=== PATIENT | male | born 1955 | race Caucasian/White ===

== ENCOUNTER 2023-02-20 09:45 | Outpatient (CLI) | payer MEDICARE, OTHER, SELFPAY ==
[2023-02-20 22:27] LABS: PSA Screen* < 0.06 ng/mL (0.10-4.00)
== END 2023-02-20 09:46 | disposition home or self-care (01) ==
PROVIDERS: Visit Provider Nurse Practitioner Family
DX: Z00.00 Encounter for general adult medical examination without abnormal findings (principal); E78.5 Hyperlipidemia, unspecified; I10 Essential (primary) hypertension; R53.83 Other fatigue; I48.0 Paroxysmal atrial fibrillation; R06.09 Other forms of dyspnea; Z85.46 Personal history of malignant neoplasm of prostate
CPT/HCPCS: 84153; 84443; 85025; 86376

== ENCOUNTER 2023-03-27 19:53 | Outpatient (CLI) | payer OTHER, MEDICARE, SELFPAY ==
--- NOTE | 2023-04-03 08:48 | W.PM.SLEEP ---
Sleep Study Details Details Interpreting Provider: Rosalind Date of Sleep Study: 03/27/23 Sleep Study Details: STUDY TYPE:? Home unattended ? BMI:? 30.2 ORDERING PROVIDER:Melvin Mccauley INDICATION:? Concerns about sleep apnea ? SLEEP SUMMARY:? 469 minutes monitored RESPIRATORY SUMMARY:? AHI 56.7, left lateral 47.3, right lateral 72.8 Low oxygen 83 70.7% of the study oxygen less than 90% Snoring 0.8% PERIODIC LIMB MOVEMENTS OF SLEEP:? Not recorded during home study CARDIAC:? Range 52-83, mean 60 beats per minute IMPRESSION:? Severe obstructive sleep apnea worse in the right lateral position. Significant hypo oxygenation noted during 70% of the study. RECOMMENDATION: Recommend in-lab titration due to significant hypo oxygenation. Once effective therapy is established recommend overnight oximetry to determine if patient will require nocturnal oxygen. Further cardiopulmonary evaluation may be indicated.
== END 2023-03-27 19:54 | disposition home or self-care (01) ==
LOC: SLEEP 19:54
PROVIDERS: Visit Provider Nurse Practitioner Family
DX: G47.33 Obstructive sleep apnea (adult) (pediatric) (principal)
CPT/HCPCS: 95806

== ENCOUNTER 2023-04-05 12:44 | Outpatient (CLI) | payer OTHER, MEDICARE, SELFPAY | END 2023-04-05 12:45 | disposition home or self-care (01) | LOC: RAD 12:49 | PROVIDERS: PCP Nurse Practitioner Family; Visit Provider Nurse Practitioner Family | DX: R06.09 Other forms of dyspnea (principal); I51.7 Cardiomegaly; I34.0 Nonrheumatic mitral (valve) insufficiency | CPT/HCPCS: 93306 ==

== ENCOUNTER 2023-05-22 07:27 | Outpatient (CLI) | payer OTHER, MEDICARE, SELFPAY ==
[2023-05-22] MEDS: SODIUM CHLORIDE 0.9 % (FLUSH) 10 ML SYRINGE IVF (09:17)
[2023-05-22] MEDS: REGADENOSON 0.4 MG/5 ML SYRINGE IVP (09:17)
[2023-05-22 09:21] VITALS: BP 212/85; PULSE 77; RESP 16
--- NOTE | 2023-05-22 10:28 | W.PM.STED ---
Stress Test Note Date Date Seen: 05/22/23 Date of test: 05/22/23 Providers Referring provider: Reginaldo King Primary care provider: Sapna Mccauley Stress test physician: Felipa Barger Stress Test Note Stress test ordered: Lexiscan Indication for test: Dyspnea Stress test medicine: Lexiscan Results discussion: Resting EKG: Sinus rhythm, 67 beats per minute. Resting blood pressure: 190/90 Stress test: Patient was exercise following the walking Lexiscan protocol. He did tolerate this. He had no chest pain, felt some dyspnea with this but did not seem clinically significantly altered. He felt brief period of stomach symptoms. There were no definitive EKG changes, quite a bit of artifact during exercise. One PVC was seen. No definite ischemic change or arrhythmia. Await nuclear images to couple this for a full formal diagnostic. Blood pressure was 201/91. Impression: Negative EKG portion of the Lexiscan. Follow up suggested: Patient will get his post stress images taken, all will be sent to Radiology/Cardiology for reading. He will anticipate a call back from his product safety technical assistant's office once this test has been read. He was discharged in stable condition.
== END 2023-05-22 11:37 | disposition home or self-care (01) ==
PROVIDERS: PCP Nurse Practitioner Family; Visit Provider Internal Medicine Cardiovascular Disease
DX: R06.09 Other forms of dyspnea (principal); R06.02 Shortness of breath
CPT/HCPCS: 78452; 93016; 93017; A9500; J2785

== ENCOUNTER 2023-12-20 15:24 | Outpatient (REF) | payer OTHER, MEDICARE, SELFPAY ==
[2023-12-20 18:00] LABS: PSA Screen* < 0.06 ng/mL (0.10-4.00)
== END 2023-12-20 15:25 | disposition home or self-care (01) ==
LOC: NPINS 15:24
PROVIDERS: PCP Nurse Practitioner Family; Visit Provider Urology
DX: C61 Malignant neoplasm of prostate (principal); E78.5 Hyperlipidemia, unspecified
CPT/HCPCS: 80061; G0103

== ENCOUNTER 2024-01-17 10:38 | Outpatient (CLI) | payer MEDICARE, OTHER, SELFPAY ==
--- NOTE | 2024-01-17 11:00 | CRLHL7_ITS ---
For Patients: As a result of the Century Cures Act, medical imaging exams and procedure reports are released immediately into your electronic medical record. You may view this report before your referring provider. If you have questions, please contact your health care provider. Indication: History of pulmonary nodules, former smoker Technique: Noncontrast CT of the chest with multiplanar reformats. Comparison: CT chest abdomen pelvis dated 10/08/2023 Findings: Lungs: No consolidation. No effusion. No pneumothorax. Few scattered pulmonary nodules, largest in the right lower lobe measuring 4 millimeters, unchanged from prior examination with no new or enlarging nodules appreciated. Mediastinum: Three-vessel calcified coronary arterial atherosclerosis. Calcified atherosclerosis of the aorta branch vessels. Lymph nodes: No gross lymphadenopathy. Upper abdomen: Hepatic steatosis. Soft tissues: No significant abnormality appreciated. Bones: Degenerative changes of the spine and pelvis. Impression: 1. Few scattered pulmonary nodules, unchanged from prior examination no new or enlarging nodules appreciated. No dedicated follow-up recommended. 2. Three-vessel calcified coronary arterial atherosclerosis. 3. Hepatic steatosis. Please note that all CT scans at this facility use dose modulation, iterative reconstruction, and/or weight-based dosing when appropriate to reduce radiation dose to as low as reasonably achievable. Dictated by Deny Durham MD @ 01/22/2024 5:05:37 PM (Electronically Signed)
== END 2024-01-17 10:39 | disposition home or self-care (01) ==
LOC: CT 10:39
PROVIDERS: PCP Nurse Practitioner Family; Visit Provider Nurse Practitioner Family
DX: Z87.898 Personal history of other specified conditions (principal); R91.8 Other nonspecific abnormal finding of lung field; I25.10 Atherosclerotic heart disease of native coronary artery without angina pectoris; K76.0 Fatty (change of) liver, not elsewhere classified; Z87.891 Personal history of nicotine dependence
CPT/HCPCS: 71250

== ENCOUNTER 2024-02-19 07:54 | Outpatient (CLI) | payer OTHER, MEDICARE, SELFPAY ==
--- NOTE | 2024-02-19 09:26 | W.ANESCHARGE ---
Anesthesia Charges Start Date/Time Anesthesia Start Date: 02/19/24 Anesthesia Start Time: 08:45 Stop Date/Time Anesthesia Stop Date: 02/19/24 Anesthesia Stop Time: 09:21
--- NOTE | 2024-02-19 10:24 | W.ANESCHARGE ---
Anesthesia Charges Start Date/Time Anesthesia Start Date: 02/19/24 Anesthesia Start Time: 08:45 Stop Date/Time Anesthesia Stop Date: 02/19/24 Anesthesia Stop Time: 09:21
== END 2024-02-19 07:55 | disposition home or self-care (01) ==
PROVIDERS: PCP Nurse Practitioner Family; Visit Provider Surgery
DX: Z12.11 Encounter for screening for malignant neoplasm of colon (principal); K63.89 Other specified diseases of intestine; K57.30 Diverticulosis of large intestine without perforation or abscess without bleeding
CPT/HCPCS: 00811; 45380; 88305; J2704

== ENCOUNTER 2024-03-25 08:14 | Outpatient (CLI) | payer MEDICARE, OTHER, SELFPAY ==
--- OUTSIDE RECORDS SUMMARY | 2024-03-25 08:28 | XMS_ITS | Encounter Summary ---
Author Organization [facility] Address [address] [place] [address] Care Team Providers Care Wine Merchant Name Role Phone Bin Camacho MD Primary Care Provider [phone] Encounter Details Date Type Department Care Team (Late st Contact Info) Description 02/13/2024 Orders Only [facility] [place] [address] [facility] [address] [place] [address] Jagjit Martinez MD [address] [place] [address] Social History Tobacco Use Types Packs/Day Years Used Date Smoking Tobacco: Former Cigarettes Q uit: 1989 Smokeless Tobacco: Never Alcohol Use Standard Drinks/Week Comments Not Currently 0 (1 standard drink = 0.6 oz pur e alcohol) quit 30 yrs ago Sex and Gender Information Value Date Recorded Sex Assigned at Not on file Gender Identity Not on file Sexual Orientation Not on file documented as of this encounter Plan of Treatment Not on file documented as of this encounter Procedures Procedure Name Priority Date/Time Associated Diagnosis Comments HD KINETICS Routine 02/13/2024 POST CHEMISTRY Routine 02/13/2024 HEMATOLOGY Routine 02/13/2024 CHEMISTRY Routine 02/13/2024 CHEMISTRY Routine 02/13/2024 [facility] RESULTS Routine 02/13/2024 documented in this encounter Results * [facility] Lab Results (02/13/2024) eKdrt/V 1.43 [facility] eNPCR 1.12 [facility] WSTDKT/V 2.5 [facility] eKt/V ([place]) 1.37 [facility] PCR 74.15 [facility] spKt/V Gotch 1.69 [facility] [place] eKt/V Gotch 1.43 [facility] e Center nPCR_HD 1.21 [facility] spKt/V (Daugirdas II) 1.59 [facility] 02/13/2024 02/13/2024 Ordering Provider LAB BLOOD ORDERABLE S [facility] Contact Performing lab Unknown, [place] * HD KINETICS (02/13/2024) Pathologist [facility] % Urea Reduction 74 65 - 80 % [facility] 02/13/2024 02/15/2024 6:3 4 AM CDT Narrative Resulting Agency Comment Specimen source: Plasma Jagjit Martinez MD LAB BLOOD ORDERABLES [facility] See order comments or contact performing lab Unknown, [place] * POST CHEMISTRY (02/13/2024) Pathologist [facility] BUN Post Dialysis 17 6 - 19 mg/dL [facility] 02/13/2024 02/15/2024 6:3 4 AM CDT Narrative [facility] - 02/15/2024 Unless otherwise specified, test(s) performed at: [facility], [address] [place] [address], [place] [address] INJECTION WAX MOLDER: Arnoldo Patricio M.D., Ph.D For any questions, please call customer service at FREQUENCY:MONTHLY Resulting Agency Comment Specimen source: Plasma Jagjit Martinez MD LAB BLOOD ORDERABLES [facility] See order comments or contact performing lab Unknown, [place] * (ABNORMAL) [facility] Chemistry (02/13/2024) BUN 66(H) 6 - 19 mg/dL [facility] Creatinine 8.88(H) 0.60 - 1.30 mg/dL [facility] BUN/Creatinine Ratio 7.4(L) 10.0 - 20.0 [facility] Sodium 138 136 - 145 mEq/L [facility] Potassium 4.9 3.5 - 5.1 mEq/L [facility] Chloride 104 96 - 108 mEq/L [facility] Bicarbonate (CO2) 23 20 - 31 mEq/L [facility] Calcium 9.9 8.7 - 10.4 mg/dL [facility] Comment: Please note change in reference range. Corrected Calcium 9.7 8.7 - 10.4 mg/dL [facility] Comment: Corrected Calcium is not equivalent to measured Ionized Calcium. Phosphorus 4.4 2.6 - 4.5 mg/dL [facility] Calcium Phosphorus Product 44 0 - 54 [facility] Calcium Phosporus Product, Cor 43 0 - 54 [facility] Alkaline Phosphatase 145(H) 40 - 129 U/L [facility] Total Protein 6.6 6.0 - 8.5 g/dL [facility] Albumin 4.2 3.5 - 5.2 g/dL [facility] Globulin, Total 2.4 2.0 - 4.0 g/dL [facility] A/G Ratio 1.8 1.0 - 2.0 [facility] Magnesium 2.2 1.6 - 2.6 mg/dL [facility] Ferritin 1,114(H) 22 - 322 ng/mL [facility] Iron 231(H) 45 - 160 mcg/dL [facility] UIBC <25(L) 155 - 355 mcg/dL [facility] TIBC 245 185 - 515 mcg/dL [facility] Iron Saturation (TSat) 94(H) 20 - 55 % [facility] 02/13/2024 02/15/2024 4:4 6 AM CDT Narrative [facility] - 02/15/2024 Unless otherwise specified, test(s) performed at: [facility], [address] [place] [address], [place] [address] INJECTION WAX MOLDER: Arnoldo Patricio M.D., Ph.D For any questions, please call customer service at FREQUENCY:MONTHLY Resulting Agency Comment Specimen source: Serum Jagjit Martinez MD LAB BLOOD ORDERABLES [facility] See order comments or contact performing lab Unknown, [place] * (ABNORMAL) HEMATOLOGY (02/13/2024) WBC 9.31 4.80 - 10.80 1000/mcL [facility] RBC 3.31(L) 4.70 - 6.10 mill/mcL [facility] Hematocrit 34.9(L) 42.0 - 52.0 % [facility] MCV 105(H) 80 - 100 fl [facility] MCH 32.2(H) 27.0 - 31.0 pg [facility] MCHC 30.5 30.0 - 36.0 g/dL [facility] RDW 12.8 11.5 - 14.5 % [facility] Hemoglobin 10.6(L) 14.0 - 18.0 g/dL [facility] Hemoglobin x 3 31.8(L) 42.0 - 54.0 % [facility] Platelets 254 130 - 400 1000/mcL [facility] 02/13/2024 02/15/2024 6:2 5 AM CDT Narrative [facility] - 02/15/2024 Unless otherwise specified, test(s) performed at: [facility], [address] [place] [address], [place] [address] INJECTION WAX MOLDER: Arnoldo Patricio M.D., Ph.D For any questions, please call customer service at FREQUENCY:MONTHLY Resulting Agency Comment Specimen source: Blood Jagjit Martinez MD LAB BLOOD ORDERABLES [facility] See order comments or contact performing lab Unknown, [place] * (ABNORMAL) [facility] Chemistry (02/13/2024) PTH 551(H) 16 - 80 pg/mL [facility] 02/13/2024 02/15/2024 4:1 7 AM CDT Narrative [facility] - 02/15/2024 Unless otherwise specified, test(s) performed at: [facility], [address] [place] [address], [place] [address] INJECTION WAX MOLDER: Arnoldo Patricio M.D., Ph.D For any questions, please call customer service at FREQUENCY:MONTHLY Resulting Agency Comment Specimen source: Plasma Jagjit Martinez MD LAB BLOOD ORDERABLES [facility] See order comments or contact performing lab Unknown, [place] documented in this encounter Visit Diagnoses Not on filedocumented in this encounter Care Teams Wine Merchant Relationship Specialty [place] [address] [place] [address] PCP - General Family Medicine 09/08/20 documented as of this encounter
--- OUTSIDE RECORDS SUMMARY | 2024-03-25 08:28 | XMS_ITS | Encounter Summary ---
Author Organization [facility] Address [address] [place] [address] Care Team Providers Care Surgical Supply Assistant Name Role Phone Bin Camacho MD Primary Care Provider [phone] Encounter Details Date Type Department Care Team (Late st Contact Info) Description 03/24/2024 Treatment [facility] [place] [address] [place] [address] Jagjit Martinez MD [address] [place] [address] Social History Tobacco Use Types [...] on file documented as of this encounter Miscellaneous Notes * Dialysis Note - Jagjit Martinez MD - 03/24/2024 11:07 AM CDT Date: Mar 24, 2024 Patient Name: Obi Mcdowell : 1955 Chart #: [id number] Sex: M This patient was personally seen for a complete visit as part of routine monthly dialysis care. A review of the dialysis treatment, blood pressure, estimated dry weight and recent lab values was made. These were discussed with the patient and staff as necessary. Treatment Medication Orders Medication Sig Start Date End Date Heparin Sodium (Porcine) 1,000 Units/mL Systemic 2000 units IVP Every Treatment 03/21/2024 03/20/2025 Heparin Sodium (Porcine) 1,000 Units/mL Systemic 3000 units IVP Every Treatment 01/02/2024 12/31/2024 Mircera 30 mcg IVP Every 4 weeks 02/20/2024 02/18/2025 HAND RUG BRAIDER: Jagjit Martinez MD LOCATION: [phone] SCHEDULE: -- 1st Shift EDW: kg. DIALYZER: HD DURATION: NEEDLE SIZE: ANTICOAG: BATH: QB: ml/min QD: ml/min Subjective Tolerating dialysis well. Good appetite. Reports no trouble with access. 03/24/24: He is feeling well. He did get hypotensive after treatment on Sunday afterward and felt woozy for a short time after he left. I was called and EDW was increased. He felt well over the weekend. Advanced Practitioner Subjective FOOD MIXER REPAIRER 03/05/2024: Patient seen at chairside. Doing good. Had recent mole removal. Several follow-ups scheduled. He has another area on his abdomen that will be removed next. He reports that he will see ENT today after dialysis for evaluation for Inspire for sleep apnea. Denies SOB, chest pain, crampingor dizziness. AVF has been functional; no reported issues from staff. BP stable. Leaving close to EDW with recent runs. Continue plan of care. FOOD MIXER REPAIRER 01/28/2024: Seen while on dialysis. States that he feels good. Denies SOB, chest pain, cramping or dizziness. AVF in use and functional, no reported staff issues. BP stable on treatment. He had recent EDW increase. Episodes of dizziness and hypotension has improved. Continues to complete Tx work-up. He saw Dermatology 2 weeks ago; biopsies obtained. Waiting for results. Will continue to challenge EDW as tolerated. Review of Systems None reported. Except as above. 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 Cardiovascular - Regular rate. Regular rhythm. No murmur heard. Edema - No leg edema. Access - AVF lower arm in use and good t/b Medication List Medication Sig Start Date atorvastatin 20 mg tablet once a day. take 1 tablet by mouth every night at bedtime. clonidine HCl 0.2 mg tablet Take 1/2 tablet by mouth twice a day as directed. do not take before dialysis Eliquis (apixaban) 5 mg tablet Take 1 tablet by mouth twice a day 03/24/2024 hydralazine 50 mg tablet Take 1 tablet by mouth three times a day as directed. do not take before dialysis. 11/07/2023 metoprolol tartrate 50 mg tablet Take 1 tablet by mouth twice a day as directed. does not take before dialysis MWF nifedipine 60 mg tablet extended release Take 1 tablet by mouth twice a day as directed omeprazole 20 mg tablet,delayed release (DR/EC) Take 1 tablet by mouth as directed as directed. prn RenaPlex-D (vit b,f-qu-exqc-selen-vit d3-e) 800 mcg-12.5 mg-2,000 unit tablet Take 1 tablet by mouth every evening 01/14/2024 Sensipar (cinacalcet) 30 mg tablet Take 1 tablet by mouth once a day as directed. TAKE 1 TABLET BY MOUTH EVERY DAY Velphoro (sucroferric oxyhydroxide) 500 mg tablet,chewable Take 3 tablet by mouth three times a daywith meals 11/12/2023 Allergy List Allergen Reaction Reaction Severity Onset Date nkda Medications reviewed and no changes were made. Treatment and Adequacy Assessment BUN mg/dL 72 (03/12/24) 66 (02/13/24) 78 (01/09/24) 77 (12/12/23) 59 (11/07/23) UREA NITROGEN (MG/DL) IN SER/PLAS - POST DIALYSIS mg/dL 20 (03/12/24) 17 (02/13/24) 21 (01/09/24) 20 (12/12/23) 16 (11/07/23) URR % 72 (03/12/24) 74 (02/13/24) 73 (01/09/24) 74 (12/12/23) 73 (11/07/23) spKt/V Gotch 1.56 (03/12/24) 1.69 (02/13/24) 1.56 (01/09/24) 1.66 (12/12/23) 1.56 (11/07/23) eKdrt/V 1.32 (03/12/24) 1.43 (02/13/24) 1.32 (01/09/24) 1.41 (12/12/23) 1.32 (11/07/23) spKt/V (Daugirdas II) 1.4900 (03/12/24) 1.5900 (02/13/24) 1.5100 (01/09/24) 1.5800 (12/12/23) 1.5100 (11/07/23) Dialysis is adequate. Achieves prescribed time - Yes Achieves prescribed frequency - Yes Continue current prescription. Vascular Access Assessment Type of access: FistulaRUE lower arm Anemia Assessment HEMOGLOBIN (G/DL) IN BLOOD g/dL 11.2 (03/19/24) 10.9 (03/12/24) 11.2 (03/05/24) 10.9 (02/27/24) 10.5 (02/20/24) PLATELETS 1000/mcL 256 (03/12/24) 254 (02/13/24) 259 (01/09/24) 229 (12/12/23) 283 (11/07/23) FERRITIN ng/mL 1114 (02/13/24) 689 (11/07/23) 581 (08/15/23) 477 (05/09/23) 365 (04/11/23) TRANSFERRIN SAT% % 75 (03/12/24) 94 (02/13/24) 62 (01/09/24) 60 (12/12/23) 58 (11/07/23) Hemoglobin is above goal. Iron Saturation is at goal. Ferritin is at goal. Will adjust ELIANA and intravenous iron per protocol. Nutritional and Metabolic Assessment ALBUMIN (G/DL) g/dL 4.2 (03/12/24) 4.2 (02/13/24) 4.1 (01/09/24) 4.1 (12/12/23) 4.3 (11/07/23) Sodium mEq/L 138 (03/12/24) 138 (02/13/24) 138 (01/09/24) 139 (12/12/23) 138 (11/07/23) POTASSIUM (MMOL/L) IN SER/PLAS mEq/L 4.6 (03/12/24) 4.9 (02/13/24) 4.1 (01/09/24) 4.5 (12/12/23) 4.3 (11/07/23) BICARBONATE (CO2) mEq/L 23 (03/12/24) 23 (02/13/24) 22 (01/09/24) 22 (12/12/23) 25 (11/07/23) 25 OH VITAMIN D ng/mL 27.7 (11/07/23) 30.2 (05/09/23) Albumin is at goal. Encourage high-biological value protein intake. Potassium is at goal. Bicarbonate is at goal. Continue same bicarbonate in dialysate. Bone and Mineral Metabolism Assessment CALCIUM mg/dL 10.3 (03/12/24) 9.9 (02/13/24) 9.5 (01/09/24) 9.5 (12/12/23) 9.9 (11/07/23) CALCIUM (MG/DL) CORRECTED FOR ALBUMIN IN SER/PLAS mg/dL 10.1 (03/12/24) 9.7 (02/13/24) 9.4 (01/09/24) 9.4 (12/12/23) 9.7 (11/07/23) PHOSPHATE (MG/DL) IN SER/PLAS mg/dL 5.9 (03/12/24) 4.4 (02/13/24) 4.7 (01/09/24) 4.4 (12/12/23) 4.6 (11/28/23) CALCIUM PHOSPHORUS PRODUCT, COR 60 (03/12/24) 43 (02/13/24) 44 (01/09/24) 41 (12/12/23) 62 (11/07/23) IPTH pg/mL 551 (02/13/24) 596 (11/07/23) 681 (10/10/23) 796 (09/19/23) 694 (09/12/23) Corrected Calcium is above goal. Phosphorous is above goal. Intact PTH is at goal. Last Model Department Supervisor will adjust binders and vitamin D per protocol and continue to provide dietary education. Continue Sensipar - he was out for a couple of weeks prior to lab but is now back on so will keep dose 30mg and re-check Velphoro increased to 3 with meals previously Cardiovascular Assessment Blood pressures reviewed and are acceptable. Intradialytic weight gains are appropriate. Estimated dry weight is too low, will increase. Continue same cardiovascular medications. Increase EDW by 1 kg Transplant Status: Patient has evaluation underway. Center - [place] He declines COVID vaccination. I notified him on 01/22/23 that COVID vaccine policy has changed to recommended rather than required and he is being worked up. Nearing completion of work-up to be listed, c-scope completed in February. Had skin cancer removed. To have PSA checked and sent to his Urologist. Hopefully will be active by end of year Resuscitation Status Discussed with patient 05/23/22 who requested Full Code. Stable dialysis, no changes today beside increase in EDW as above Change NOAC to Eliquis which is better with dialysis patients Will discuss with Tx, however, as may need to be on warfarin when becomes active on kidney Tx list. Jagjit Martinez MD [ Signed And locked electronically On 03/24/2024 at 11:10:36 AM ] Transcribed: Jagjit Martinez ( 03/24/2024 ) documented in this encounter Plan of Treatment Not on file documented as of this encounter Visit Diagnoses Not on filedocumented in this encounter Care Teams Surgical Supply Assistant Relationship Specialty [place] [address] [place] [address] PCP - General Family Medicine 09/08/20 documented as of this encounter
--- OUTSIDE RECORDS SUMMARY | 2024-03-25 08:28 | XMS_ITS | Encounter Summary ---
Author Organization [facility] Address [address] [place] [address] Care Team Providers Care Newborn Hearing Screener Name Role Phone Bin Camacho MD Primary Care Provider [phone] Encounter Details Date Type Department Care Team (Late st Contact Info) Description 02/22/2024 Treatment [facility] [address] [place] [address] Jagjit Martinez MD [address] [place] [address] Social History Tobacco Use Types [...] Dialysis Note - Jagjit Martinez MD - 02/22/2024 10:40 AM CDT Date: Feb 22, 2024 Patient Name: Obi Mcdowell : 1955 Chart #: [id number] Sex: M This patient was personally seen for a complete visit as part of routine monthly dialysis care. A review of the dialysis treatment, blood pressure, estimated dry weight and recent lab values was made. These were discussed with the patient and staff as necessary. Treatment Data for 02/22/2024 started at:6:16 AM Dialyzer: 180NRe Optiflux Na: 137 mEq/L Bicarb: 31 mEq/L Dialysate: 2.0 K, 2.5 Ca, 1.0 Mg, 100 Dextrose (G2251) Dialysate/Machine Temp (prescribed): 37 C Dialysate/Machine Temp (actual): 37.4 C BFR (prescribed): 450 BFR (actual): 450 Prescribed time: 03:30 EDW: 105 kg Access Type: Active (In Use):AVFistula-Standard/Right Upper Arm Pre Dialysis Vitals (for 02/22/2024 6:06 AM ) Pre BP (sit): 129/68 Pre Wt: 107.6 kg Temp: 97.8 F Post Dialysis Vitals (for 02/20/2024 9:52 AM ) Post BP (sit): 147/73 Post Wt: 105 kg Current Dialysis Vitals (for 02/22/2024 9:32 AM ) BP (sit): 119/65 AP(-) / SIZING SPRAYER: 219/172 Pulse: 68 Chairside data as of 02/22/2024 9:32 AM Last 3 Treatments 02/20/2024 02/18/2024 02/15/2024 EDW (kg) 105.3 105.3 105.3 Weight Pre (kg) 106.9 109.2 107.5 Weight Post (kg) 105 105.8 105.2 Dialytic Weight Loss (kg) -1.9 -3.4 -2.3 EDW Deviation (kg) -0.3 0.5 -0.1 BP Sit Pre 144/68 148/80 126/67 BP Sit Post 147/73 130/67 115/69 UF Rate (mL/kg/hr) 5 9 6 Prescribed BFR 450 450 450 Average Delivered BFR 450 450 450 Prescribed Treatment Time 03:30 03:30 03:30 Actual Treatment Time 03:35 03:30 03:33 Last 3 Values 02/11/2024 12/21/2023 12/14/2023 Access Flow 6372 1106 > 2000 Treatment Medication Orders Medication Sig Start Date End Date Heparin Sodium (Porcine) 1,000 Units/mL Systemic 3000 units IVP Every Treatment 01/02/2024 12/31/2024 Mircera 30 mcg IVP Every 4 weeks 02/20/2024 02/18/2025 BILINGUAL LOAN PROCESSOR: Jagjit Martinez MD LOCATION: [phone] SCHEDULE: - 1st Shift EDW: kg. DIALYZER: HD DURATION: NEEDLE SIZE: ANTICOAG: BATH: QB: ml/min QD: ml/min Subjective Tolerating dialysis well. Good appetite. Reports no trouble with access. 02/22/24: He is doing very well. Had c-scope done and it was clear. Has skin cancer removal scheduled in [place]. No symptoms on dialysis. BP controlled. Denies any new symptoms. AVF working well. Advanced Practitioner Subjective PHLEBOTOMIST LAB ASSISTANT 01/28/2024: Seen while on dialysis. States that [...] Will continue to challenge EDW as tolerated. PHLEBOTOMIST LAB ASSISTANT 12/12/2023: Patient seen at chairside. Feeling well. Has a few things to complete for transplant listing. Denies SOB, chest pain, cramping or dizziness. AVF has been functional; no reported issues from staff. BP stable. Leaving close to EDW with recent runs. Continue plan of care. Review of Systems None reported. Except as [...] Exam Respiratory - Clear to auscultation bilaterally. nl effort Cardiovascular - Regular rate. Regular rhythm. No [...] as directed. do not take before dialysis hydralazine 50 mg tablet Take 1 tablet [...] as directed as directed. prn RenaPlex-D (vit b,a-lj-puli-selen-vit d3-e) 800 mcg-12.5 mg-2,000 unit tablet Take 1 tablet by mouth every evening 01/14/2024 Sensipar (cinacalcet) 30 mg tablet Take 1 tablet by mouth once a day as directed. TAKE 1 TABLET BY MOUTH EVERY DAY Velphoro (sucroferric oxyhydroxide) 500 mg tablet,chewable Take 3 tablet by mouth three times a daywith meals 11/12/2023 Xarelto (rivaroxaban) 10 mg tablet Take 1 tablet by mouth every evening with meals Allergy List Allergen Reaction Reaction Severity Onset Date nkda Medications reviewed and no changes were made. Treatment and Adequacy Assessment BUN mg/dL 66 (02/13/24) 78 (01/09/24) 77 (12/12/23) 59 (11/07/23) 80 (10/10/23) UREA NITROGEN (MG/DL) IN SER/PLAS - POST DIALYSIS mg/dL 17 (02/13/24) 21 (01/09/24) 20 (12/12/23) 16 (11/07/23) 22 (10/10/23) URR % 74 (02/13/24) 73 (01/09/24) 74 (12/12/23) 73 (11/07/23) 73 (10/10/23) spKt/V Gotch 1.69 (02/13/24) 1.56 (01/09/24) 1.66 (12/12/23) 1.56 (11/07/23) 1.59 (10/10/23) eKdrt/V 1.43 (02/13/24) 1.32 (01/09/24) 1.41 (12/12/23) 1.32 (11/07/23) 1.35 (10/10/23) spKt/V (Daugirdas II) 1.5900 (02/13/24) 1.5100 (01/09/24) 1.5800 (12/12/23) 1.5100 (11/07/23) 1.5200 (10/10/23) Dialysis is adequate. Achieves prescribed time - Yes Achieves prescribed frequency - Yes Continue current prescription. Vascular Access Assessment Type of access: FistulaRUE lower arm Anemia Assessment HEMOGLOBIN (G/DL) IN BLOOD g/dL 10.5 (02/20/24) 10.6 (02/13/24) 10.2 (02/06/24) 11.3 (01/30/24) 11.4 (01/23/24) PLATELETS 1000/mcL 254 (02/13/24) 259 (01/09/24) 229 (12/12/23) 283 (11/07/23) 290 (10/10/23) FERRITIN ng/mL 1114 (02/13/24) 689 (11/07/23) 581 (08/15/23) 477 (05/09/23) 365 (04/11/23) TRANSFERRIN SAT% % 94 (02/13/24) 62 (01/09/24) 60 (12/12/23) 58 (11/07/23) 97 (10/10/23) Hemoglobin is at goal. Iron Saturation is at goal. Ferritin is at goal. Will adjust ELIANA and intravenous iron per protocol. Nutritional and Metabolic Assessment ALBUMIN (G/DL) g/dL 4.2 (02/13/24) 4.1 (01/09/24) 4.1 (12/12/23) 4.3 (11/07/23) 4.4 (10/10/23) Sodium mEq/L 138 (02/13/24) 138 (01/09/24) 139 (12/12/23) 138 (11/07/23) 138 (10/10/23) POTASSIUM (MMOL/L) IN SER/PLAS mEq/L 4.9 (02/13/24) 4.1 (01/09/24) 4.5 (12/12/23) 4.3 (11/07/23) 4.6 (10/10/23) BICARBONATE (CO2) mEq/L 23 (02/13/24) 22 (01/09/24) 22 (12/12/23) 25 (11/07/23) 25 (10/10/23) 25 OH VITAMIN D ng/mL 27.7 (11/07/23) 30.2 (05/09/23) Albumin is at goal. Encourage high-biological value protein intake. Potassium is at goal. Bicarbonate is at goal. Continue same bicarbonate in dialysate. Bone and Mineral Metabolism Assessment CALCIUM mg/dL 9.9 (02/13/24) 9.5 (01/09/24) 9.5 (12/12/23) 9.9 (11/07/23) 9.5 (10/10/23) CALCIUM (MG/DL) CORRECTED FOR ALBUMIN IN SER/PLAS mg/dL 9.7 (02/13/24) 9.4 (01/09/24) 9.4 (12/12/23) 9.7 (11/07/23) 9.2 (10/10/23) PHOSPHATE (MG/DL) IN SER/PLAS mg/dL 4.4 (02/13/24) 4.7 (01/09/24) 4.4 (12/12/23) 4.6 (11/28/23) 6.4 (11/07/23) CALCIUM PHOSPHORUS PRODUCT, COR 43 (02/13/24) 44 (01/09/24) 41 (12/12/23) 62 (11/07/23) 62 (10/10/23) IPTH pg/mL 551 (02/13/24) 596 (11/07/23) 681 (10/10/23) 796 (09/19/23) 694 (09/12/23) Corrected Calcium is at goal. Phosphorous is at goal. Intact PTH is at goal. Retail Sales Professional will adjust binders and vitamin D per protocol and continue to provide dietary education. Continue Sensipar Velphoro increased to 3 with meals previously Cardiovascular Assessment Blood pressures reviewed and are acceptable. Intradialytic weight gains are appropriate. Estimated dry weight is appropriate. Continue same cardiovascular medications. He is doing better with fluid overall. Continue to work on consistent fluid gains that we can pull with <13 ml/kg/hr UF Transplant Status: Patient has evaluation underway. [place] He declines COVID vaccination. I notified him on 01/22/23 that COVID vaccine policy has changed to recommended rather than required and he is being worked up. Nearing completion of work-up to be listed, c-scope completed in February. Has to have a skin cancer removed over low abdomen next. Resuscitation Status Discussed with patient 05/23/22 who requested Full Code. Stable dialysis, no changes today. Jagjit Martinez MD [ Signed And locked electronically On 02/22/2024 at 10:41:37 AM ] Transcribed: Jagjit Martinez ( 02/22/2024 ) documented in this encounter Plan of Treatment Not on file documented as of this encounter Visit Diagnoses Not on filedocumented in this encounter Care Teams Newborn Hearing Screener Relationship Specialty [place] [address] [place] [address] PCP - General Family Medicine 09/08/20 documented as of this encounter
--- OUTSIDE RECORDS SUMMARY | 2024-03-25 08:28 | XMS_ITS | Encounter Summary ---
Author Organization [facility] Address [address] [place] [address] Care Team Providers Care Pedodontist Name Role Phone Bin Camacho MD Primary Care Provider [phone] Encounter Details Date Type Department Care Team (Late st Contact Info) Description 03/05/2024 Orders Only [facility] [place] [address] [facility] [address] [place] [address] Jagjit Martinez MD [address] [place] [address] Social History Tobacco Use Types [...] Procedure Name Priority Date/Time Associated Diagnosis Comments HEMATOLOGY Routine 03/05/2024 documented in this encounter Results * (ABNORMAL) HEMATOLOGY (03/05/2024) Hemoglobin 11.2(L) 14.0 - 18.0 g/dL [facility] Hemoglobin x 3 33.6(L) 42.0 - 54.0 % [facility] 03/05/2024 03/06/2024 7:4 4 AM CDT Narrative [facility] - 03/06/2024 Unless otherwise specified, test(s) performed at: [facility], [address] [place] [address], [place] [address] EMERGENCY VEHICLE OPERATOR: Arnoldo Patricio M.D., Ph.D For any questions, please call customer service at FREQUENCY:OTHER Resulting Agency Comment Specimen source: Blood Jagjit Martinez MD LAB BLOOD ORDERABLES [facility] See order comments or contact performing lab Unknown, [place] documented in this encounter Visit Diagnoses Not on filedocumented in this encounter Care Teams Pedodontist Relationship Specialty [place] [address] [place] [address] PCP - General Family Medicine 09/08/20 documented as of this encounter
--- OUTSIDE RECORDS SUMMARY | 2024-03-25 08:28 | XMS_ITS | Clinical Summary ---
Author Organization [facility] Address [address] [place] [address] Phone Care Team Providers Care River Expedition Guide Name Role Phone Bin Camacho MD Primary Care Provider [phone] Allergies No known active allergies Medications Medication Sig Dispensed Refills Start Date End Date Status cloNIDine (CATAPRES) 0.2 MG tablet Take 0.2 mg by mouth twice a day 08/23/2020 Active clopidogrel (PLAVIX) 75 MG tablet Take 75 mg by mouth 1 (one) time each day 11/01/2020 Active hydrALAZINE 100 MG tablet Take 1 tablet (100 mg total) by mouth in the morning and 1 tablet (100 mg total) at noon and 1 tablet (100 mg total) in the evening and 1 tablet (100 mg total) before bedtime. 360 tablet 3 08/09/2021 Active sodium bicarbonate 650 MG tablet Take 3 tablets (1,950 mg total) by mouth in the morning and 3 tablets (1,950 mg total) in the evening and 3 tablets (1,950 mg total) before bedtime. 810 tablet 3 08/09/2021 Active NIFEdipine XL (PROCARDIA XL) 60 MG 24 hr tablet TAKE 1 TABLET(60 MG) BY MOUTH TWICE DAILY. DO NOT CRUSH, CHEW, OR SPLIT 180 tablet 2 09/26/2021 Active metoprolol tartrate (LOPRESSOR) 50 MG tablet Take 1 tablet (50 mg total) by mouth in the morning and 1 tablet (50 mg total) in the evening. 60 tablet 3 11/29/2021 Active torsemide (Demadex) 20 MG tabletIndications:St age 4 chronic kidney disease (HCC) Take 2 tablets (40 mg total) by mouth 1 (one) time each day 180 tablet 3 01/31/2022 Active calcitriol (ROCALTROL) 0.25 MCG capsule TAKE 1 CAPSULE BY MOUTH THREE TIMES WEEKLY ON SUNDAY, SUNDAY AND SUNDAY 36 capsule 2 03/08/2022 Active Calcium Acetate, Phos Binder, 667 MG capsuleIndications:H yperphosphatemia Take one capsule (667 mg) by mouth before each meal 90 capsule 3 04/06/2022 Active hydroCHLOROthiazide 25 MG tablet Take 1 tablet by mouth 1 (one) time each day Active lisinopril 40 MG tablet Take 40 mg by mouth 1 (one) time each day Active cloNIDine (CATAPRES) 0.1 MG tablet Take 0.1 mg by mouth in the morning and 0.1 mg in the evening. Active Active Problems Problem Noted Date Diagnosed Date Chronic kidney disease stage 4 09/09/2020 Hypertensive disorder 09/09/2020 Encounters Date Type Department Care Team Description 03/24/2024 Treatment [facility] [address] [place] [address] Jagjit Martinez MD 03/19/2024 Orders Only [facility] [address] [facility] [address] [place] [address] Jagjit Martinez MD 03/12/2024 Orders Only [facility] [address] [facility] [address] [place] [address] Jagjit Martinez MD 03/05/2024 Orders Only [facility] [address] [facility] [address] [place] [address] Jagjit Martinez MD 03/05/2024 Treatment [facility] [address] [facility] [address] [place] [address] Rosie Monsivais APRN-ELECTRIC RANGE SERVICER 02/27/2024 Orders Only [facility] [address] [place] [address] Jagjit Martinez MD 02/22/2024 Treatment [facility] [address] [place] [address] Jagjit Martinez MD 02/20/2024 Orders Only [facility] [address] [place] [address] Jagjit Martinez MD 02/13/2024 Orders Only [facility] [address] [facility] [place] [address] Jagjit Martinez MD 02/12/20[address] [facility] [address] [place] [address] Twyla Turk RN 02/06/2024 Orders Only [facility] [address] [place] [address] Jagjit Martinez MD 02/06/2024 Treatment [facility] [address] [place] [address] Jagjit Martinez MD 01/30/2024 Orders Only [facility] [address] [place] [address] Jagjit Martinez MD 01/28/2024 Treatment [facility] [address] [place] [address] Rosie Monsivais, CLOTHES IRONER-ELECTRIC RANGE SERVICER 01/23/2024 Orders Only [facility] [address] [place] [address] Jagjit Martinez MD 01/16/2024 Orders Only [facility] [address] [facility] [place] [address] Jagjit Martinez MD 01/09/2024 Orders Only [facility] [place] [address] [place] [address] Jagjit Martinez MD 01/02/2024 Orders Only [facility] [address] [place] [address] Jagjit Martinez MD 01/02/2024 Treatment [facility] [address] [place] [address] Jagjit Martinez MD 12/26/2023 Orders Only [facility] [address] [facility] [address] [place] [phone] Jagjit Martinez MD from Last 3 Months Family History Medical History Relation Comments Cancer Brother Heart disease Father Cancer Mother Heart disease Sister Hypertension Sister Relation Status Comments Brother Alive Father Mother Sister Alive Social History Tobacco Use Types Packs/Day Years Used Date Smoking Tobacco: Former Cigarettes Q uit: 1989 Smokeless Tobacco: Never Tobacco Cessation:Counseling Given: Not Answered Alcohol Use Standard Drinks/Week Comments Not Currently 0 (1 standard drink = 0.6 oz pur e alcohol) quit 30 yrs ago Sex and Gender Information Value Date Recorded Sex Assigned at Not on file Gender Identity Not on file Sexual Orientation Not on file Last Filed Vital Signs Vital Sign Reading Time Taken Comments Blood Pressure 125/80 04/06/2022 8:51 AM CDT Pulse 80 04/06/2022 8:51 AM CDT Temperature 36.4 ??C (97.5 ??F) 11/05/2020 3:26 PM CD T Respiratory Rate - - Oxygen Saturation - - Inhaled Oxygen Concentration - - Weight 101 kg (223 lb) 04/06/2022 8:51 AM CDT Height 188 cm (6' 2) 01/31/2022 2:43 PM CDT Body Mass Index 28.63 01/31/2022 2:43 PM CDT Plan of Treatment Health Maintenance Due Date Last Done Comments Pneumococcal Vaccine: 65+ Years (1 of 2 - PCV) 961 Hepatitis B Vaccine (1 of 5 - Risk Dialysis 4-dose series) 1974 Colorectal Cancer Screening: Annual FOBT 2003 Colorectal Cancer Screening: Colonoscopy 2003 Colorectal Cancer Screening: Sigmoidoscopy 2003 Influenza Vaccine (#1) 2024 Procedures Procedure Name Priority Date/Time Associated Diagnosis Comments HEMATOLOGY Routine 03/19/2024 [facility] RESULTS Routine 03/12/2024 HD KINETICS Routine 03/12/2024 POST CHEMISTRY Routine 03/12/2024 CHEMISTRY Routine 03/12/2024 HEMATOLOGY Routine 03/12/2024 HEMATOLOGY Routine 03/05/2024 HEMATOLOGY Routine 02/27/2024 HEMATOLOGY Routine 02/20/2024 [facility] RESULTS Routine 02/13/2024 HD KINETICS Routine 02/13/2024 POST CHEMISTRY Routine 02/13/2024 CHEMISTRY Routine 02/13/2024 HEMATOLOGY Routine 02/13/2024 CHEMISTRY Routine 02/13/2024 HEMATOLOGY Routine 02/06/2024 HEMATOLOGY Routine 01/30/2024 HEMATOLOGY Routine 01/23/2024 HEMATOLOGY Routine 01/16/2024 [facility] LAB RESULTS Routine 01/09/2024 HD KINETICS Routine 01/09/2024 CHEMISTRY Routine 01/09/2024 POST CHEMISTRY Routine 01/09/2024 HEMATOLOGY Routine 01/09/2024 HEMATOLOGY Routine 01/02/2024 HEMATOLOGY Routine 12/26/2023 from Last 3 Months Results * (ABNORMAL) HEMATOLOGY (03/19/2024) Only the most recent of13 resultswithin the time period is included. Pathologist [facility] Hemoglobin 11.2(L) 14.0 - 18.0 g/dL [facility] Hemoglobin x 3 33.6(L) 42.0 - 54.0 % [facility] 03/19/2024 03/20/2024 3:4 7 PM CDT Narrative [facility] - 03/20/2024 Unless otherwise specified, test(s) performed at: [facility], [address] [place] [address], [place] [address] DENIER CONTROL OPERATOR: Arnoldo Patricio M.D., Ph.D For any questions, please call customer service at FREQUENCY:OTHER Resulting Agency Comment Specimen source: Blood Jagjit Martinez MD LAB BLOOD ORDERABLES Performing Organization Address [facility] de Phone Number [email or web address] See order comments or contact performing lab Unknown, [place] * HD KINETICS (03/12/2024) Only the most recent of3 resultswithin the time period is included. Pathologist [facility] % Urea Reduction 72 65 - 80 % [facility] 03/12/2024 03/14/2024 2:4 9 PM CDT Narrative Resulting Agency Comment Specimen source: Plasma Jagjit Martinez MD LAB BLOOD ORDERABLES Performing Organization Address [facility] de Phone Number [email or web address] See order comments or contact performing lab Unknown, [place] * (ABNORMAL) POST CHEMISTRY (03/12/2024) Only the most recent of3 resultswithin the time period is included. BUN Post Dialysis 20(H) 6 - 19 mg/dL [facility] 03/12/2024 03/14/2024 2:4 9 PM CDT Narrative [facility] - 03/14/2024 Unless otherwise specified, test(s) performed at: [facility], [address] [place] [address], [place] [address] DENIER CONTROL OPERATOR: Arnoldo Patricio M.D., Ph.D For any questions, please call customer service at FREQUENCY:MONTHLY Resulting Agency Comment Specimen source: Plasma Jagjit Martinez MD LAB BLOOD ORDERABLES [facility] See order comments or contact performing lab Unknown, [place] * (ABNORMAL) [facility] (03/12/2024) Only the most recent of4 resultswithin the time period is included. BUN 72(H) 6 - 19 mg/dL [facility] Creatinine 8.45(H) 0.60 - 1.30 mg/dL [facility] BUN/Creatinine Ratio 8.5(L) 10.0 - 20.0 [facility] Sodium 138 136 - 145 mEq/L [facility] Potassium 4.6 3.5 - 5.1 mEq/L [facility] Chloride 102 96 - 108 mEq/L [facility] Bicarbonate (CO2) 23 20 - 31 mEq/L [facility] Calcium 10.3 8.7 - 10.4 mg/dL [facility] Comment: Please note change in reference range. Custom Exception Corrected Calcium 10.1 8.7 - 10.4 mg/dL [facility] Comment: Corrected Calcium is not equivalent to measured Ionized Calcium. Phosphorus 5.9(H) 2.6 - 4.5 mg/dL [facility] Calcium Phosphorus Product 61(H) 0 - 54 [facility] Calcium Phosporus Product, Cor 60(H) 0 - 54 [facility] Total Protein 6.7 6.0 - 8.5 g/dL [facility] Albumin 4.2 3.5 - 5.2 g/dL [facility] Globulin, Total 2.5 2.0 - 4.0 g/dL [facility] A/G Ratio 1.7 1.0 - 2.0 [facility] Iron 200(H) 45 - 160 mcg/dL [facility] UIBC 65(L) 155 - 355 mcg/dL [facility] TIBC 265 185 - 515 mcg/dL [facility] Iron Saturation (TSat) 75(H) 20 - 55 % [facility] 03/12/2024 03/14/2024 2:1 3 PM CDT Narrative [facility] - 03/14/2024 Unless otherwise specified, test(s) performed at: [facility], [address] [place] [address], [place] [address] DENIER CONTROL OPERATOR: Arnoldo Patricio M.D., Ph.D For any questions, please call customer service at FREQUENCY:MONTHLY Resulting Agency Comment Specimen source: Serum Jagjit Martinez MD LAB BLOOD ORDERABLES [facility] See order comments or contact performing lab Unknown, [place] * [facility] Results (03/12/2024) Only the most recent of3 resultswithin the time period is included. PCR 78.86 [facility] spKt/V Gotch 1.56 [facility] eKdrt/V 1.32 [facility] eNPCR 1.15 [facility] eKt/V ([place]) 1.28 [facility] WSTDKT/V 2.4 [facility] eKt/V Gotch 1.32 [facility] e [facility] spKt/V (Daugirdas II) 1.49 [facility] nPCR_HD 1.30 [facility] 03/12/2024 03/12/2024 [place] Ordering Provider LAB BLOOD ORDERABLE S [facility] Contact Performing lab Unknown, [place] from Last 3 Months Care Teams River Expedition Guide Relationship Specialty [place] [address] [place] [address] PCP - General Family Medicine 09/08/20
--- OUTSIDE RECORDS SUMMARY | 2024-03-25 08:28 | XMS_ITS | Encounter Summary ---
Author Organization [facility] Address [address] [facility] [address] [place] [address] Care Team Providers Care Sales Advisory Manager Name Role Phone Bin Camacho MD Primary Care Provider [phone] Encounter Details Date Type Department Care Team (Late st Contact Info) Description 02/27/2024 Orders Only [facility] [place] [address] [facility] [address] [place] [address] Jagjit Martinez MD [address] [place] [address] Social History Tobacco Use Types [...] Priority Date/Time Associated Diagnosis Comments HEMATOLOGY Routine 02/27/2024 documented in this encounter Results * (ABNORMAL) HEMATOLOGY (02/27/2024) Hemoglobin 10.9(L) 14.0 - 18.0 g/dL [facility] Hemoglobin x 3 32.7(L) 42.0 - 54.0 % [facility] 02/27/2024 02/28/2024 7:5 7 AM CDT Narrative [facility] - 02/28/2024 Unless otherwise specified, test(s) performed at: [facility], [address] [place] [address], [place] [address] CONCRETE FLOAT MAKER: Arnoldo Patricio M.D., Ph.D For any questions, please call customer service at FREQUENCY:OTHER Resulting Agency Comment Specimen source: Blood Jagjit Martinez MD LAB BLOOD ORDERABLES [facility] See order comments or contact performing lab Unknown, [place] documented in this encounter Visit Diagnoses Not on filedocumented in this encounter Care Teams Sales Advisory Manager Relationship Specialty [place] [address] [place] [address] PCP - General Family Medicine 09/08/20 documented as of this encounter
--- OUTSIDE RECORDS SUMMARY | 2024-03-25 08:28 | XMS_ITS | Encounter Summary ---
Author Organization [facility] [place] Address [address] [place] [address] Care Team Providers Care Web Analytics Developer Name Role Phone Bin Camacho MD Primary Care Provider Encounter Details Date Type Department Care Team (Late st Contact Info) Description 03/05/2024 Treatment [facility] [place] [address] [place] [address] Uyen Monsivais APRN-BUDGET EXAMINER [address] [facility] [address] [place] [address] Social History Tobacco Use Types Packs/Day Years [...] encounter Miscellaneous Notes * Dialysis Note - Uyen Monsivais APRN-CNP - 03/05/2024 9:20 AM CDT Date: Mar 05, 2024 Patient Name: Obi Mcdowell : 1955 Chart #: [id number] Sex: M This patient was personally seen for a complete visit as part of routine monthly dialysis care. A review of the dialysis treatment, blood pressure, estimated dry weight and recent lab values was made. These were discussed with the patient and staff as necessary. Treatment Data for 03/05/2024 started at:6:10 AM Dialyzer: 180NRe Optiflux Na: 137 mEq/L Bicarb: 31 mEq/L Dialysate: 2.0 K, 2.5 Ca, 1.0 Mg, 100 Dextrose (G2251) Dialysate/Machine Temp (prescribed): 37 C Dialysate/Machine Temp (actual): 36.9 C BFR (prescribed): 450 BFR (actual): 450 Prescribed time: 03:30 EDW: 104.6 kg Access Type: Active (In Use):AVFistula-Standard/Right Upper Arm Pre Dialysis Vitals (for 03/05/2024 6:02 AM ) Pre BP (sit): 166/85 Pre Wt: 107.2 kg Temp: 97.6 F Post Dialysis Vitals (for 03/03/2024 9:55 AM ) Post BP (sit): 117/72 Post Wt: 104.6 kg Current Dialysis Vitals (for 03/05/2024 8:59 AM ) BP (sit): 168/81 AP(-) / DIGITAL DESIGN ENGINEER: 239/182 Pulse: 72 Chairside data as of 03/05/2024 8:59 AM Last 3 Treatments 03/03/2024 02/29/2024 02/27/2024 EDW (kg) 104.8 104.8 104.8 Weight Pre (kg) 107.1 107.1 108.6 Weight Post (kg) 104.6 104.2 105.2 Dialytic Weight Loss (kg) -2.5 -2.9 -3.4 EDW Deviation (kg) -0.2 -0.6 0.4 BP Sit Pre 160/97 164/94 151/82 BP Sit Post 117/72 152/84 132/79 UF Rate (mL/kg/hr) 7 8 9 Prescribed BFR 450 450 450 Average Delivered BFR 450 460 410 Prescribed Treatment Time 03:30 03:30 03:30 Actual Treatment Time 03:29 03:34 03:35 Last 3 Values 02/11/2024 12/21/2023 12/14/2023 Access Flow 1532 1106 > 2000 Treatment Medication Orders Medication Sig Start Date End Date Heparin Sodium (Porcine) 1,000 Units/mL Systemic 3000 units IVP Every Treatment 01/02/2024 12/31/2024 Mircera 30 mcg IVP Every 4 weeks 02/20/2024 02/18/2025 PRE ASSEMBLY WIRER: Jagjit Martinez MD LOCATION: [phone] SCHEDULE: -- 1st Shift EDW: kg. DIALYZER: HD DURATION: NEEDLE SIZE: ANTICOAG: BATH: QB: ml/min QD: ml/min Subjective Tolerating dialysis well. Good appetite. Reports no trouble with access. 02/22/24: He is doing very well. Had c-scope done and it was clear. Has skin cancer removal scheduled in [place]. No symptoms on dialysis. BP controlled. Denies any new symptoms. AVF working well. Advanced Practitioner Subjective COPY LATHE OPERATOR 03/05/2024: Patient seen at chairside. Doing good. [...] with recent runs. Continue plan of care. COPY LATHE OPERATOR 01/28/2024: Seen while on dialysis. States that [...] as directed as directed. prn RenaPlex-D (vit b,f-lq-hqve-selen-vit d3-e) 800 mcg-12.5 mg-2,000 unit tablet Take [...] Anemia Assessment HEMOGLOBIN (G/DL) IN BLOOD g/dL 10.9 (02/27/24) 10.5 (02/20/24) 10.6 (02/13/24) 10.2 (02/06/24) 11.3 (01/30/24) PLATELETS 1000/mcL 254 (02/13/24) 259 (01/09/24) 229 [...] at goal. Intact PTH is at goal. Skull Splitter will adjust binders and vitamin D per [...] UF Transplant Status: Patient has evaluation underway. [facility] [place] He declines COVID vaccination. I notified him on 01/22/23 that COVID vaccine policy has changed to recommended rather than required and he is being worked up. Nearing completion of work-up to be listed, c-scope completed in February. Has to have a skin cancer removed over low abdomen next. Resuscitation Status Discussed with patient 05/23/22 who requested Full Code. Stable dialysis, no changes today. UYEN MONSIVAIS NP [ Signed And locked electronically On 03/05/2024 at 09:25:00 AM ] Transcribed: UYEN MONSIVAIS ( 03/05/2024 ) documented in this encounter Plan of Treatment Not on file documented as of this encounter Visit Diagnoses Not on filedocumented in this encounter Care Teams Web Analytics Developer Relationship Specialty [place] [address] [place] [address] PCP - General Family Medicine 09/08/20 documented as of this encounter
--- OUTSIDE RECORDS SUMMARY | 2024-03-25 08:28 | XMS_ITS | Encounter Summary ---
Author Organization [facility] Address [address] [facility] [address] [place] [address] Care Team Providers Care Scalper Operator Name Role Phone Bin Camacho MD Primary Care Provider [phone] Encounter Details Date Type Department Care Team (Late st Contact Info) Description 03/12/2024 Orders Only [facility] [address] [facility] [address] [place] [address] Jagjit Martinez MD [address] [place] [address] Social History Tobacco Use Types [...] Date/Time Associated Diagnosis Comments HD KINETICS Routine 03/12/2024 POST CHEMISTRY Routine 03/12/2024 HEMATOLOGY Routine 03/12/2024 CHEMISTRY Routine 03/12/2024 [facility] RESULTS Routine 03/12/2024 documented in this encounter Results * [facility] Results (03/12/2024) Pathologist [facility] PCR 78.86 [facility] Center spKt/V Gotch 1.56 [facility] eKdrt/V 1.32 [facility] eNPCR 1.15 [facility] eKt/V ([place]) 1.28 [facility] WSTDKT/V 2.4 [facility] eKt/V Gotch 1.32 [facility] [place] spKt/V (Daugirdas II) 1.49 [facility] nPCR_HD 1.30 [facility] 03/12/2024 03/12/2024 Ricki Ordering Provider LAB BLOOD ORDERABLE S Performing Organization Address [facility] Co de Phone Number [facility] Contact Performing lab Unknown, [place] * HD KINETICS (03/12/2024) Pathologist [facility] % Urea Reduction 72 65 - 80 % [facility] 03/12/2024 03/14/2024 2:4 9 PM CDT Narrative Resulting Agency Comment Specimen source: Plasma Jagjit Martinez MD LAB BLOOD ORDERABLES Performing Organization Address [facility] de Phone Number [facility] [employer] See order comments or contact performing lab Unknown, [place] * (ABNORMAL) POST CHEMISTRY (03/12/2024) Pathologist [facility] BUN Post Dialysis 20(H) 6 - 19 mg/dL [facility] 03/12/2024 03/14/2024 2:4 9 PM CDT Narrative [facility] - 03/14/2024 Unless otherwise specified, test(s) performed at: [facility], [address] [place] [address], [place] [address] VAN OWNER OPERATOR: Arnoldo Patricio M.D., Ph.D For any questions, please call customer service at FREQUENCY:MONTHLY Resulting Agency Comment Specimen source: Plasma Jagjit Martinez MD LAB BLOOD ORDERABLES [facility] See order comments or contact performing lab Unknown, [place] * (ABNORMAL) [facility] Chemistry (03/12/2024) BUN 72(H) 6 - 19 mg/dL [facility] [...] 03/12/2024 03/14/2024 2:1 3 PM CDT Narrative [facility] - 03/14/2024 Unless otherwise specified, test(s) performed at: [facility], [address] [place] [address], [place] [address] VAN OWNER OPERATOR: Arnoldo Patricio M.D., Ph.D For any questions, please call customer service at FREQUENCY:MONTHLY Resulting Agency Comment Specimen source: Serum Jagjit Martinez MD LAB BLOOD ORDERABLES Performing Organization Address [facility] Co de Phone Number [facility] See order comments or contact performing lab Unknown, [place] * (ABNORMAL) HEMATOLOGY (03/12/2024) WBC 6.73 4.80 - 10.80 1000/mcL [facility] RBC 3.38(L) 4.70 - 6.10 mill/mcL [facility] Hematocrit 34.8(L) 42.0 - 52.0 % [facility] MCV 103(H) 80 - 100 fl [facility] MCH 32.2(H) 27.0 - 31.0 pg [facility] MCHC 31.3 30.0 - 36.0 g/dL [facility] RDW 13.7 11.5 - 14.5 % [facility] Hemoglobin 10.9(L) 14.0 - 18.0 g/dL [facility] Hemoglobin x 3 32.7(L) 42.0 - 54.0 % [facility] Platelets 256 130 - 400 1000/mcL [facility] 03/12/2024 03/14/2024 3:1 2 PM CDT Narrative [facility] - 03/14/2024 Unless otherwise specified, test(s) performed at: [facility], [address] [place] [address], [place] [address] VAN OWNER OPERATOR: Arnoldo Patricio M.D., Ph.D For any questions, please call Exchangeryer service at FREQUENCY:MONTHLY Resulting Agency Comment Specimen source: Blood Jagjit Martinez MD LAB BLOOD ORDERABLES Performing Organization Address [facility] Co de Phone Number [facility] See order comments or contact performing lab Unknown, [place] documented in this encounter Visit Diagnoses Not on filedocumented in this encounter Care Teams Scalper Operator Relationship Specialty [place] [address] [facility] [place] [address] PCP - General Family Medicine 09/08/20 documented as of this encounter
--- OUTSIDE RECORDS SUMMARY | 2024-03-25 08:28 | XMS_ITS | Encounter Summary ---
Author Organization [facility] Address [address] [facility] [address] [place] [address] Care Team Providers Care Laboratory Analyst Name Role Phone Bin Camacho MD Primary Care Provider Encounter Details Date Type Department Care Team (Late st Contact Info) Description 03/19/2024 Orders Only [facility] [place] [address] [facility] [address] [place] [address] Jagjit Martinez MD [address] [place] [address] Social History Tobacco Use Types [...] Date/Time Associated Diagnosis Comments HEMATOLOGY Routine 03/19/2024 documented in this encounter Results * (ABNORMAL) HEMATOLOGY (03/19/2024) Hemoglobin 11.2(L) 14.0 - 18.0 g/dL [facility] Hemoglobin x 3 33.6(L) 42.0 - 54.0 % [facility] 03/19/2024 03/20/2024 3:4 7 PM CDT Narrative [facility] - 03/20/2024 Unless otherwise specified, test(s) performed at: [facility], [address] [place] [address], [place] [address] CRUSHER SETTER: Arnoldo Patricio M.D., Ph.D For any questions, please call customer service at FREQUENCY:OTHER Resulting Agency Comment Specimen source: Blood Jagjit Martinez MD LAB BLOOD ORDERABLES [facility] See order comments or contact performing lab Unknown, [place] documented in this encounter Visit Diagnoses Not on filedocumented in this encounter Care Teams Laboratory Analyst Relationship Specialty [place] [address] [place] [address] PCP - General Family Medicine 09/08/20 documented as of this encounter
--- OUTSIDE RECORDS SUMMARY | 2024-03-25 08:28 | XMS_ITS | Encounter Summary ---
Author Organization [facility] Address [address] [facility] [address] [place] [address] Care Team Providers Care Broadcast Technician Name Role Phone Bin Camacho MD Primary Care Provider [phone] Encounter Details Date Type Department Care Team (Late st Contact Info) Description 02/20/2024 Orders Only [facility] [place] [address] [facility] [address] [place] [address] Jagjit Martinez MD [address] [place] [address] Social History Tobacco Use Types [...] Priority Date/Time Associated Diagnosis Comments HEMATOLOGY Routine 02/20/2024 documented in this encounter Results * (ABNORMAL) HEMATOLOGY (02/20/2024) Hemoglobin 10.5(L) 14.0 - 18.0 g/dL [facility] Hemoglobin x 3 31.5(L) 42.0 - 54.0 % [facility] 02/20/2024 02/21/2024 7:3 1 AM CDT Narrative [facility] - 02/21/2024 Unless otherwise specified, test(s) performed at: [facility], [address] [place] [address], [place] [address] [place]: Arnoldo Patricio M.D., Ph.D For any questions, please call customer service at FREQUENCY:OTHER Resulting Agency Comment Specimen source: Blood Jagjit Martinez MD LAB BLOOD ORDERABLES [facility] See order comments or contact performing lab Unknown, [place] documented in this encounter Visit Diagnoses Not on filedocumented in this encounter Care Teams Broadcast Technician Relationship Specialty [place] [address] [place] [address] PCP - General Family Medicine 09/08/20 documented as of this encounter
--- OUTSIDE RECORDS SUMMARY | 2024-03-25 08:29 | XMS_ITS | Encounter Summary ---
Author Organization [facility] Address [address] [facility] [facility] [address] [place] [address] Care Team Providers Care Hearing And Speech Assistant Name Role Phone Bin Camacho MD Primary Care Provider [phone] Encounter Details Date Type Department Care Team (Late st Contact Info) Description 12/26/2023 Orders Only [facility] [place] [address] [facility] [address] [place] [address] Jagjit Martinez MD [address] [place] [address] Social History Tobacco Use Types [...] Priority Date/Time Associated Diagnosis Comments HEMATOLOGY Routine 12/26/2023 documented in this encounter Results * (ABNORMAL) HEMATOLOGY (12/26/2023) Hemoglobin 10.9(L) 14.0 - 18.0 g/dL [facility] Hemoglobin x 3 32.7(L) 42.0 - 54.0 % [facility] Reticulocyte Hemoglobin 33.0(H) 25.4 - 31.8 pg [facility] 12/26/2023 12/28/2023 10: 33 AM CDT Narrative [facility] - 12/28/2023 Unless otherwise specified, test(s) performed at: [facility], [address] [place] [address], [place] [address] COUNTY HEALTH OFFICER: Arnoldo Patricio M.D., Ph.D For any questions, please call customer service at FREQUENCY:OTHER Resulting Agency Comment Specimen source: Blood Jagjit Martinez MD LAB BLOOD ORDERABLES [facility] See order comments or contact performing lab Unknown, [place] documented in this encounter Visit Diagnoses Not on filedocumented in this encounter Care Teams Hearing And Speech Assistant Relationship Specialty [place] [address] [place], [place] [id number] PCP - General Family Medicine 09/08/20 documented as of this encounter
--- OUTSIDE RECORDS SUMMARY | 2024-03-25 08:29 | XMS_ITS | Encounter Summary ---
Author Organization [facility] Address [address] [place] [address] Care Team Providers Care Power Distributor Name Role Phone Bin Camacho MD Primary Care Provider Encounter Details Date Type Department Care Team (Late st Contact Info) Description 02/12/2024 Telephone [facility] [place] [address] [place] [address] Twyla Turk, RN [address] [place] [address] Social History Tobacco Use Types Packs/Day Years [...] as of this encounter Miscellaneous Notes * Telephone Encounter - Twyla Turk RN - 02/12/2024 11:54 AM CDT Pt called with questions regarding colonoscopy prep. Requested that he ask his dialysis nurse tomorrow. He voiced understanding. documented in this encounter Plan of Treatment Not on file documented as of this encounter Visit Diagnoses Not on filedocumented in this encounter Care Teams Power Distributor Relationship Specialty [place] [address] [place] [address] PCP - General Family Medicine 09/08/20 documented as of this encounter
--- OUTSIDE RECORDS SUMMARY | 2024-03-25 08:29 | XMS_ITS | Encounter Summary ---
Author Organization [facility] Address [address] [facility] [address] [address] [place] [address] Care Team Providers Care Reinsurance Analyst Name Role Phone Bin Camacho MD Primary Care Provider [phone] Encounter Details Date Type Department Care Team (Late st Contact Info) Description 01/09/2024 Orders Only [facility] [place] [address] [facility] [address] [place] [address] Jagjit Martinez MD [address] [place] [address] Social History Tobacco Use Types [...] Date/Time Associated Diagnosis Comments HD KINETICS Routine 01/09/2024 POST CHEMISTRY Routine 01/09/2024 HEMATOLOGY Routine 01/09/2024 CHEMISTRY Routine 01/09/2024 [facility] RESULTS Routine 01/09/2024 documented in this encounter Results * [facility] Results (01/09/2024) nPCR_HD 1.38 [facility] PCR 85.12 [facility] eNPCR 1.22 [facility] WSTDKT/V 2.4 [facility] eKt/V ([place]) 1.29 [facility] eKt/V Gotch 1.32 [facility] spKt/V (Daugirdas II) 1.51 [facility] eKdrt/V 1.32 [facility] spKt/V Gotch 1.56 [facility] ge [place] 01/09/2024 01/09/2024 Ordering Provider LAB BLOOD ORDERABLE S [facility] Contact Performing lab Unknown, [place] * HD KINETICS (01/09/2024) Pathologist [facility] % Urea Reduction 73 65 - 80 % [facility] 01/09/2024 01/10/2024 5:1 2 AM CDT Narrative [facility] - 01/10/2024 Unless otherwise specified, test(s) performed at: [facility], [address] [place] [address], [place] [address] ARMORED CAR GUARD AND DRIVER: Arnoldo Patricio M.D., Ph.D For any questions, please call customer service at FREQUENCY:MONTHLY Resulting Agency Comment Specimen source: Plasma Jagjit Martinez MD LAB BLOOD ORDERABLES [facility] See order comments or contact performing lab Unknown, [place] * (ABNORMAL) [facility] Chemistry (01/09/2024) Pathologist [facility] BUN 78(H) 6 - 19 mg/dL [facility] Creatinine 9.27(H) 0.60 - 1.30 mg/dL [facility] BUN/Creatinine Ratio 8.4(L) 10.0 - 20.0 [facility] Sodium 138 136 - 145 mEq/L [facility] Potassium 4.1 3.5 - 5.1 mEq/L [facility] Chloride 100 96 - 108 mEq/L [facility] Bicarbonate (CO2) 22 20 - 31 mEq/L [facility] Calcium 9.5 8.7 - 10.4 mg/dL [facility] Comment: Please note change in reference range. Corrected Calcium 9.4 8.7 - 10.4 mg/dL [facility] Comment: Corrected Calcium is not equivalent to measured Ionized Calcium. Phosphorus 4.7(H) 2.6 - 4.5 mg/dL [facility] Calcium Phosphorus Product 45 0 - 54 [facility] Calcium Phosporus Product, Cor 44 0 - 54 [facility] Total Protein 6.6 6.0 - 8.5 g/dL [facility] Albumin 4.1 3.5 - 5.2 g/dL [facility] Globulin, Total 2.5 2.0 - 4.0 g/dL [facility] A/G Ratio 1.6 1.0 - 2.0 [facility] Iron 169(H) 45 - 160 mcg/dL [facility] UIBC 104(L) 155 - 355 mcg/dL [facility] TIBC 273 185 - 515 mcg/dL [facility] Iron Saturation (TSat) 62(H) 20 - 55 % [facility] 01/09/2024 01/10/2024 8:4 8 AM CDT Narrative [facility] - 01/10/2024 Unless otherwise specified, test(s) performed at: [facility], [address] [place] [address], [place] [address] ARMORED CAR GUARD AND DRIVER: Arnoldo Patricio M.D., Ph.D For any questions, please call customer service at FREQUENCY:MONTHLY Resulting Agency Comment Specimen source: Serum Jagjit Martinez MD LAB BLOOD ORDERABLES [facility] See order comments or contact performing lab Unknown, [place] * (ABNORMAL) POST CHEMISTRY (01/09/2024) BUN Post Dialysis 21(H) 6 - 19 mg/dL [facility] 01/09/2024 01/10/2024 5:1 2 AM CDT Narrative [facility] 01/10/2024 Unless otherwise specified, test(s) performed at: [facility], [address] [place] [address] ARMORED CAR GUARD AND DRIVER: Arnoldo Patricio M.D., Ph.D For any questions, please call customer service at FREQUENCY:MONTHLY Resulting Agency Comment Specimen source: Plasma Jagjit Martinez MD LAB BLOOD ORDERABLES Performing Organization Address [facility]/ZIP Co de Phone Number [facility] See order comments or contact performing lab Unknown, [place] * (ABNORMAL) HEMATOLOGY (01/09/2024) WBC 9.03 4.80 - 10.80 1000/mcL [facility] RBC 3.20(L) 4.70 - 6.10 mill/mcL [facility] Hematocrit 30.8(L) 42.0 - 52.0 % [facility] MCV 96 80 - 100 fl [facility] MCH 32.7(H) 27.0 - 31.0 pg [facility] MCHC 34.0 30.0 - 36.0 g/dL [facility] RDW 12.3 11.5 - 14.5 % [facility] Hemoglobin 10.5(L) 14.0 - 18.0 g/dL [facility] Hemoglobin x 3 31.5(L) 42.0 - 54.0 % [facility] Platelets 259 130 - 400 1000/mcL [facility] 01/09/2024 01/10/2024 5:0 1 AM CDT Narrative [facility] - 01/10/2024 Unless otherwise specified, test(s) performed at: [facility], [address] [place] [address] ARMORED CAR GUARD AND DRIVER: Arnoldo Patricio M.D., Ph.D For any questions, please call customer service at FREQUENCY:MONTHLY Resulting Agency Comment Specimen source: Blood Jagjit Martinez MD LAB BLOOD ORDERABLES Performing Organization Address [facility]/ZIP Co de Phone Number [facility] See order comments or contact performing lab Unknown, [place] documented in this encounter Visit Diagnoses Not on filedocumented in this encounter Care Teams Reinsurance Analyst Relationship Specialty [place] [address] [place] [address] PCP - General Family Medicine 09/08/20 documented as of this encounter
--- OUTSIDE RECORDS SUMMARY | 2024-03-25 08:29 | XMS_ITS | Encounter Summary ---
Author Organization [facility] Address [address] [place] [address] Care Team Providers Care Conference Manager Name Role Phone Bin Camacho MD Primary Care Provider [phone] Encounter Details Date Type Department Care Team (Late st Contact Info) Description 12/19/2023 Orders Only [facility] [place] [address] [facility] [address] [place] [address] Jagjit Martinez MD [address] [place] [address] Social History Tobacco Use Types [...] Priority Date/Time Associated Diagnosis Comments HEMATOLOGY Routine 12/19/2023 documented in this encounter Results * (ABNORMAL) HEMATOLOGY (12/19/2023) Hemoglobin 11.0(L) 14.0 - 18.0 g/dL [facility] Hemoglobin x 3 33.0(L) 42.0 - 54.0 % [facility] Reticulocyte Hemoglobin 34.7(H) 25.4 - 31.8 pg [facility] 12/19/2023 12/20/2023 11: 09 AM CDT Narrative [facility] - 12/20/2023 Unless otherwise specified, test(s) performed at: [facility], [address] [place] [address], [place] [address] GLOBAL PROJECT MANAGER: Arnoldo Patricio M.D., Ph.D For any questions, please call customer service at FREQUENCY:OTHER Resulting Agency Comment Specimen source: Blood Jagjit Martinez MD LAB BLOOD ORDERABLES [facility] See order comments or contact performing lab Unknown, [place] documented in this encounter Visit Diagnoses Not on filedocumented in this encounter Care Teams Conference Manager Relationship Specialty [place] [address] [place], [place] [id number] PCP - General Family Medicine 09/08/20 documented as of this encounter
--- OUTSIDE RECORDS SUMMARY | 2024-03-25 08:29 | XMS_ITS | Encounter Summary ---
Author Organization [facility] Address [address] [facility] [address] [facility] [address] [place] [address] Care Team Providers Care Site Monitor Name Role Phone Bin Camacho MD Primary Care Provider [phone] Reason for Visit * Reason Comments Med Refill Encounter Details Date Type Department Care Team (Late st Contact Info) Description 07/16/2022 Refill [facility] [place] [address] [place] [address] Rosie Monsivais, ACCOUNT STRATEGIST-LIME KILN AND RECAUSTICIZING OPERATOR [address] [place] [address] Social History Tobacco Use Types [...] on filedocumented in this encounter Care Teams Site Monitor Relationship Specialty [place] [address] [place] [address] PCP - General Family Medicine 09/08/20 documented as of this encounter
--- OUTSIDE RECORDS SUMMARY | 2024-03-25 08:29 | XMS_ITS | Encounter Summary ---
Author Organization [facility] [place] [place] Address [address] [place] [address] Care Team Providers Care Radio Frequency Technician Name Role Phone Bin Camacho MD Primary Care Provider [phone] Encounter Details Date Type Department Care Team (Late st Contact Info) Description 01/28/2024 Treatment [facility] [place] [address] [place] [address] Uyen Monsivais, MOTION PICTURES CARTOONIST-FORM BLOCK MAKER [address] [facility] [address] [place] [address] Social History Tobacco Use Types [...] Dialysis Note - Uyen Monsivais APRN-CNP - 01/28/2024 8:58 AM CDT Date: Jan 28, 2024 Patient Name: bOi Mcdowell : 1955 Chart #: [id number] Sex: M This patient was personally seen for a complete visit as part of routine monthly dialysis care. A review of the dialysis treatment, blood pressure, estimated dry weight and recent lab values was made. These were discussed with the patient and staff as necessary. Treatment Data for 01/28/2024 started at:6:16 AM Dialyzer: 180NRe Optiflux Na: 137 mEq/L Bicarb: 31 mEq/L Dialysate: 3.0 K, 2.5 Ca, 1.0 Mg, 100 Dextrose (G3251) Dialysate/Machine Temp (prescribed): 37 C Dialysate/Machine Temp (actual): 38.1 C BFR (prescribed): 450 BFR (actual): 450 Prescribed time: 03:30 EDW: 105.5 kg Access Type: Active (In Use):AVFistula-Standard/Right Upper Arm Pre Dialysis Vitals (for 01/28/2024 6:06 AM ) Pre BP (sit): 128/65 Pre Wt: 109.4 kg Temp: 97.9 F Post Dialysis Vitals (for 01/25/2024 9:54 AM ) Post BP (sit): 126/73 Post Wt: 105.5 kg Current Dialysis Vitals (for 01/28/2024 9:01 AM ) BP (sit): 123/74 AP(-) / DIMENSIONAL INTEGRATION ENGINEER: 204/183 Pulse: 63 Chairside data as of 01/28/2024 9:01 AM Last 3 Treatments 01/25/2024 01/23/2024 01/21/2024 EDW (kg) 105.5 105.5 105.5 Weight Pre (kg) 109 108.9 109.5 Weight Post (kg) 105.5 105.6 106.3 Dialytic Weight Loss (kg) -3.5 -3.3 -3.2 EDW Deviation (kg) 0.0 0.1 0.8 BP Sit Pre 134/67 118/62 115/70 BP Sit Post 126/73 120/69 149/81 UF Rate (mL/kg/hr) 9 9 9 Prescribed BFR 450 450 450 Average Delivered BFR 450 450 440 Prescribed Treatment Time 03:30 03:30 03:30 Actual Treatment Time 03:31 03:30 03:34 Last 3 Values 12/21/2023 12/14/2023 12/10/2023 Access Flow 1106 > 2000 854 SMOKE INSPECTOR: Jagjit Martinez MD LOCATION: [phone] SCHEDULE: -F 1st Shift EDW: kg. DIALYZER: HD DURATION: NEEDLE SIZE: ANTICOAG: BATH: QB: ml/min QD: ml/min Subjective Tolerating dialysis well. Good appetite. Reports no trouble with access. 01/02/24: He feels he is doing really well currently. His labs were excellent this month. His BP hasbeen better and not having to sit and wait after dialysis. Very little orthostasis. To have c-scopeand stress test to continue work-up for Tx. He has no new symptoms. Advanced Practitioner Subjective PRODUCTION ASSOCIATE 01/28/2024: Seen while on dialysis. States that [...] Will continue to challenge EDW as tolerated. PRODUCTION ASSOCIATE 12/12/2023: Patient seen at chairside. Feeling well. [...] Regular rhythm. No murmur heard. Edema - Trace edema. Access - AVF lower arm in [...] as directed as directed. prn RenaPlex-D (vit b,v-ep-nbur-selen-vit d3-e) 800 mcg-12.5 mg-2,000 unit tablet Take [...] made. Treatment and Adequacy Assessment BUN mg/dL 78 (01/09/24) 77 (12/12/23) 59 (11/07/23) 80 (10/10/23) 73 (09/12/23) UREA NITROGEN (MG/DL) IN SER/PLAS - POST DIALYSIS mg/dL 21 (01/09/24) 20 (12/12/23) 16 (11/07/23) 22 (10/10/23) 3 (09/12/23) URR % 73 (01/09/24) 74 (12/12/23) 73 (11/07/23) 73 (10/10/23) 96 (09/12/23) spKt/V Gotch 1.56 (01/09/24) 1.66 (12/12/23) 1.56 (11/07/23) 1.59 (10/10/23) 4.75 (09/12/23) eKdrt/V 1.32 (01/09/24) 1.41 (12/12/23) 1.32 (11/07/23) 1.35 (10/10/23) 3.98 (09/12/23) spKt/V (Daugirdas II) 1.5100 (01/09/24) 1.5800 (12/12/23) 1.5100 (11/07/23) 1.5200 (10/10/23) 4.4800 (09/12/23) Dialysis is adequate. Achieves prescribed time - Yes Achieves prescribed frequency - Yes Continue current prescription. Vascular Access Assessment Type of access: FistulaRUE lower arm Anemia Assessment HEMOGLOBIN (G/DL) IN BLOOD g/dL 11.4 (01/23/24) 10.8 (01/16/24) 10.5 (01/09/24) 10.2 (01/02/24) 10.9 (12/26/23) PLATELETS 1000/mcL 259 (01/09/24) 229 (12/12/23) 283 (11/07/23) 290 (10/10/23) 312 (09/12/23) FERRITIN ng/mL 689 (11/07/23) 581 (08/15/23) 477 (05/09/23) 365 (04/11/23) TRANSFERRIN SAT% % 62 (01/09/24) 60 (12/12/23) 58 (11/07/23) 97 (10/10/23) 68 (09/12/23) Hemoglobin is above goal. Iron Saturation is at goal. Ferritin is at goal. Will adjust ELIANA and intravenous iron per protocol. Nutritional and Metabolic Assessment ALBUMIN (G/DL) g/dL 4.1 (01/09/24) 4.1 (12/12/23) 4.3 (11/07/23) 4.4 (10/10/23) 4.4 (09/12/23) Sodium mEq/L 138 (01/09/24) 139 (12/12/23) 138 (11/07/23) 138 (10/10/23) 136 (09/12/23) POTASSIUM (MMOL/L) IN SER/PLAS mEq/L 4.1 (01/09/24) 4.5 (12/12/23) 4.3 (11/07/23) 4.6 (10/10/23) 5.1 (09/12/23) BICARBONATE (CO2) mEq/L 22 (01/09/24) 22 (12/12/23) 25 (11/07/23) 25 (10/10/23) 21 (09/12/23) 25 OH VITAMIN D ng/mL 27.7 (11/07/23) 30.2 (05/09/23) Albumin is at goal. Encourage high-biological value protein intake. Potassium is at goal. Bicarbonate is at goal. Continue same bicarbonate in dialysate. Bone and Mineral Metabolism Assessment CALCIUM mg/dL 9.5 (01/09/24) 9.5 (12/12/23) 9.9 (11/07/23) 9.5 (10/10/23) 10.0 (09/19/23) CALCIUM (MG/DL) CORRECTED FOR ALBUMIN IN SER/PLAS mg/dL 9.4 (01/09/24) 9.4 (12/12/23) 9.7 (11/07/23) 9.2 (10/10/23) 9.8 (09/12/23) PHOSPHATE (MG/DL) IN SER/PLAS mg/dL 4.7 (01/09/24) 4.4 (12/12/23) 4.6 (11/28/23) 6.4 (11/07/23) 4.9 (10/24/23) CALCIUM PHOSPHORUS PRODUCT, COR 44 (01/09/24) 41 (12/12/23) 62 (11/07/23) 62 (10/10/23) 62 (09/12/23) IPTH pg/mL 596 (11/07/23) 681 (10/10/23) 796 (09/19/23) 694 (09/12/23) 590 (08/15/23) Corrected Calcium is at goal. Phosphorous is at goal. Intact PTH is at goal. Malware Analyst will adjust binders and vitamin D per protocol and continue to provide dietary education. Continue Sensipar Velphoro increased to 3 with meals Cardiovascular Assessment Blood pressures reviewed and are acceptable. Intradialytic weight gains are appropriate. Estimated dry weight is appropriate. Continue same cardiovascular medications. Discussed working on lower fluid gains, especially on weekends. He is holding all am BP meds on dialysis days and BP improved post-HD with this (was having symptomatic hypotension, now transient mild orthostasis) Transplant Status: Patient has evaluation underway. Center - [place] He declines COVID vaccination. I notified him on 01/22/23 that COVID vaccine policy has changed to recommended rather than required and he is being worked up. Nearing completion of work-up to be listed Resuscitation Status Discussed with patient 05/23/22 who requested Full Code. Stable dialysis, no changes today. Continue work-up for Tx Awaiting Dermatology biopsy results UYEN MONSIVAIS NP [ Signed And locked electronically On 01/28/2024 at 09:24:35 AM ] Transcribed: UYEN MONSIVAIS ( 01/28/2024 ) documented in this encounter Plan of Treatment Not on file documented as of this encounter Visit Diagnoses Not on filedocumented in this encounter Care Teams Radio Frequency Technician Relationship Specialty [place] [address] [place] [address] PCP - General Family Medicine 09/08/20 documented as of this encounter
--- OUTSIDE RECORDS SUMMARY | 2024-03-25 08:29 | XMS_ITS | Encounter Summary ---
Author Organization [facility] Address [address] [facility] [address] [place] [address] Care Team Providers Care Design Drafter Chief Name Role Phone Bin Camacho MD Primary Care Provider [phone] Reason for Visit * Reason Comments Med Refill Encounter Details Date Type Department Care Team (Late st Contact Info) Description 02/16/2022 Refill [facility] [place] [address] [place] [id number] Navi Smith MD [address] [place] [address] Social History Tobacco Use Types Packs/Day Years Used Date Smoking Tobacco: Former Cigarettes Q uit: 1989 Smokeless Tobacco: Never Alcohol Use Standard Drinks/Week Comments Not Currently 0 (1 standard drink = 0.6 oz pur e alcohol) quit 30 yrs ago Sex and Gender Information Value Date Recorded Sex Assigned at Not on file Gender Identity Not on file Sexual Orientation Not on file COVID-19 Exposure Response Date Recorded In the last 10 days, have yo u been in contact with someone who was confirmed or suspected to have Coronavirus/COVID-19? No / Unsure 01/31/2022 2:41 PM CDT documented as of this encounter Miscellaneous Notes * Telephone Encounter - Twyla Turk RN - 02/17/2022 10:42 AM CDT Omeprazole shows interaction with Plavix. documented in this encounter Plan of Treatment Not on file documented as of this encounter Visit Diagnoses Not on filedocumented in this encounter Care Teams Design Drafter Chief Relationship Specialty [place] [address] [place] [address] PCP - General Family Medicine 09/08/20 documented as of this encounter
--- OUTSIDE RECORDS SUMMARY | 2024-03-25 08:29 | XMS_ITS | Encounter Summary ---
Author Organization [facility] Address [address] [facility] [address] [place] [address] Care Team Providers Care Vice President Of Procurement Name Role Phone Bin Camacho MD Primary Care Provider [phone] Encounter Details Date Type Department Care Team (Late st Contact Info) Description 02/06/2024 Orders Only [facility] [place] [address] [facility] [address] [place] [address] Jagjit Martinez MD [address] [place] [address] Social History Tobacco Use Types [...] Priority Date/Time Associated Diagnosis Comments HEMATOLOGY Routine 02/06/2024 documented in this encounter Results * (ABNORMAL) HEMATOLOGY (02/06/2024) Hemoglobin 10.2(L) 14.0 - 18.0 g/dL [facility] Hemoglobin x 3 30.6(L) 42.0 - 54.0 % [facility] 02/06/2024 02/07/2024 8:5 8 AM CDT Narrative [facility] - 02/07/2024 Unless otherwise specified, test(s) performed at: [facility], [address] [place] [address], [place] [address] CASINO CASHIER MANAGER: Arnoldo Patricio M.D., Ph.D For any questions, please call customer service at FREQUENCY:OTHER Resulting Agency Comment Specimen source: Blood Jagjit Martinez MD LAB BLOOD ORDERABLES [facility] See order comments or contact performing lab Unknown, [place] documented in this encounter Visit Diagnoses Not on filedocumented in this encounter Care Teams Vice President Of Procurement Relationship Specialty [place] [address] [place] [address] PCP - General Family Medicine 09/08/20 documented as of this encounter
--- OUTSIDE RECORDS SUMMARY | 2024-03-25 08:29 | XMS_ITS | Encounter Summary ---
Author Organization [facility] Address [address] [facility] [address] [place] [address] Care Team Providers Care Garbage Truck Helper Name Role Phone Bin Camacho MD Primary Care Provider [phone] Encounter Details Date Type Department Care Team (Late st Contact Info) Description 01/02/2024 Orders Only [facility] [place] [address] [facility] [address] [place] [address] Jagjit Martinez MD [address] [place] [address] Social History Tobacco Use Types [...] Priority Date/Time Associated Diagnosis Comments HEMATOLOGY Routine 01/02/2024 documented in this encounter Results * (ABNORMAL) HEMATOLOGY (01/02/2024) Hemoglobin 10.2(L) 14.0 - 18.0 g/dL [facility] Hemoglobin x 3 30.6(L) 42.0 - 54.0 % [facility] 01/02/2024 01/03/2024 11: 19 AM CDT Narrative [facility] - 01/03/2024 Unless otherwise specified, test(s) performed at: [facility], [address] [place] [address], [place] [address] EVALUATOR TRANSFER STUDENTS: Arnoldo Patricio M.D., Ph.D For any questions, please call customer service at FREQUENCY:OTHER Resulting Agency Comment Specimen source: Blood Jagjit Martinez MD LAB BLOOD ORDERABLES [facility] See order comments or contact performing lab Unknown, [place] documented in this encounter Visit Diagnoses Not on filedocumented in this encounter Care Teams Garbage Truck Helper Relationship Specialty [place] [address] [place] [address] PCP - General Family Medicine 09/08/20 documented as of this encounter
--- OUTSIDE RECORDS SUMMARY | 2024-03-25 08:29 | XMS_ITS | Clinical Summary ---
Author Organization [employer] [facility] Address [place], [place] [address] Care Team Providers Care Rehabilitation Teacher Name Role Phone Aram Samuel MD Unavailable + Navi Smith MD Unavailable [phone] Sapna Mccauley NP Primary Care Provider Omayra vailable Allergies No known active allergies Medications Medication Sig Dispensed Refills Start Date End Date Status hydrALAZINE (APRESOLINE) 100 mg tabletIndications:HTN (hypertension) Take 0.5 Tablets (50 mg) by mouth three times daily. 09/18/2023 Active sucroferric oxyhydroxide (Velphoro) 500 mg chew chewable tablet Chew 1 Tablet (500 mg) by mouth three times daily with meals. Pt reports he takes 3 tablets with breakfast, 2 tablets with lunch and 2 tablets with dinner 09/18/2023 Active cinacalcet (SENSIPAR) 30 mg tablet Take 1 Tablet (30 mg) by mouth once daily with a meal. 09/18/2023 Active cloNIDine HCL (CATAPRES) 0.2 mg tablet Take 0.2 mg by mouth two times daily. Takes 1/2 tablet twice a day per Nephrology 09/18/2023 Active omeprazole (PRILOSEC) 20 mg Delayed-Release capsule Take 1 Capsule (20 mg) by mouth once daily before a meal. 09/18/2023 Active rivaroxaban (Xarelto) 10 mg tablet Take 1 Tablet (10 mg) by mouth once daily with evening meal. 09/18/2023 Active metoprolol tartrate (LOPRESSOR) 50 mg tablet Take 1 Tablet (50 mg) by mouth two times daily. 09/18/2023 Active NIFEdipine (PROCARDIA XL) 60 mg extended-release tablet Take 60 mg by mouth two times daily. Per Nephrology Active Active Problems Problem Noted Date Diagnosed Date History of prostate cancer 09/18/2023 Pulmonary nodules 09/18/2023 PAD (peripheral artery disease) 09/18/2023 Colon cancer screening 09/18/2023 Atrial fibrillation with normal ventricular rate 09/18/2023 ESRD (end stage renal disease) on dialysis 05/11 NILSON (obstructive sleep apnea) 05/11/2023 Morbid obesity due to excess calories 05/11/2023 SOB (shortness of breath) 05/11/2023 Arterial occlusion, lower extremity 09/30/2020 Hypertensive urgency 08/13/2020 HTN (hypertension) Prostate CA Pelvic mass Hyperlipidemia CKD (chronic kidney disease) stage 4, GFR 15-29 ml/min Encounters Date Type Department Care Team Description 02/19/2024 Lab Requisition [facility] [phone] Lulu Rose MD 02/08/2024 Telephone [facility] Providers [address] [address] Gaby Junior, decorating machine operator Eval from Last 3 Months Family History Medical History Relation Name Comments Coronary artery disease Father Cancer-breast Mother Relation Name Status Comments Father Mother Social History Tobacco Use Types Packs/Day Years Used Date Smoking Tobacco: Former Smokeless Tobacco: Never Alcohol Use Standard Drinks/Week Comments Never 0 (1 standard drink = 0.6 oz pur e alcohol) Social Connections Answer Date Recorded Frequency of Communication with Friends and Fami ly Not on file 05/11/2023 Sex and Gender Information Value Date Recorded Sex Assigned at Not on file Gender Identity Not on file Sexual Orientation Not on file Obstetrics History Last Filed Vital Signs Vital Sign Reading Time Taken Comments Blood Pressure 116/64 10/08/2023 1:00 PM CDT Pulse 79 10/08/2023 1:00 PM CDT Temperature 37 ??C (98.6 ??F) 10/08/2023 1:00 PM CDT Respiratory Rate 16 10/08/2023 1:00 PM CDT Oxygen Saturation 95% 10/08/2023 1:00 PM CDT Inhaled Oxygen Concentration - - Weight 105.2 kg (232 lb) 10/08/2023 1:00 PM CDT Height 188 cm (6' 2) 10/08/2023 1:00 PM CDT Body Mass Index 29.79 10/08/2023 1:00 PM CDT Plan of Treatment Health Maintenance Due Date Last Done Comments Pneumococcal series for age 65+ (1 of 2 - PCV) 1960 Tdap 1965 Depression screening for age 12+ 1966 Tetanus booster 1974 Colonoscopy through age 75 1999 Zoster (shingles) series for age 50+ (1 of 2) 2004 AAA screening age 65-74 2019 COVID-19 vaccine series (1 - 2022-24 season) 2024 Influenza for age 65+ 03/09/2024 BMI (ht and wt on same day) for age 18+ 10/07/2024 10/08/2023, 09/18/2023, 11/01/2020 Lipids for age 45-75 08/14/2025 08/14/2020 Hepatitis C screening for age 18-79 Completed 09/17, 05/11/2021 Procedures Procedure Name Priority Date/Time Associated Diagnosis Comments LAB TRACKING EVENT Routine 02/19/2024 9: 05 AM CDT PATH TISSUE EXAM Routine 02/19/2024 9:05 AM CDT ANTI HCV Today 09/18/2023 10:56 AM CDT Pre-transplant evaluation for ESRD (end stage renal disease) LIPID PANEL Early AM 08/14/2020 6:25 AM GUIDE DELEGATE from Last 3 Months or Most Recently Relevant to Health Maintenance Results * LAB TRACKING EVENT (02/19/2024 9:05 AM CDT) Other (Other) Client Collect / Unknown 02/19/2024 9:05 AM CDT 02/19/2024 10:20 PM CDT Lulu Rose MD LAB BILL ONLY [facility] [address] [place] [address], * PATH TISSUE EXAM (02/19/2024 9:05 AM CDT) Case Report Pathology Report ?Case: [id number] ? Authorizing Provider: ??Lulu Rose MD ??Collected: ? 02/19/2024 0905 ? Ordering Location: ? [facility] ?Received: ?02/20/2024 1247 ? Pathologist: ? Jarod Tang MD ? Specimen: ?Colon Biopsy ? 02/21/2024 9:07 AM CDT [facility] Final Diagnosis A) COLON, RANDOM, BIOPSY: 1. Melanosis coli, otherwise normal colonic mucosa (see comment) 2. Negative for microscopic, active, and chronic colitis 02/21/2024 9:07 AM CDT [facility] Comment A) The presence of melanosis coli suggests increased epithelial cell turnover. While not specific, melanosis can be seen in patients chronically using laxatives, particularly anthraquinone derivatives. 02/21/2024 9:[address] [facility] Clinical Information Mr. Mcdowell is a 68 y.o. who undergoes screening colonoscopy, this is the patient's first colonoscopy. 02/21/2024 9:[address] [facility] Gross Description A) Received in formalin are 11 saldivar mucosal fragments ranging from 2 mm to 5 mm in greatest dimension, which are entirely submitted in one cassette. It is labeled with the patient's name and designated random colon. Claire M Noon 02/20/2024 3:22 PM 02/21/2024 9:[address] [facility] Microscopic Description The final diagnosis is based on microscopic examination of appropriate sections of all specimens. 02/21/2024 9:[address] [facility] Additional Information Interpreted at [facility] Laboratory - [address] [facility] [address] [facility] [address] [address] 02/21/2024 9:[address] [facility] Other (Colon Biopsy) 02/19/2024 9:05 AM CDT 02/20/2024 12:47 PM CDT Lulu Rose MD PATHOLOGY/CYTOLO GY [facility] [address] [place] [address], * ANTI HCV (09/18/2023 10:56 AM CDT) HEPATITIS C ANTIBODY Non-Reacti ve Non-React chloe 09/18/2023 11:45 AM CDT [facility] Comment:Please note, per www .CDC.gov: If a patient is known to be at high risk of HCV infection, or is symptomatic, and the physician's suspicion of HCV infection is high, HCV RNA testing is often employed and is of diagnostic value, even after an initial negative anti-HCV test result. Blood BLOOD SPECIMEN / Unknown Venipuncture / Unknown 09/18/2023 10:56 AM CDT 09/18/2023 11:04 AM CDT Dhruv Gomez MD [facility] [address] [place] [address], [place] * (ABNORMAL) Lipid Panel AM (08/14/2020 6:25 AM GUIDE DELEGATE) CHOLESTEROL,TOTAL 241(H) 100 - 199 mg/dL 08/14/2020 6:55 AM GUIDE DELEGATE [facility] TRIGLYCERIDES 236(H) <150 mg/dL 08/14/2020 6:55 AM GUIDE DELEGATE [facility] HDL CHOLESTEROL 29(L) >40 mg/dL 6:55 AM GUIDE DELEGATE [facility] NON-HDL CHOLESTEROL 212(H) <145 mg/dl 08/14/2020 6:55 AM GUIDE DELEGATE [facility] CHOL/HDL RATIO 8.31(H) <4.50 08/14/2020 6:55 AM GUIDE DELEGATE [facility] LDL CHOLESTEROL 165(H) <=130 mg/dL 08/14/2020 6:55 AM GUIDE DELEGATE [facility] PROVIDER ORDERED STATUS RANDOM 08/14/2020 6:55 AM GUIDE DELEGATE [facility] Blood BLOOD SPECIMEN / Unknown Venipuncture / Unknown 08/14/2020 6:25 AM GUIDE DELEGATE 08/14/2020 6:31 AM GUIDE DELEGATE Obi Marquez MD CHEMISTRY [facility] [address] [place] [address], [place] from Last 3 Months or Most Recently Relevant to Health Maintenance Advance Directives * Full Code (Latest Code Status on File) Date Activated Date Inactivated Comments 09/28/2020 9:35 AM 10/06/2020 6:15 PM Question Answer Comments Code Status Discussion: Not Discussed * Full Code Date Activated Date Inactivated Comments 09/28/2020 9:35 AM 09/28/2020 9:35 AM Question Answer Comments Code Status Discussion: Not Discussed * Full Code Date Activated Date Inactivated Comments 08/12/2020 7:14 AM 08/15/2020 3:57 PM Question Answer Comments Code Status Discussion: Not Discussed Care Teams Rehabilitation Teacher Relationship Specialty Start Date End Date Sapna Mccauley NP [address] [place] [address] PCP - General Emergency Medicine 05/11/23 Aram Samuel MD [address] [place] [address] Surgery - Urology 05/21/20 Navi Smith MD [address] [place] [address] Nephrology 08/17/20
--- OUTSIDE RECORDS SUMMARY | 2024-03-25 08:29 | XMS_ITS | Encounter Summary ---
Author Organization [facility] Address [address] [place] [address] Care Team Providers Care Business Insurance Agent Name Role Phone Bin Camacho MD Primary Care Provider Encounter Details Date Type Department Care Team (Late st Contact Info) Description 01/02/2024 Treatment [facility] [place] [address] [place] [address] Jagjit Martinez MD [address] [place] [id number] Social History Tobacco Use Types Packs/Day Years [...] Dialysis Note - Jagjit Martinez MD - 01/02/2024 9:12 AM CDT Date: Jan 02, 2024 Patient Name: Obi Mcdowell : 1955 Chart #: [id number] Sex: M This patient was personally seen for a complete visit as part of routine monthly dialysis care. A review of the dialysis treatment, blood pressure, estimated dry weight and recent lab values was made. These were discussed with the patient and staff as necessary. Treatment Data for 01/02/2024 started at:6:17 AM Dialyzer: Na: 137 mEq/L Bicarb: 31 mEq/L Dialysate: Dialysate/Machine Temp (prescribed): 37 C Dialysate/Machine Temp (actual): n/a BFR (prescribed): 450 BFR (actual): 450 Prescribed time: 03:30 EDW: 104.5 kg Access Type: Active (In Use):AVFistula-Standard/Right Upper Arm Pre Dialysis Vitals (for 01/02/2024 6:07 AM ) Pre BP (sit): 154/79 Pre Wt: 108.1 kg Temp: 97.6 F Post Dialysis Vitals (for 12/31/2023 10:03 AM ) Post BP (sit): 127/71 Post Wt: 105.2 kg Current Dialysis Vitals (for 01/02/2024 9:01 AM ) BP (sit): 122/68 AP(-) / LUMBER MARKER: 235/182 Pulse: 63 Chairside data as of 01/02/2024 9:01 AM Last 3 Treatments 12/31/2023 12/28/2023 12/26/2023 EDW (kg) 104.5 104.5 104.5 Weight Pre (kg) 108.8 107.5 108.2 Weight Post (kg) 105.2 104.6 104.9 Dialytic Weight Loss (kg) -3.6 -2.9 -3.3 EDW Deviation (kg) 0.7 0.1 0.4 BP Sit Pre 139/74 161/84 140/73 BP Sit Post 127/71 127/74 131/71 UF Rate (mL/kg/hr) 10 8 9 Prescribed BFR 450 450 450 Average Delivered BFR 450 450 450 Prescribed Treatment Time 03:30 03:30 03:30 Actual Treatment Time 03:32 03:32 03:30 Last 3 Values 12/21/2023 12/14/2023 12/10/2023 Access Flow 1106 > 2000 854 SUPERVISOR SILVERING DEPARTMENT: Jagjit Martinez MD LOCATION: [facility] [phone] SCHEDULE: -- 1st Shift EDW: kg. DIALYZER: [...] has no new symptoms. Advanced Practitioner Subjective SENIOR NETWORK SECURITY ENGINEER 12/12/2023: Patient seen at chairside. Feeling well. Has a few things to complete for transplant listing. Denies SOB, chest pain, cramping or dizziness. AVF has been functional; no reported issues from staff. BP stable. Leaving close to EDW with recent runs. Continue plan of care. SENIOR NETWORK SECURITY ENGINEER 12/07/2023: Seen while on dialysis. Doing well. Denies SOB, chest pain, cramping or dizziness. AVF in use and functional, no reported staff issues. BP stable on treatment but has significant drop when he goes from sitting to standing. Achieving EDW. Will continue to challenge EDW as tolerated. [...] by mouth twice a day as directed hydralazine 50 mg tablet Take 1 tablet by mouth three times a day as directed 11/07/2023 metoprolol tartrate 50 mg tablet Take 1 tablet by mouth twice a day as directed. takes before dialysis MWF nifedipine 60 mg tablet extended release Take 1 tablet by mouth twice a day as directed omeprazole 20 mg tablet,delayed release (DR/EC) Take 1 tablet by mouth as directed as directed. prn Sensipar (cinacalcet) 30 mg tablet Take 1 [...] made. Treatment and Adequacy Assessment BUN mg/dL 77 (12/12/23) 59 (11/07/23) 80 (10/10/23) 73 (09/12/23) 61 (08/15/23) UREA NITROGEN (MG/DL) IN SER/PLAS - POST DIALYSIS mg/dL 20 (12/12/23) 16 (11/07/23) 22 (10/10/23) 3 (09/12/23) 16 (08/15/23) URR % 74 (12/12/23) 73 (11/07/23) 73 (10/10/23) 96 (09/12/23) 74 (08/15/23) spKt/V Gotch 1.66 (12/12/23) 1.56 (11/07/23) 1.59 (10/10/23) 4.75 (09/12/23) 1.58 (08/15/23) eKdrt/V 1.41 (12/12/23) 1.32 (11/07/23) 1.35 (10/10/23) 3.98 (09/12/23) 1.34 (08/15/23) spKt/V (Daugirdas II) 1.5800 (12/12/23) 1.5100 (11/07/23) 1.5200 (10/10/23) 4.4800 (09/12/23) 1.5300 (08/15/23) Dialysis is adequate. Achieves prescribed time - Yes Achieves prescribed frequency - Yes Continue current prescription. Vascular Access Assessment Type of access: FistulaRUE lower arm Anemia Assessment HEMOGLOBIN (G/DL) IN BLOOD g/dL 10.9 (12/26/23) 11.0 (12/19/23) 10.2 (12/12/23) 10.8 (12/05/23) 10.7 (11/28/23) PLATELETS 1000/mcL 229 (12/12/23) 283 (11/07/23) 290 (10/10/23) 312 (09/12/23) 314 (08/15/23) FERRITIN ng/mL 689 (11/07/23) 581 (08/15/23) 477 (05/09/23) 365 (04/11/23) 182 (01/10/23) TRANSFERRIN SAT% % 60 (12/12/23) 58 (11/07/23) 97 (10/10/23) 68 (09/12/23) 35 (08/15/23) Hemoglobin is at goal. Iron Saturation is at goal. Ferritin is at goal. Will adjust ELIANA and intravenous iron per protocol. Nutritional and Metabolic Assessment ALBUMIN (G/DL) g/dL 4.1 (12/12/23) 4.3 (11/07/23) 4.4 (10/10/23) 4.4 (09/12/23) 4.3 (08/15/23) Sodium mEq/L 139 (12/12/23) 138 (11/07/23) 138 (10/10/23) 136 (09/12/23) 137 (08/15/23) POTASSIUM (MMOL/L) IN SER/PLAS mEq/L 4.5 (12/12/23) 4.3 (11/07/23) 4.6 (10/10/23) 5.1 (09/12/23) 4.5 (08/15/23) BICARBONATE (CO2) mEq/L 22 (12/12/23) 25 (11/07/23) 25 (10/10/23) 21 (09/12/23) 24 (08/15/23) 25 OH VITAMIN D ng/mL 27.7 (11/07/23) 30.2 (05/09/23) Albumin is at goal. Encourage high-biological value protein intake. Potassium is at goal. Bicarbonate is at goal. Continue same bicarbonate in dialysate. Bone and Mineral Metabolism Assessment CALCIUM mg/dL 9.5 (12/12/23) 9.9 (11/07/23) 9.5 (10/10/23) 10.0 (09/19/23) 10.1 (09/12/23) CALCIUM (MG/DL) CORRECTED FOR ALBUMIN IN SER/PLAS mg/dL 9.4 (12/12/23) 9.7 (11/07/23) 9.2 (10/10/23) 9.8 (09/12/23) 9.9 (08/15/23) PHOSPHATE (MG/DL) IN SER/PLAS mg/dL 4.4 (12/12/23) 4.6 (11/28/23) 6.4 (11/07/23) 4.9 (10/24/23) 6.7 (10/10/23) CALCIUM PHOSPHORUS PRODUCT, COR 41 (12/12/23) 62 (11/07/23) 62 (10/10/23) 62 (09/12/23) 50 (08/15/23) IPTH pg/mL 596 (11/07/23) 681 (10/10/23) 796 (09/19/23) 694 (09/12/23) 590 (08/15/23) Corrected Calcium is at goal. Phosphorous is at goal. Intact PTH is at goal. Investment Advisor will adjust binders and vitamin D per [...] orthostasis) Transplant Status: Patient has evaluation underway. [place] [facility] [place] He declines COVID vaccination. I notified him on 01/22/23 that COVID vaccine policy has changed to recommended rather than required and he is being worked up. Nearing completion of work-up to be listed Resuscitation Status Discussed with patient 05/23/22 who requested Full Code. Stable dialysis, no changes today. Labs excellent this month, congratulated on this hypertensive cod - bp controlled, continue current medications, reaching EDW Jagjit Martinez MD [ Signed And locked electronically On 01/02/2024 at 09:17:24 AM ] Transcribed: Jagjit Martinez ( 01/02/2024 ) documented in this encounter Plan of Treatment Not on file documented as of this encounter Visit Diagnoses Not on filedocumented in this encounter Care Teams Business Insurance Agent Relationship Specialty [place] [address] [place] [address] PCP - General Family Medicine 09/08/20 documented as of this encounter
--- OUTSIDE RECORDS SUMMARY | 2024-03-25 08:29 | XMS_ITS | Encounter Summary ---
Author Organization [facility] Address [address] [facility] [address] [place] [address] Care Team Providers Care Basket Sorter Name Role Phone Bin Camacho MD Primary Care Provider Encounter Details Date Type Department Care Team (Late st Contact Info) Description 01/16/2024 Orders Only [facility] [place] [address] [facility] [address] [place] [address] Jagjit Martinez MD [address] [place] [address] Social History Tobacco Use Types [...] Priority Date/Time Associated Diagnosis Comments HEMATOLOGY Routine 01/16/2024 documented in this encounter Results * (ABNORMAL) HEMATOLOGY (01/16/2024) Hemoglobin 10.8(L) 14.0 - 18.0 g/dL [facility] Hemoglobin x 3 32.4(L) 42.0 - 54.0 % [facility] Reticulocyte Hemoglobin 34.2(H) 25.4 - 31.8 pg [facility] 01/16/2024 01/17/2024 5:3 3 PM CDT Narrative [facility] - 01/17/2024 Unless otherwise specified, test(s) performed at: [facility], [address] [place] [address], [place] [address] WHEEL CLEANER: Arnoldo Patricio M.D., Ph.D For any questions, please call customer service at FREQUENCY:OTHER Resulting Agency Comment Specimen source: Blood Jagjit Martinez MD LAB BLOOD ORDERABLES [facility] See order comments or contact performing lab Unknown, [place] documented in this encounter Visit Diagnoses Not on filedocumented in this encounter Care Teams Basket Sorter Relationship Specialty [place] [address] [place] [address] PCP - General Family Medicine 09/08/20 documented as of this encounter
--- OUTSIDE RECORDS SUMMARY | 2024-03-25 08:29 | XMS_ITS | Encounter Summary ---
Author Organization [facility] Address [address] [facility] [address] [place] [address] Care Team Providers Care Qa Reviewer Name Role Phone Bin Camacho MD Primary Care Provider [phone] Encounter Details Date Type Department Care Team (Late st Contact Info) Description 01/23/2024 Orders Only [facility] [place] [address] [facility] [address] [place] [address] Jagjit Martinez MD [address] [place] [address] Social History Tobacco Use Types [...] Priority Date/Time Associated Diagnosis Comments HEMATOLOGY Routine 01/23/2024 documented in this encounter Results * (ABNORMAL) HEMATOLOGY (01/23/2024) Hemoglobin 11.4(L) 14.0 - 18.0 g/dL [facility] Hemoglobin x 3 34.2(L) 42.0 - 54.0 % [facility] 01/23/2024 01/24/2024 9:1 0 AM CDT Narrative [facility] - 01/24/2024 Unless otherwise specified, test(s) performed at: [facility], [address] [place] [address], [place] [address] CARDIAC MONITOR TECHNICIAN: Arnoldo Patricio M.D., Ph.D For any questions, please call customer service at FREQUENCY:OTHER Resulting Agency Comment Specimen source: Blood Jagjit Martinez MD LAB BLOOD ORDERABLES [facility] See order comments or contact performing lab Unknown, [place] documented in this encounter Visit Diagnoses Not on filedocumented in this encounter Care Teams Qa Reviewer Relationship Specialty [place] [address] [place] [address] PCP - General Family Medicine 09/08/20 documented as of this encounter
--- OUTSIDE RECORDS SUMMARY | 2024-03-25 08:29 | XMS_ITS | Encounter Summary ---
Author Organization [facility] [place] Address [address] [place] [address] Care Team Providers Care Buggy Ladle Tender Name Role Phone Bin Camacho MD Primary Care Provider Encounter Details Date Type Department Care Team (Late st Contact Info) Description 02/06/2024 Treatment [facility] [place] [address] [place] [address] Jagjit Martinez MD [address] [place] [address] Social History Tobacco Use Types [...] Dialysis Note - Jagjit Martinez MD - 02/06/2024 9:44 AM CDT Date: Feb 06, 2024 Patient Name: Obi Mcdowell : 1955 Chart #: [id number] Sex: M This patient was personally seen for a complete visit as part of routine monthly dialysis care. A review of the dialysis treatment, blood pressure, estimated dry weight and recent lab values was made. These were discussed with the patient and staff as necessary. Treatment Data for 02/06/2024 started at:7:12 AM Dialyzer: 180NRe Optiflux Na: 137 mEq/L Bicarb: 31 mEq/L Dialysate: 3.0 K, 2.5 Ca, 1.0 Mg, 100 Dextrose (G3251) Dialysate/Machine Temp (prescribed): 37 C Dialysate/Machine Temp (actual): 35.8 C BFR (prescribed): 450 BFR (actual): 450 Prescribed time: 03:30 EDW: 105.5 kg Access Type: Active (In Use):AVFistula-Standard/Right Upper Arm Pre Dialysis Vitals (for 02/06/2024 6:27 AM ) Pre BP (sit): 152/70 Pre Wt: 108.6 kg Temp: 97.8 F Post Dialysis Vitals (for 02/04/2024 9:51 AM ) Post BP (sit): 142/79 Post Wt: 105.5 kg Current Dialysis Vitals (for 02/06/2024 9:33 AM ) BP (sit): 162/88 AP(-) / TIE BUYER: 251/193 Pulse: 57 Chairside data as of 02/06/2024 9:33 AM Last 3 Treatments 02/04/2024 02/01/2024 01/30/2024 EDW (kg) 105.5 105.5 105.5 Weight Pre (kg) 108.8 108.8 109.1 Weight Post (kg) 105.5 105.5 105.6 Dialytic Weight Loss (kg) -3.3 -3.3 -3.5 EDW Deviation (kg) 0.0 0.0 0.1 BP Sit Pre 148/79 153/82 149/80 BP Sit Post 142/79 123/67 132/75 UF Rate (mL/kg/hr) 9 9 9 Prescribed BFR 450 450 450 Average Delivered BFR 450 450 450 Prescribed Treatment Time 03:30 03:30 03:30 Actual Treatment Time 03:32 03:31 03:36 Last 3 Values 12/21/2023 12/14/2023 12/10/2023 Access Flow 1106 > 2000 854 ULTRASONOGRAPHER: Jagjit Martinez MD LOCATION: [phone] SCHEDULE: -- 1st Shift EDW: kg. DIALYZER: HD DURATION: NEEDLE SIZE: ANTICOAG: BATH: QB: ml/min QD: ml/min Subjective Tolerating dialysis well. Good appetite. Reports no trouble with access. 02/05: He is doing well. He has c-scope scheduled mid-February and planned around dialysis. He has no CP, SOB, cramps. BP has been at goal. Advanced Practitioner Subjective CASH ON DELIVERY CLERK 01/28/2024: Seen while on dialysis. States that [...] Will continue to challenge EDW as tolerated. CASH ON DELIVERY CLERK 12/12/2023: Patient seen at chairside. Feeling well. [...] No murmur heard. Edema - Trace edema. stable Access - AVF lower arm in use [...] as directed as directed. prn RenaPlex-D (vit b,c-wl-siwn-selen-vit d3-e) 800 mcg-12.5 mg-2,000 unit tablet Take [...] Anemia Assessment HEMOGLOBIN (G/DL) IN BLOOD g/dL 11.3 (01/30/24) 11.4 (01/23/24) 10.8 (01/16/24) 10.5 (01/09/24) 10.2 (01/02/24) PLATELETS 1000/mcL 259 (01/09/24) 229 (12/12/23) 283 [...] at goal. Intact PTH is at goal. Lard Tub Washer will adjust binders and vitamin D per [...] UF Transplant Status: Patient has evaluation underway. [place] [facility] [place] He declines COVID vaccination. I notified him on 01/22/23 that COVID vaccine policy has changed to recommended rather than required and he is being worked up. Nearing completion of work-up to be listed, c-scope scheduled in February Resuscitation Status Discussed with patient 05/23/22 who requested Full Code. Stable dialysis, no changes today. Continue work-up for Tx, c-scope scheduled Jagjit Martinez MD [ Signed And locked electronically On 02/06/2024 at 09:47:27 AM ] Transcribed: Jagjit Martinez ( 02/06/2024 ) documented in this encounter Plan of Treatment Not on file documented as of this encounter Visit Diagnoses Not on filedocumented in this encounter Care Teams Buggy Ladle Tender Relationship Specialty [place] [address] [place] [address] PCP - General Family Medicine 09/08/20 documented as of this encounter
--- OUTSIDE RECORDS SUMMARY | 2024-03-25 08:29 | XMS_ITS | Encounter Summary ---
Author Organization [facility] Address [address] [facility] [address] [place] [address] Care Team Providers Care Marine Cargo Inspector Name Role Phone Bin Camacho MD Primary Care Provider [phone] Encounter Details Date Type Department Care Team (Late st Contact Info) Description 01/30/2024 Orders Only [facility] [place] [address] [facility] [address] [place] [address] Jagjit Martinez MD [address] [place] [address] Social History Tobacco Use Types [...] Priority Date/Time Associated Diagnosis Comments HEMATOLOGY Routine 01/30/2024 documented in this encounter Results * (ABNORMAL) HEMATOLOGY (01/30/2024) Hemoglobin 11.3(L) 14.0 - 18.0 g/dL [facility] Hemoglobin x 3 33.9(L) 42.0 - 54.0 % [facility] 01/30/2024 01/31/2024 3:5 9 AM CDT Narrative [facility] - 01/31/2024 Unless otherwise specified, test(s) performed at: [facility], [address] [place] [address], [place] [address] MINE SUPERINTENDENT: Arnoldo Patricio M.D., Ph.D For any questions, please call customer service at FREQUENCY:OTHER Resulting Agency Comment Specimen source: Blood Jagjit Martinez MD LAB BLOOD ORDERABLES [facility] See order comments or contact performing lab Unknown, [place] documented in this encounter Visit Diagnoses Not on filedocumented in this encounter Care Teams Marine Cargo Inspector Relationship Specialty [place] [address] [place] [address] PCP - General Family Medicine 09/08/20 documented as of this encounter
== END 2024-03-25 08:15 | disposition home or self-care (01) ==
PROVIDERS: PCP Nurse Practitioner Family; Visit Provider Nurse Practitioner Family
DX: E78.5 Hyperlipidemia, unspecified (principal); I10 Essential (primary) hypertension; R79.89 Other specified abnormal findings of blood chemistry
CPT/HCPCS: 80061; 80076; 84443; 85025

== ENCOUNTER 2024-05-27 08:14 | Outpatient (CLI) | payer MEDICARE, BC, SELFPAY ==
--- OUTSIDE RECORDS SUMMARY | 2024-05-27 08:18 | XMS_ITS | Clinical Summary ---
Author Organization [facility] Address [address] [place] [address] Phone Care Team Providers Care Campaign Manager Name Role Phone Bin Camacho MD Primary Care Provider [phone] Allergies No known active allergies Medications cloNIDine (CATAPRES) 0.2 MG tablet Take 0.2 mg by mouth twice a day 1 Active clopidogrel (PLAVIX) 75 MG tablet Take 75 mg by mouth 1 (one) time each day 1 Active hydrALAZINE 100 MG tablet Take 1 tablet (100 mg total) by mouth in the morning and 1 tablet (100 mg total) at noon and 1 tablet (100 mg total) in the evening and 1 tablet (100 mg total) before bedtime. 360 tablet 3 2 Active sodium bicarbonate 650 MG tablet Take 3 tablets (1,950 mg total) by mouth in the morning and 3 tablets (1,950 mg total) in the evening and 3 tablets (1,950 mg total) before bedtime. 810 tablet 3 2 Active NIFEdipine XL (PROCARDIA XL) 60 MG 24 hr tablet TAKE 1 TABLET(60 MG) BY MOUTH TWICE DAILY. DO NOT CRUSH, CHEW, OR SPLIT 180 tablet 2 2 Active metoprolol tartrate (LOPRESSOR) 50 MG tablet Take 1 tablet (50 mg total) by mouth in the morning and 1 tablet (50 mg total) in the evening. 60 tablet 3 2 Active torsemide (Demadex) 20 MG tabletIndication s:Stage 5 chronic kidney disease (HCC) Take 2 tablets (40 mg total) by mouth 1 (one) time each day 180 tablet 3 2 Active calcitriol (ROCALTROL) 0.25 MCG capsule TAKE 1 CAPSULE BY MOUTH THREE TIMES WEEKLY ON SUNDAY, SUNDAY AND SUNDAY 36 capsule 2 2 Active Calcium Acetate, Phos Binder, 667 MG capsuleIndicatio ns:Hyperphosphat emia Take one capsule (667 mg) by mouth before each meal 90 capsule 3 2 Active hydroCHLOROthiaz ezra 25 MG tablet Take 1 tablet by mouth 1 (one) time each day Active lisinopril 40 MG tablet Take 40 mg by mouth 1 (one) time each day Active cloNIDine (CATAPRES) 0.1 MG tablet Take 0.1 mg by mouth in the morning and 0.1 mg in the evening. Active Active Problems Problem Noted Date Diagnosed Date Peripheral vascular disease 04/14/2024 Paroxysmal atrial fibrillation 04/14/2024 Dependence on renal dialysis 04/14/2024 Anemia in end stage renal disease 04/14/2024 End stage renal disease due to hypertension 01/2024 End stage renal disease 04/14/2024 Hyperparathyroidism due to renal insufficiency 1 Hypertensive disorder 09/09/2020 Resolved Problems Problem Noted Date Diagnosed Date Resolved Date Chronic kidney disease stage 4 09/09/2020 04/14/2024 Encounters Date Type Department Care Team Description 05/23/2024 Treatment [facility] [address] [place] [address] Jagjit Martinez MD 05/14/2024 Orders Only [facility] [address] [place] [address] Jagjit Martinez MD 05/14/2024 Treatment [facility] [address] [place] [address] Rosie Monsivais, LAND DEVELOPER-INSULATION MANAGER 05/07/2024 Orders Only [facility] [address] [place] [address] Jagjit Martinez MD 05/05/2024 Treatment [facility] [address] [place] [address] Jagjit Martinez MD 04/30/2024 Orders Only [facility] [address] [place] [address] Jagjit Martinez MD 04/23/2024 Orders Only [facility] [address] [place] [address] Jagjit Martinez MD 04/21/2024 Treatment [facility] [address] [place] [address] Rosie Monsivais, LAND DEVELOPER-INSULATION MANAGER 04/16/2024 Orders Only [facility] [address] [place] [address] Jagjit Martinez MD 04/09/2024 Orders Only [facility] [address] [facility] [address] Jagjit Martinez MD 04/07/2024 Orders Only [facility] [address] [facility] [address] Jagjit Martinez MD 04/04/2024 Treatment [facility] [address] [facility] [place] [address] Rosie Monsivais, LAND DEVELOPER-INSULATION MANAGER 03/26/2024 Orders Only [facility] [address] [place] [address] Jagjit Martinez MD 03/24/2024 Treatment [facility] [address] [facility] [place] [address] Jagjit Martinez MD 03/19/2024 Orders Only [facility] [place] [address] [place] [address] Jagjit Martinez MD 03/12/2024 Orders Only [facility] [place] [address] [facility] [address] [place] [address] Jagjit Martinez MD 03/05/2024 Orders Only [facility] [place] [address] [facility] [address] [place] [address] Jagjit Martinez MD 03/05/2024 Treatment [facility] [address] [facility] [place] [address] Rosie Monsivais, LAND DEVELOPER-INSULATION MANAGER 02/27/2024 Orders Only [facility] [address] [facility] [address] [place] [address] Jagjit Martinez MD from Last 3 Months [...] Recorded Sex Assigned at Not on file Legal Sex Male 8:48 AM EST Gender Identity Not on file Sexual Orientation Not on file Last Filed Vital Signs Vital Sign Reading Time Taken Comments Blood Pressure 125/80 04/06/2022 8:51 AM CDT Pulse 80 04/06/2022 8:51 AM CDT Temperature 36.4 C (97.5 F) 11/05/2020 3:26 PM CDT Respiratory Rate - - Oxygen Saturation - [...] Procedure Name Priority Date/Time Associated Diagnosis Comments [facility] RESULTS Routine 05/14/2024 TRACE ELEMENTS Routine 05/14/2024 CHEMISTRY Routine 05/14/2024 HD KINETICS Routine 05/14/2024 POST CHEMISTRY Routine 05/14/2024 SPECIAL CHEMISTRY Routine 05/14/2024 CHEMISTRY Routine 05/14/2024 HEMATOLOGY Routine 05/14/2024 HEMATOLOGY Routine 05/07/2024 HEMATOLOGY Routine 04/30/2024 HEMATOLOGY Routine 04/23/2024 HEMATOLOGY Routine 04/16/2024 [facility] RESULTS Routine 04/09/2024 HD KINETICS Routine 04/09/2024 POST CHEMISTRY Routine 04/09/2024 CHEMISTRY Routine 04/09/2024 HEMATOLOGY Routine 04/09/2024 HEMATOLOGY Routine 04/07/2024 HEMATOLOGY Routine 03/26/2024 HEMATOLOGY Routine 03/19/2024 [facility] RESULTS Routine 03/12/2024 HD KINETICS Routine 03/12/2024 POST CHEMISTRY Routine 03/12/2024 CHEMISTRY Routine 03/12/2024 HEMATOLOGY Routine 03/12/2024 HEMATOLOGY Routine 03/05/2024 HEMATOLOGY Routine 02/27/2024 from Last 3 Months Results * HD KINETICS (05/14/2024) Only the most recent of3 resultswithin the time period is included. Pathologist [facility] % Urea Reduction 73 65 - 80 % [facility] 05/14/2024 05/15/2024 8:0 6 AM SCREEN HANDLER Narrative Resulting Agency Comment Specimen source: Plasma Jagjit Martinez MD LAB BLOOD ORDERABLES Final Re sult [facility] See order comments or contact performing lab Unknown, [place] * SPECIAL CHEMISTRY (05/14/2024) Pathologist [facility] Vitamin D, 25-OH, Total 56.2 30.0 - 100.0 ng/mL [facility] Comment: Please Note: Effective July 17, 2021, the methodology for this test has changed to the SIEMENS ATELLICA method 05/14/2024 05/15/2024 6:5 9 AM SCREEN HANDLER Narrative Resulting Agency Comment Specimen source: Serum Jagjit Martinez MD LAB BLOOD BANK TEST ORDERABLE S Final Result [facility] See order comments or contact performing lab Unknown, [place] * (ABNORMAL) POST CHEMISTRY (05/14/2024) Only the most recent of3 resultswithin the time period is included. BUN Post Dialysis 20(H) 6 - 19 mg/dL [facility] 05/14/2024 05/15/2024 8:0 6 AM SCREEN HANDLER [facility] - 05/15/2024 Unless otherwise specified, test(s) performed at: [facility], [address] [place] [address], [place] [address] INFORMATION SYSTEMS ARCHITECT: Arnoldo Patricio M.D., Ph.D For any questions, please call customer service at FREQUENCY:MONTHLY Resulting Agency Comment Specimen source: Plasma Jagjit Martinez MD LAB BLOOD ORDERABLES Final Re sult Performing Organization Address City/[facility]/ZIP Co de Phone Number [facility] See order comments or contact performing lab Unknown, [place] * TRACE ELEMENTS (05/14/2024) Aluminum <5 0 - 10 mcg/L [facility] Comment: This test was developed and its performance characteristics determined by [facility]. It has not been cleared or approved by the FDA. The laboratory is regulated under CLIA as qualified to perform high complexity testing. This test is used for clinical purposes. It should not be regarded as investigational or for research. 05/14/2024 05/15/2024 5:1 5 AM [facility] - 05/15/2024 Unless otherwise specified, test(s) performed at: [facility], [address] [place] [address] INFORMATION SYSTEMS ARCHITECT: Arnoldo Patricio M.D., Ph.D For any questions, please call customer service at FREQUENCY:MONTHLY Resulting Agency Comment Specimen source: Serum Jagjit Martinez MD LAB BLOOD ORDERABLES Final Re sult [facility] See order comments or contact performing lab Unknown, [place] * (ABNORMAL) HEMATOLOGY (05/14/2024) Only the most recent of12 resultswithin the time period is included. WBC 10.79 4.80 - 10.80 1000/mcL [facility] RBC 3.38(L) 4.70 - 6.10 mill/mcL [facility] Hematocrit 33.5(L) 42.0 - 52.0 % [facility] MCV 99 80 - 100 fl [facility] MCH 32.9(H) 27.0 - 31.0 pg [facility] MCHC 33.2 30.0 - 36.0 g/dL [facility] RDW 12.9 11.5 - 14.5 % [facility] Hemoglobin 11.1(L) 14.0 - 18.0 g/dL [facility] Hemoglobin x 3 33.3(L) 42.0 - 54.0 % [facility] Platelets 308 130 - 400 1000/mcL [facility] 05/14/2024 05/15/2024 8:1 9 AM SCREEN HANDLER Narrative [facility] - 05/15/2024 Unless otherwise specified, test(s) performed at: [facility], [address] [place] [address], [place] [address] INFORMATION SYSTEMS ARCHITECT: Arnoldo Patricio M.D., Ph.D For any questions, please call customer service at FREQUENCY:MONTHLY Resulting Agency Comment Specimen source: Blood Jagjit Martinez MD LAB BLOOD ORDERABLES Final Re [facility] See order comments or contact performing lab Unknown, [place] * (ABNORMAL) [facility] Chemistry (05/14/2024) Only the most recent of4 resultswithin the time period is included. PTH 1,074(H) 16 - 80 pg/mL [facility] 05/14/2024 05/15/2024 7:5 5 AM SCREEN HANDLER Narrative [facility] - 05/15/2024 Unless otherwise specified, test(s) performed at: [facility], [address] [place] [address], [place] [address] INFORMATION SYSTEMS ARCHITECT: Arnoldo Patricio M.D., Ph.D For any questions, please call customer service at FREQUENCY:MONTHLY Resulting Agency Comment Specimen source: Plasma Jagjit Martinez MD LAB BLOOD ORDERABLES Final Re sult [facility] See order comments or contact performing lab Unknown, [place] * [facility] Results (05/14/2024) Only the most recent of3 resultswithin the time period is included. nPCR_HD 1.25 [facility] spKt/V Gotch 1.55 [facility] eKdrt/V 1.31 [facility] eKt/V Gotch 1.31 [facility] eNPCR 1.15 [facility] spKt/V (Daugirdas II) 1.49 [facility] eKt/V (Tattersall) 1.28 [facility] WSTDKT/V 2.4 [facility] PCR 77.30 [facility] 05/14/2024 05/14/2024 [facility] [place] LAB BLOOD ORDERABLES Final Result Performing Organization Address City/[facility]/ZIP Co de Phone Number [facility] Contact Performing lab Unknown, [place] from Last 3 Months Insurance MEDICARE Care Teams Campaign Manager Relationship Specialty [place] [address] [place] [address] PCP - General Family Medicine 09/08/20
--- OUTSIDE RECORDS SUMMARY | 2024-05-27 08:19 | XMS_ITS | Encounter Summary ---
Author Organization [facility] [place] [place] Address [address] [facility] [address] [place] [address] Care Team Providers Care Business Process Coordinator Name Role Phone Bin Camacho MD Primary Care Provider [phone] Encounter Details Date Type Department Care Team (Late st Contact Info) Description 03/12/2024 Orders Only [facility] [place] [address] [facility] [address] [place] [address] Jagjit Martinez MD [address] [place] [address] Social History Tobacco Use Types [...] documented in this encounter Results * [facility] Results (03/12/2024) Pathologist [facility] PCR 78.86 [facility] Center spKt/V Gotch 1.56 [facility] eKdrt/V 1.32 [facility] eNPCR 1.15 [facility] eKt/V ([place]all) 1.28 [facility] WSTDKT/V 2.4 [facility] eKt/V Gotch 1.32 [facility] e Center spKt/V (Daugirdas II) 1.49 [facility] nPCR_HD 1.30 [facility] 03/12/2024 03/12/2024 [facility] [place] LAB BLOOD ORDERABLES Final Result [facility] Contact Performing lab Unknown, [place] * HD KINETICS (03/12/2024) Pathologist [facility] % Urea Reduction 72 65 - 80 % [facility] 03/12/2024 03/14/2024 2:4 9 PM CDT Narrative Resulting Agency Comment Specimen source: Plasma Jagjit Martinez MD LAB BLOOD ORDERABLES Final Re sult [facility] See order comments or contact performing lab Unknown, [place] * (ABNORMAL) POST CHEMISTRY (03/12/2024) Pathologist [facility] BUN Post Dialysis 20(H) 6 - 19 mg/dL [facility] 03/12/2024 03/14/2024 2:4 9 PM CDT Narrative [facility] - 03/14/2024 Unless otherwise specified, test(s) performed at: [facility], [address] [place] [address], [place] [address] JANITOR CLEANER: Arnoldo Patricio M.D., Ph.D For any questions, please call customer service at FREQUENCY:MONTHLY Resulting Agency Comment Specimen source: Plasma us Jagjit Martinez MD LAB BLOOD ORDERABLES Final Re sult [facility] See order comments or contact performing lab [...] 03/12/2024 03/14/2024 2:1 3 PM CDT Narrative [facility] - 03/14/2024 Unless otherwise specified, test(s) performed at: [facility], [address] [place] [address], [place] [address] JANITOR CLEANER: Arnoldo Patricio M.D., Ph.D For any questions, please call customer service at FREQUENCY:MONTHLY Resulting Agency Comment Specimen source: Serum Jagjit Martinez MD LAB BLOOD ORDERABLES Final Re sult [facility] See order comments or contact performing [...] 03/12/2024 03/14/2024 3:1 2 PM CDT Narrative [facility] - 03/14/2024 Unless otherwise specified, test(s) performed at: [facility], [address] [place] [address] JANITOR CLEANER: Arnoldo Patricio M.D., Ph.D For any questions, please call customer service at FREQUENCY:MONTHLY Resulting Agency Comment Specimen source: Blood Jagjit Martinez MD LAB BLOOD ORDERABLES Final Re sult [facility] See order comments or contact performing lab Unknown, [place] documented in this encounter Visit Diagnoses Not on filedocumented in this encounter Care Teams Business Process Coordinator Relationship Specialty [place] [address] [place] [address] PCP - General Family Medicine 09/08/20 documented as of this encounter
--- OUTSIDE RECORDS SUMMARY | 2024-05-27 08:19 | XMS_ITS | Encounter Summary ---
Author Organization [facility] Address [address] [facility] [facility] [address] [place] [address] Care Team Providers Care Rigger Apprentice Name Role Phone Bin Camacho MD Primary Care Provider [phone] Encounter Details Date Type Department Care Team (Late st Contact Info) Description 03/05/2024 Orders Only [facility] [place] [address] [facility] [address] [place] [address] Jagjit Martinez MD [address] [place] [address] Social History Tobacco Use Types [...] 03/06/2024 Unless otherwise specified, test(s) performed at: [facility], [address] [place] [address], [place] [address] DRY MOLDER: Arnoldo Patricio M.D., Ph.D For any questions, please call customer service at FREQUENCY:OTHER Resulting Agency Comment Specimen source: Blood us Jagjit Martinez MD LAB BLOOD ORDERABLES Final Re sult [facility] See order comments or contact performing lab Unknown, [place] documented in this encounter Visit Diagnoses Not on filedocumented in this encounter Care Teams Rigger Apprentice Relationship Specialty [place] [address] [place] [address] PCP - General Family Medicine 09/08/20 documented as of this encounter
--- OUTSIDE RECORDS SUMMARY | 2024-05-27 08:19 | XMS_ITS | Encounter Summary ---
Author Organization [facility] [place] [place] Address [address] [place] [address] Care Team Providers Care Estate Planning Director Name Role Phone Bin Camacho MD Primary Care Provider [phone] Encounter Details Date Type Department Care Team (Late st Contact Info) Description 03/24/2024 Treatment [facility] [place] [address] [place] [address] Jagjit Martinez MD [address] [place] [address] Social History Tobacco Use Types [...] Name: Obi Mcdowell : 1955 Chart #: [id number] Sex: M This patient was personally seen [...] mcg IVP Every 4 weeks 02/20/2024 02/18/2025 SAMPLE PROCESSOR: Jagjit Martinez MD LOCATION: [phone] SCHEDULE: -- 1st Shift EDW: kg. DIALYZER: [...] well over the weekend. Advanced Practitioner Subjective ADMINISTRATIVE PROGRAM SPECIALIST 03/05/2024: Patient seen at chairside. Doing good. [...] with recent runs. Continue plan of care. ADMINISTRATIVE PROGRAM SPECIALIST 01/28/2024: Seen while on dialysis. States that [...] as directed as directed. prn RenaPlex-D (vit b,f-tm-sfxk-selen-vit d3-e) 800 mcg-12.5 mg-2,000 unit tablet Take [...] above goal. Intact PTH is at goal. Loom Fixer Supervisor will adjust binders and vitamin D [...] Status: Patient has evaluation underway. [facility] [place] He declines COVID vaccination. I notified him [...] on filedocumented in this encounter Care Teams Estate Planning Director Relationship Specialty [place] [address] [place] [address] PCP - General Family Medicine 09/08/20 documented as of this encounter
--- OUTSIDE RECORDS SUMMARY | 2024-05-27 08:19 | XMS_ITS | Clinical Summary ---
Author Organization [facility] Address [place], [place] [address] Care Team Providers Care Scrap Breaker Name Role Phone Aram Samuel MD Unavailable + Navi Smith MD Unavailable [phone] Sapna Mccauley NP Primary Care Provider Omayra [...] kidney disease) stage 4, GFR 15-29 ml/min Family History Medical History Relation Name Comments [...] 78 10/08/2023 1:00 PM CDT Temperature 37 C (98.6 F) 10/08/2023 1:00 PM CDT Respiratory Rate 16 [...] screening age 65-74 2019 COVID-19 vaccine series ( season) 2024 Influenza for age 65+ 03/09/2024 BMI (ht and wt on same day) for age 18+ 10/07/2024 10/08/2023, 09/18/2023, 11/01/2020 Lipids for age 45-75 08/14/2025 08/14/2020 Hepatitis C screening for age 18-79 Completed 09/17, 05/11/2021 Procedures Procedure Name Priority Date/Time Associated Diagnosis Comments ANTI HCV Today 09/18/2023 10:56 AM CDT Pre-transplant evaluation for ESRD (end stage renal disease) LIPID PANEL Early AM 08/14/2020 6:25 AM STRIPE MATCHER from Last 3 Months or Most Recently Relevant to Health Maintenance Results * ANTI HCV (09/18/2023 10:56 AM CDT) HEPATITIS C ANTIBODY Non-Reacti ve Non-React chloe 09/18/2023 11:45 AM CDT [facility] Comment:Please note, per www .CDC.gov: [...] AM CDT Dhruv Gomez MD SEND OUTS [facility] [address] [place] [address], [place] * (ABNORMAL) Lipid Panel AM (08/14/2020 6:25 AM STRIPE MATCHER) CHOLESTEROL,TOTAL 241(H) 100 - 199 mg/dL 08/14/2020 6:55 AM STRIPE MATCHER [email or web address] TRIGLYCERIDES 236(H) <150 mg/dL 08/14/2020 6:55 AM STRIPE MATCHER [facility] [employer] [facility] HDL CHOLESTEROL 29(L) >40 mg/dL 6:55 AM STRIPE MATCHER [facility] [employer] [facility] NON-HDL CHOLESTEROL 212(H) <145 mg/dl 08/14/2020 6:55 AM STRIPE MATCHER [facility] [employer] [facility] CHOL/HDL RATIO 8.31(H) <4.50 08/14/2020 6:55 AM STRIPE MATCHER [facility] [employer] [facility] LDL CHOLESTEROL 165(H) <=130 mg/dL 08/14/2020 6:55 AM STRIPE MATCHER [facility] [employer] [facility] PROVIDER ORDERED STATUS RANDOM 08/14/2020 6:55 AM STRIPE MATCHER [facility] [employer] [facility] Blood BLOOD SPECIMEN / Unknown Venipuncture / Unknown 08/14/2020 6:25 AM STRIPE MATCHER 08/14/2020 6:31 AM STRIPE MATCHER Obi Marquez MD CHEMISTRY [facility] [employer] [facility] [address] [place] [address], from Last 3 Months or Most Recently [...] Code Status Discussion: Not Discussed Care Teams Scrap Breaker Relationship Specialty Start Date End Date Sapna Mccauley HIDE SORTER [address] [place] [address] PCP - General Emergency Medicine 05/11/23 Aram Samuel MD [address] [place] [address] Surgery - Urology 05/21/20 Navi Smith MD [address] [place] [address] Nephrology 08/17/20
--- OUTSIDE RECORDS SUMMARY | 2024-05-27 08:19 | XMS_ITS | Encounter Summary ---
Author Organization [facility] Address [address] [place] [address] Care Team Providers Care Early Breastfeeding Care Specialist Name Role Phone Bin Camacho MD Primary Care Provider [phone] Encounter Details Date Type Department Care Team (Late st Contact Info) Description 04/04/2024 Treatment [facility] [place] [address] [place] [address] Uyen Monsivais, RAMIREZ-GAS SCRUBBER OPERATOR [address] [facility] [address] [place] [address] Social History Tobacco Use Types [...] Dialysis Note - Uyen Monsivais APRN-CNP - 04/04/2024 10:11 AM CDT Date: Apr 04, 2024 Patient Name: Obi Mcdowell : 1955 Chart #: [id number] Sex: M This patient was personally seen for a complete visit as part of routine monthly dialysis care. A review of the dialysis treatment, blood pressure, estimated dry weight and recent lab values was made. These were discussed with the patient and staff as necessary. Treatment Data for 04/04/2024 started at:6:06 AM Dialyzer: 180NRe Optiflux Na: 137 mEq/L Bicarb: 31 mEq/L Dialysate: 2.0 K, 2.5 Ca, 1.0 Mg, 100 Dextrose (G2251) Dialysate/Machine Temp (prescribed): 37 C Dialysate/Machine Temp (actual): 36 C BFR (prescribed): 450 BFR (actual): 450 Prescribed time: 03:30 EDW: 105.4 kg Access Type: Active (In Use):AVFistula-Standard/Right Upper Arm Pre Dialysis Vitals (for 04/04/2024 6:01 AM ) Pre BP (sit): 159/78 Pre Wt: 107.9 kg Temp: 97.3 F Post Dialysis Vitals (for 04/02/2024 9:34 AM ) Post BP (sit): 140/99 Post Wt: 105.4 kg Current Dialysis Vitals (for 04/04/2024 9:31 AM ) BP (sit): 148/73 AP(-) / FLUSH TESTER: 230/180 Pulse: 64 Chairside data as of 04/04/2024 9:31 AM Last 3 Treatments 04/02/2024 03/31/2024 03/28/2024 EDW (kg) 105.5 105.5 105.5 Weight Pre (kg) 109.1 109.3 108.3 Weight Post (kg) 105.4 105.8 105.4 Dialytic Weight Loss (kg) -3.7 -3.5 -2.9 EDW Deviation (kg) -0.1 0.3 -0.1 BP Sit Pre 160/85 156/81 127/61 BP Sit Post 140/99 140/67 122/71 UF Rate (mL/kg/hr) 10 9 8 Prescribed BFR 450 450 450 Average Delivered BFR 450 450 450 Prescribed Treatment Time 03:30 03:30 03:30 Actual Treatment Time 03:28 03:32 03:30 Last 3 Values 03/19/2024 02/11/2024 12/21/2023 Access Flow 1991 [id number] Treatment Medication Orders Medication Sig Start Date End Date Heparin Sodium (Porcine) 1,000 Units/mL Systemic 2000 units IVP Every Treatment 03/21/2024 03/20/2025 Heparin Sodium (Porcine) 1,000 Units/mL Systemic 3000 units IVP Every Treatment 01/02/2024 12/31/2024 Mircera 30 mcg IVP Every 4 weeks 02/20/2024 02/18/2025 ENVIRONMENTAL HEALTH TECHNICIAN: Jagjit Martinez MD LOCATION: [phone] SCHEDULE: -- 1st Shift EDW: kg. DIALYZER: [...] well over the weekend. Advanced Practitioner Subjective MASK DESIGN ENGINEER 04/04/2024: Seen while on dialysis. States that he feels good. Denies SOB, chest pain, cramping or dizziness. AVF in use and functional, no reported staff issues. BP stable on treatment. He has a follow-up Dermatology appt on Apr.13. Will continue to challenge EDW as tolerated. MASK DESIGN ENGINEER 03/05/2024: Patient seen at chairside. Doing good. [...] with recent runs. Continue plan of care. MASK DESIGN ENGINEER 01/28/2024: Seen while on dialysis. States that [...] as directed as directed. prn RenaPlex-D (vit b,l-sh-cwbb-selen-vit d3-e) 800 mcg-12.5 mg-2,000 unit tablet Take [...] Anemia Assessment HEMOGLOBIN (G/DL) IN BLOOD g/dL 10.2 (03/26/24) 11.2 (03/19/24) 10.9 (03/12/24) 11.2 (03/05/24) 10.9 (02/27/24) PLATELETS 1000/mcL 256 (03/12/24) 254 (02/13/24) 259 [...] above goal. Intact PTH is at goal. Senior Sales Director will adjust binders and vitamin D per [...] Status: Patient has evaluation underway. [facility] - [place] He declines COVID vaccination. I notified him [...] Full Code. Stable dialysis, no changes today UYEN MONSIVAIS NP [ Signed And locked electronically On 04/04/2024 at 10:45:47 AM ] Transcribed: UYEN MONSIVAIS ( 04/04/2024 ) documented in this encounter Plan of Treatment Not on file documented as of this encounter Visit Diagnoses Not on filedocumented in this encounter Care Teams Early Breastfeeding Care Specialist Relationship Specialty [place] [address] [place] [address] PCP - General Family Medicine 09/08/20 documented as of this encounter
--- OUTSIDE RECORDS SUMMARY | 2024-05-27 08:19 | XMS_ITS | Encounter Summary ---
Author Organization [facility] Address [address] [facility] [address] [place] [address] Care Team Providers Care Delivery Analyst Name Role Phone Bin Camacho MD Primary Care Provider [phone] Encounter Details Date Type Department Care Team (Late st Contact Info) Description 03/19/2024 Orders Only [facility] [place] [address] [facility] [address] [place] [address] Jagjit Martinez MD [address] [place] [address] Social History Tobacco Use Types [...] 03/20/2024 Unless otherwise specified, test(s) performed at: [facility], [address] [place] [address], [place] [address] POOL TABLE MECHANIC: Arnoldo Patricio M.D., Ph.D For any questions, please call customer service at FREQUENCY:OTHER Resulting Agency Comment Specimen source: Blood us Jagjit Martinez MD LAB BLOOD ORDERABLES Final Re sult [facility] See order comments or contact performing lab Unknown, [place] documented in this encounter Visit Diagnoses Not on filedocumented in this encounter Care Teams Delivery Analyst Relationship Specialty [place] [address] [place] [address] PCP - General Family Medicine 09/08/20 documented as of this encounter
--- OUTSIDE RECORDS SUMMARY | 2024-05-27 08:19 | XMS_ITS | Encounter Summary ---
Author Organization [facility] Address [address] [place] [address] Care Team Providers Care Show Host/Hostess Name Role Phone Bin Camacho MD Primary Care Provider [phone] Encounter Details Date Type Department Care Team (Late st Contact Info) Description 04/21/2024 Treatment [facility] [place] [address] [place] [address] Rosie Monsivais APRN-INTELLIGENCE INTERN [address] [place] [address] Social History Tobacco Use Types [...] encounter Miscellaneous Notes * Dialysis Note - Rosie Monsivais APRN-CNP - 04/21/2024 12:00 AM CDT Patient: Obi Mcdowell : 1955 Note Type: Dialysis Rounds-Comp Service Date: 04/21/2024 This patient was personally seen for a complete visit as part of routine monthly dialysis care for end stage renal disease. Attending Weight Loss Centre Manager: DONOVAN MUÑOZ Dialysis Location: [facility] Schedule: Shift: OVERVIEW Patient is stable. Patient has no complaints. COMMENTS: Seen on dialysis. No breathing concerns. Had several skin biopsies completed. Awaiting active listing on transplant list. Access working well. PATIENT HISTORY COMMENTS: Hx: prostate cancer; transabdominal resection of presacral tumor (Hemanth) 09/28/20. 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 Current [facility] Outpatient Medications atorvastatin 20 mg tablet once a day. [take 1 tablet by mouth every night at bedtime.] clonidine HCl 0.2 mg tablet Take 1/2 tablet by mouth twice a day as directed. [do not take before dialysis] Eliquis 5 mg tablet Take 1 tablet by mouth twice a day. hydralazine 50 mg tablet Take 1 tablet by mouth three times a day as directed. [do not take before dialysis.] metoprolol tartrate 50 mg tablet Take 1 tablet by mouth twice a day as directed. [does not take before dialysis MWF] nifedipine 60 mg tablet extended release Take 1 tablet by mouth twice a day as directed. omeprazole 20 mg tablet,delayed release (DR/EC) Take 1 tablet by mouth as directed as directed. [prn] RenaPlex-D 800 mcg-12.5 mg-2,000 unit tablet Take 1 tablet by mouth every evening. Sensipar 30 mg tablet Take 1 tablet by mouth once a day as directed. [TAKE 1 TABLET BY MOUTH EVERY DAY] Velphoro 500 mg tablet,chewable Take 3 tablet by mouth three times a day with meals. [facility] Allergen: No Known Allergies Allergen: No Known Drug Allergies Allergen: No Known Food Allergies DIALYSIS PRESCRIPTION Treatment Data Treatment Date: 04/21/2024 started at: 6:09 AM Dialysate / Machine Temp (prescribed): 37.0*C Dialysate / Machine Temp (actual): 37.0*C BFR (prescribed): 450 BFR (average delivered): 400 DFR (prescribed): Autoflow 1.5 DFR (average delivered): 600 Prescribed Time: 03:30 Actual Time: 03:30 EDW (kg): 105.3 Dialyzer: 180NRe Optiflux Dialysate: 2.0 K, 2.5 Ca, 1.0 Mg, 100 Dextrose (G2251) Sodium: 137 Bicarb: 33 Pre Dialysis Vitals Pre BP Sit: 178/85 Pre Wt (kg): 109.7 EDW Deviation (kg): 4.4 Temp: 97.4*F Post Dialysis Vitals Post BP Sit: 140/86 Post Wt (kg): 106.4 TREATMENT MEDICATIONS ORDERS Heparin Sodium (Porcine) 1,000 Units/mL Systemic 2000 units IVP Every Treatment 03/21/2024 - 03/20/2025 Heparin Sodium (Porcine) 1,000 Units/mL Systemic 3000 units IVP Every Treatment 01/02/2024 - 12/31/2024 Mircera 50 mcg IVP Every 4 weeks 04/09/2024 - 04/08/2025 BP AND FLUID ASSESSMENT Acceptable blood pressure. Fluid status acceptable. EDW appropriate. Post BP Sit 140/86 - 04/21/2024 125/67 - 04/18/2024 132/80 - 04/16/2024 Post Wt (kg) 106.4 - 04/21/2024 105.4 - 04/18/2024 105.6 - 04/16/2024 EDW (kg) 105.3 - 04/21/2024 105.3 - 04/18/2024 105.3 - 04/16/2024 Deviation (kg) 1.1 - 04/21/2024 0.1 - 04/18/2024 0.3 - 04/16/2024 ADEQUACY ASSESSMENT Target met. Prescription compliance acceptable. Missed Treatments 0 - Last 30 days 0 - Last 60 days spKt/V (Daugirdas II) 1.50 (04/09/24) 1.49 (03/12/24) 1.59 (02/13/24) eKdrt/V 1.34 (04/09/24) 1.32 (03/12/24) 1.43 (02/13/24) % Urea Reduction 72 (04/09/24) 72 (03/12/24) 74 (02/13/24) BUN 75 (04/09/24) 72 (03/12/24) 66 (02/13/24) BUN Post Dialysis 21 (04/09/24) 20 (03/12/24) 17 (02/13/24) Creatinine 9.35 (04/09/24) 8.45 (03/12/24) 8.88 (02/13/24) Bicarbonate (CO2) 21 (04/09/24) 23 (03/12/24) 23 (02/13/24) Sodium 141 (04/09/24) 138 (03/12/24) 138 (02/13/24) ACCESS ASSESSMENT Vascular access examined. AVF/AVG positive thrill/bruit. Current access is permanent and functioning well. AVFistula Standard Right Upper Arm Active (In Use) - 05/09/2022 Placed - Unknown Access Flow 1991 (03/19/24) 1532 (02/11/24) 1106 (12/21/23) ANEMIA ASSESSMENT Anemia targets not met. Hemoglobin at target. Continue current ELIANA dose. Continue maintenance iron. Hemoglobin 10.9 (04/16/24) 11.3 (04/09/24) 10.4 (04/07/24) Iron Saturation (TSat) 65 (04/09/24) 75 (03/12/24) 94 (02/13/24) Ferritin 1,114 (02/13/24) 689 (11/07/23) 581 (08/15/23) Iron 167 (04/09/24) 200 (03/12/24) 231 (02/13/24) TIBC 255 (04/09/24) 265 (03/12/24) 245 (02/13/24) Reticulocyte Hemoglobin 34.2 (01/16/24) 33.0 (12/26/23) 34.7 (12/19/23) MCV 100 (04/09/24) 103 (03/12/24) 105 (02/13/24) Folate 12.3 (05/09/23) Platelets 276 (04/09/24) 256 (03/12/24) 254 (02/13/24) BMM ASSESSMENT PTH within target. Hyperphosphatemia noted. Counseled regarding dietary compliance. Calcium controlled. Calcium 9.4 04/09/24 10.3 03/12/24 9.9 02/13/24 Corrected Calcium 9.3 04/09/24 10.1 03/12/24 9.7 02/13/24 Phosphorus 6.5 04/09/24 5.9 03/12/24 4.4 02/13/24 Calcium Phosphorus Product 61 04/09/24 61 03/12/24 44 02/13/24 PTH 551 02/13/24 596 11/07/23 681 10/10/23 Vitamin D, 25-OH, Total 27.7 11/07/23 30.2 05/09/23 Magnesium 2.2 02/13/24 2.3 11/07/23 2.1 08/15/23 Alkaline Phosphatase 145 02/13/24 116 11/07/23 103 08/15/23 Aluminum <5 05/09/23 NUTRITION ASSESSMENT Albumin at goal. Potassium controlled. Albumin 4.1 04/09/24 4.2 03/12/24 4.2 02/13/24 Potassium 4.6 04/09/24 4.6 03/12/24 4.9 02/13/24 eNPCR 1.21 04/09/24 1.15 03/12/24 1.12 02/13/24 PHYSICAL EXAM Exam performed. Vital Signs Reviewed. Lungs - Clear. CV - Blood pressure noted. CV - RRR. No edema. EXT - No ulcers. ADDITIONAL LABS WBC 10.41 (04/09/24) 6.73 (03/12/24) 9.31 (02/13/24) Hepatitis B Surface Ab >1,000 (05/09/23) ADDITIONAL COMMENT COMMENTS: Continue plan of care Signed by: Rosie Monsivais on 04/21/2024 at 10:50:00 AM Transcribed by: Rosie Monsivais on 04/21/2024 at 10:50:00 AM documented in this encounter Plan of Treatment Not on file documented as of this encounter Visit Diagnoses Not on filedocumented in this encounter Care Teams Show Host/Hostess Relationship Specialty [place] [address] [place], [place] [id number] PCP - General Family Medicine 09/08/20 documented as of this encounter
--- OUTSIDE RECORDS SUMMARY | 2024-05-27 08:19 | XMS_ITS | Encounter Summary ---
Author Organization [facility] Address [address] [place] [address] Care Team Providers Care Seaport Planning Manager Name Role Phone Bin Camacho MD Primary Care Provider [phone] Encounter Details Date Type Department Care Team (Late st Contact Info) Description 02/22/2024 Treatment [facility] [place] [address] [place] [address] Jagjit Martinez MD [address] [place] [address] Social History Tobacco Use Types [...] Name: Obi Mcdowell : 1955 Chart #: [id number] Sex: M This patient was personally seen [...] AM ) BP (sit): 119/65 AP(-) / ELECTRONIC TRANSACTION IMPLEMENTER: 219/172 Pulse: 68 Chairside data as of [...] mcg IVP Every 4 weeks 02/20/2024 02/18/2025 REAL ESTATE FIRM MANAGER: Jagjit Martinez MD LOCATION: [phone] SCHEDULE: -- 1st Shift EDW: kg. DIALYZER: HD DURATION: NEEDLE SIZE: ANTICOAG: BATH: QB: ml/min QD: ml/min Subjective Tolerating dialysis well. Good appetite. Reports no trouble with access. 02/22/24: He is doing very well. Had c-scope done and it was clear. Has skin cancer removal scheduled in [place]. No symptoms on dialysis. BP controlled. Denies any new symptoms. AVF working well. Advanced Practitioner Subjective AIR CONDITIONING MANAGER 01/28/2024: Seen while on dialysis. States that [...] Will continue to challenge EDW as tolerated. AIR CONDITIONING MANAGER 12/12/2023: Patient seen at chairside. Feeling well. [...] as directed as directed. prn RenaPlex-D (vit b,a-vy-yrrb-selen-vit d3-e) 800 mcg-12.5 mg-2,000 unit tablet Take [...] at goal. Intact PTH is at goal. Residential Property Tax Appraiser will adjust binders and vitamin D per [...] UF Transplant Status: Patient has evaluation underway. [facility] He declines COVID vaccination. I notified him [...] on filedocumented in this encounter Care Teams Seaport Planning Manager Relationship Specialty [place] [address] [place] [address] PCP - General Family Medicine 09/08/20 documented as of this encounter
--- OUTSIDE RECORDS SUMMARY | 2024-05-27 08:19 | XMS_ITS | Encounter Summary ---
Author Organization [facility] Address [address] [facility] [address] [place] [address] Care Team Providers Care Welding Pantograph Machine Operator Name Role Phone Bin Camacho MD Primary Care Provider [phone] Encounter Details Date Type Department Care Team (Late st Contact Info) Description 04/16/2024 Orders Only [facility] [place] [address] [facility] [address] [place] [address] Jagjit Martinez MD [address] [place] [address] Social History Tobacco Use Types [...] Priority Date/Time Associated Diagnosis Comments HEMATOLOGY Routine 04/16/2024 documented in this encounter Results * (ABNORMAL) HEMATOLOGY (04/16/2024) Hemoglobin 10.9(L) 14.0 - 18.0 g/dL [facility] Hemoglobin x 3 32.7(L) 42.0 - 54.0 % [facility] 04/16/2024 04/17/2024 4:1 1 AM CDT Narrative [facility] - 04/17/2024 Unless otherwise specified, test(s) performed at: [email or web address], [address] [place] [address], [place] [id number] SOLAR APPLICATIONS DEVELOPMENT ENGINEER: Arnoldo Patricio M.D., Ph.D For any questions, please call customer service at FREQUENCY:OTHER Resulting Agency Comment Specimen source: Blood us Jagjit Martinez MD LAB BLOOD ORDERABLES Final Re sult [facility] See order comments or contact performing lab Unknown, [place] documented in this encounter Visit Diagnoses Not on filedocumented in this encounter Care Teams Welding Pantograph Machine Operator Relationship Specialty [place] [address] [place] [address] PCP - General Family Medicine 09/08/20 documented as of this encounter
--- OUTSIDE RECORDS SUMMARY | 2024-05-27 08:19 | XMS_ITS | Encounter Summary ---
Author Organization [facility] [place] Address [address] [place] [address] Care Team Providers Care In Flight Refueling Operator Name Role Phone Bin Camacho MD Primary Care Provider [phone] Encounter Details Date Type Department Care Team (Late st Contact Info) Description 05/05/2024 Treatment [facility] [place] [address] [place] [address] Jagjit Martinez MD [address] [place] [address] Social History Tobacco Use Types [...] Dialysis Note - Jagjit Martinez MD - 05/05/2024 12:00 AM CDT Patient: Obi Mcdowell : 1955 Note Type: Dialysis Rounds-Comp Service Date: 05/05/2024 This patient was personally seen for a complete visit as part of routine monthly dialysis care for end stage renal disease. Attending Scroll Shear Operator: JAGJIT MARTINEZ Dialysis Location: [facility] Schedule: Shift: 1 OVERVIEW COMMENTS: He is doing well. He has no concerns today. His BP is adequate, reaching EDW most of the time. No recent cramps. No CP or SOB. PATIENT HISTORY COMMENTS: Hx: prostate cancer; transabdominal resection of presacral tumor (Hemanth) 09/28/20. 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 Current [facility] Outpatient Medications atorvastatin 20 mg tablet once [...] as directed. omeprazole 20 mg tablet,delayed release (/EC) Take 1 tablet by mouth as directed as directed. [prn] RenaPlex-D 800 mcg-12.5 mg-2,000 unit tablet Take 1 tablet by mouth every evening. Sensipar 30 mg tablet Take 1 tablet by mouth once a day as directed. [TAKE 1 TABLET BY MOUTH EVERY DAY] sevelamer carbonate 800 mg tablet Take 3 tablet by mouth three times a day with meals. [facility] Allerg[facility] Allergen: No Known Allergies Allergen: No Known Drug Allergies Allergen: No Known Food Allergies DIALYSIS PRESCRIPTION Treatment Data Treatment Date: 05/05/2024 started at: 6:13 AM Dialysate / Machine Temp (prescribed): 37.0*C Dialysate / Machine Temp (actual): 37.0*C BFR (prescribed): 450 BFR (actual): 450 DFR (prescribed): Autoflow 1.5 DFR (actual): 700 Prescribed Time: 03:30 EDW (kg): 105.3 Dialyzer: 180NRe Optiflux Dialysate: 2.0 K, 2.5 Ca, 1.0 Mg, 100 Dextrose (G2251) Sodium: 137 Bicarb: 33 Pre Dialysis Vitals Pre BP Sit: 150/80 Pre Wt (kg): 108.1 EDW Deviation (kg): 2.8 Temp: 97.5*F Current Dialysis Vitals BP Sit: 136/69 AP/MECHANICAL INTERN: 229/173 Pulse: 65 TREATMENT MEDICATIONS ORDERS Heparin Sodium (Porcine) 1,000 Units/mL Systemic 4000 units IVP Every Treatment 05/02/2024 - 05/01/2025 Heparin Sodium (Porcine) 1,000 Units/mL Systemic 2000 units IVP Every Treatment 03/21/2024 - 03/20/2025 BP AND FLUID ASSESSMENT Acceptable blood pressure. Fluid status acceptable. EDW appropriate. Post BP Sit 106/67 - 05/02/2024 134/60 - 04/30/2024 122/69 - 04/28/2024 Post Wt (kg) 105.0 - 05/02/2024 105.3 - 04/30/2024 106.3 - 04/28/2024 EDW (kg) 105.3 - 05/02/2024 105.3 - 04/30/2024 105.3 - 04/28/2024 Deviation (kg) -0.3 - 05/02/2024 0.0 - 04/30/2024 1.0 - 04/28/2024 ADEQUACY ASSESSMENT Target met. Prescription compliance acceptable. [...] - 05/09/2022 Placed - Unknown Access Flow 1646 (05/02/24) 1991 (03/19/24) 1532 (02/11/24) ANEMIA ASSESSMENT Anemia targets met. COMMENTS: No ELIANA with Hgb >11 Hemoglobin 11.8 (04/30/24) 11.6 (04/23/24) 10.9 (04/16/24) Iron Saturation (TSat) 65 (04/09/24) 75 (03/12/24) 94 (02/13/24) Ferritin 1,114 (02/13/24) 689 (11/07/23) 581 (08/15/23) Iron 167 (04/09/24) 200 (03/12/24) 231 (02/13/24) TIBC 255 (04/09/24) 265 (03/12/24) 245 (02/13/24) Reticulocyte Hemoglobin 34.2 (01/16/24) 33.0 (12/26/23) 34.7 (12/19/23) MCV 100 (04/09/24) 103 (03/12/24) 105 (02/13/24) Folate 12.3 (05/09/23) Platelets 276 (04/09/24) 256 (03/12/24) 254 (02/13/24) BMM ASSESSMENT PTH within target. Hyperphosphatemia noted. Calcium controlled. Bone and mineral metabolism parameters reviewed. Calcium 9.4 04/09/24 10.3 03/12/24 9.9 02/13/24 [...] eNPCR 1.21 04/09/24 1.15 03/12/24 1.12 02/13/24 TRANSPLANT STATUS COMMENT COMMENTS: 05/05/24: Nearly active for [place] listing. [place]iscuss[place] 4 [place] and he would like to change to [place]. He will be provided with numbers to all Tx programs. PHYSICAL EXAM Exam performed. Vital Signs Reviewed. Lungs - Clear. CV - RRR. No edema. ADDITIONAL LABS WBC 10.41 (04/09/24) 6.73 (03/12/24) 9.31 (02/13/24) Hepatitis B Surface Ab >1,000 (05/09/23) ADDITIONAL COMMENT COMMENTS: Continue plan of care No change to dialysis orders Signed by: Jagjit Martinez on 05/05/2024 at 01:29:54 PM Transcribed by: Jagjit Martinez on 05/05/2024 at 01:29:54 PM documented in this encounter Plan of Treatment Not on file documented as of this encounter Visit Diagnoses Not on filedocumented in this encounter Care Teams In Flight Refueling Operator Relationship Specialty [place] [address] [place] [address] PCP - General Family Medicine 09/08/20 documented as of this encounter
--- OUTSIDE RECORDS SUMMARY | 2024-05-27 08:19 | XMS_ITS | Encounter Summary ---
Author Organization [facility] [place] Address [address] [facility] [address] [place] [address] Care Team Providers Care Frog Catcher Name Role Phone Bin Camacho MD Primary Care Provider [phone] Encounter Details Date Type Department Care Team (Late st Contact Info) Description 03/26/2024 Orders Only [facility] [place] [address] [facility] [address] [place] [address] Jagjit Martinez MD [address] [place] [address] Social History Tobacco Use Types [...] Priority Date/Time Associated Diagnosis Comments HEMATOLOGY Routine 03/26/2024 documented in this encounter Results * (ABNORMAL) HEMATOLOGY (03/26/2024) Hemoglobin 10.2(L) 14.0 - 18.0 g/dL [facility] Hemoglobin x 3 30.6(L) 42.0 - 54.0 % [facility] 03/26/2024 03/27/2024 4:0 3 AM CDT Narrative [facility] - 03/27/2024 Unless otherwise specified, test(s) performed at: [facility], [address] [place] [address], [place] [address] CORPORATE ADMINISTRATOR: Arnoldo Patricio M.D., Ph.D For any questions, please call customer service at FREQUENCY:OTHER Resulting Agency Comment Specimen source: Blood us Jagjit Martinez MD LAB BLOOD ORDERABLES Final Re sult [facility] See order comments or contact performing lab Unknown, [place] documented in this encounter Visit Diagnoses Not on filedocumented in this encounter Care Teams Frog Catcher Relationship Specialty [place] [address] [place] [address] PCP - General Family Medicine 09/08/20 documented as of this encounter
--- OUTSIDE RECORDS SUMMARY | 2024-05-27 08:19 | XMS_ITS | Encounter Summary ---
Author Organization [facility] Address [address] [place] [address] Care Team Providers Care Chief Meteorologist Name Role Phone Bin Camacho MD Primary Care Provider [phone] Encounter Details Date Type Department Care Team (Late st Contact Info) Description 04/30/2024 Orders Only [facility] [place] [address] [facility] [address] [place] [address] Jagjit Martinez MD [address] [place] [address] Social History Tobacco Use Types [...] Priority Date/Time Associated Diagnosis Comments HEMATOLOGY Routine 04/30/2024 documented in this encounter Results * (ABNORMAL) HEMATOLOGY (04/30/2024) Hemoglobin 11.8(L) 14.0 - 18.0 g/dL [facility] Hemoglobin x 3 35.4(L) 42.0 - 54.0 % [facility] 04/30/2024 05/01/2024 2:1 0 AM CDT Narrative [facility] - 05/01/2024 Unless otherwise specified, test(s) performed at: [facility], [address] [place] [address], [place] [address] BEAD SUPERVISOR: Arnoldo Patricio M.D., Ph.D For any questions, please call customer service at FREQUENCY:OTHER Resulting Agency Comment Specimen source: Blood us Jagjit Martinez MD LAB BLOOD ORDERABLES Final Re sult [facility] See order comments or contact performing lab Unknown, [place] documented in this encounter Visit Diagnoses Not on filedocumented in this encounter Care Teams Chief Meteorologist Relationship Specialty [place] [address] [place] [address] PCP - General Family Medicine 09/08/20 documented as of this encounter
--- OUTSIDE RECORDS SUMMARY | 2024-05-27 08:19 | XMS_ITS | Encounter Summary ---
Author Organization [facility] Address [address] [facility] [address] [place] [address] Care Team Providers Care Production Cost Estimator Name Role Phone Bin Camacho MD Primary Care Provider Encounter Details Date Type Department Care Team (Late st Contact Info) Description 02/20/2024 Orders Only [facility] [place] [address] [facility] [address] [place] [address] Jagjit Martinez MD [address] [place] [address] Social History Tobacco Use Types [...] 02/21/2024 Unless otherwise specified, test(s) performed at: [facility], [address] [place] [address], [place] [address] LABORATORY TECHNICAL SPECIALIST: Arnoldo Patricio M.D., Ph.D For any questions, please call customer service at FREQUENCY:OTHER Resulting Agency Comment Specimen source: Blood us Jagjit Martinez MD LAB BLOOD ORDERABLES Final Re sult [facility] See order comments or contact performing lab Unknown, [place] documented in this encounter Visit Diagnoses Not on filedocumented in this encounter Care Teams Production Cost Estimator Relationship Specialty [place] [address] [place] [address] PCP - General Family Medicine 09/08/20 documented as of this encounter
--- OUTSIDE RECORDS SUMMARY | 2024-05-27 08:19 | XMS_ITS | Encounter Summary ---
Author Organization [facility] Address [address] [facility] [address] [place] [address] Care Team Providers Care Wafer Mounter Name Role Phone Bin Camacho MD Primary Care Provider [phone] Reason for Visit * Reason Comments Med Refill Encounter Details Date Type Department Care Team (Late st Contact Info) Description 02/16/2022 Refill [facility] [place] [address] [place] [phone] Navi Smith MD [address] [place] [address] Social History Tobacco Use Types [...] on filedocumented in this encounter Care Teams Wafer Mounter Relationship Specialty [place] [address] [place] [address] PCP - General Family Medicine 09/08/20 documented as of this encounter
--- OUTSIDE RECORDS SUMMARY | 2024-05-27 08:19 | XMS_ITS | Encounter Summary ---
Author Organization [facility] Address [address] [address] [place] [address] Care Team Providers Care Health Education Aide Name Role Phone Bin Camacho MD Primary Care Provider [phone] Encounter Details Date Type Department Care Team (Late st Contact Info) Description 05/07/2024 Orders Only [facility] [place] [address] [facility] [address] [place] [address] Jagjit Martinez MD [address] [place] [address] Social History Tobacco Use Types [...] Priority Date/Time Associated Diagnosis Comments HEMATOLOGY Routine 05/07/2024 documented in this encounter Results * (ABNORMAL) HEMATOLOGY (05/07/2024) Hemoglobin 11.3(L) 14.0 - 18.0 g/dL [facility] Hemoglobin x 3 33.9(L) 42.0 - 54.0 % [facility] 05/07/2024 05/08/2024 7:2 7 AM CDT Narrative [facility] - 05/08/2024 Unless otherwise specified, test(s) performed at: [facility], [address] [place] [address], [place] [address] CORPORATE CONSULTANT: Arnoldo Patricio M.D., Ph.D For any questions, please call customer service at FREQUENCY:OTHER Resulting Agency Comment Specimen source: Blood us Jagjit Martinez MD LAB BLOOD ORDERABLES Final Re sult [email or web address] See order comments or contact performing lab Unknown, [place] documented in this encounter Visit Diagnoses Not on filedocumented in this encounter Care Teams Health Education Aide Relationship Specialty [place] [address] [place] [address] PCP - General Family Medicine 09/08/20 documented as of this encounter
--- OUTSIDE RECORDS SUMMARY | 2024-05-27 08:19 | XMS_ITS | Encounter Summary ---
Author Organization [facility] [place] Address [address] [place] [address] Care Team Providers Care Hot Strip Mill Supervisor Name Role Phone Bin Camacho MD Primary Care Provider [phone] Encounter Details Date Type Department Care Team (Late st Contact Info) Description 05/23/2024 Treatment [facility] [place] [address] [place] [address] Jagjit Martinez MD [address] [place] [address] Social History Tobacco Use Types [...] Dialysis Note - Jagjit Martinez MD - 05/23/2024 12:00 AM CST Patient: Obi Mcdowell : 1955 Note Type: Dialysis Rounds-Comp Service Date: 05/23/2024 This patient was personally seen for a complete visit as part of routine monthly dialysis care for end stage renal disease. Attending Maintenance Equipment Operator: JAGJIT MARTINEZ Dialysis Location: [facility] Schedule: Shift: 1 OVERVIEW COMMENTS: 05/23/24 MD: He is feeling well today. He has no new concerns. Has stress test upcoming for Tx, last test and then hopefully should be listed. Discussed Soy, on AV for a-fib, may have see Dr. Patterson at [place] to consider coming off AC rather than using Warfarin 05/14/2024: Seen on treatment. Feeling well. Monthly labs today. Had to adjust binders due to cost and GI issues. He will have better coverage in Jul. BP stable. Achieving EDW with recent runs. Denies cramping, chest pain or SOB. PATIENT HISTORY COMMENTS: Hx: prostate cancer; transabdominal resection of presacral tumor ([facility]em[facility]) 09/28/20. 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 Current [facility] Outpatient Medications atorvastatin 20 mg tablet once [...] three times a day with meals. Current [facility] Allergies Allergen: No Known Allergies Allergen: No Known Drug Allergies Allergen: No Known Food Allergies DIALYSIS PRESCRIPTION Treatment Data Treatment Date: 05/23/2024 started at: 6:15 AM Dialysate / Machine Temp (prescribed): 37.0*C Dialysate / Machine Temp (actual): 36.0*C BFR (prescribed): 450 BFR (average delivered): 450 DFR (prescribed): Autoflow 1.5 DFR (average delivered): 700 Prescribed Time: 03:30 Actual Time: 03:31 EDW (kg): 105.5 Dialyzer: 180NRe Optiflux Dialysate: 2.0 K, 2.5 Ca, 1.0 Mg, 100 Dextrose (G2251) Sodium: 137 Bicarb: 35 Pre Dialysis Vitals Pre BP Sit: 183/89 Pre Wt (kg): 108.1 EDW Deviation (kg): 2.6 Temp: 97.4*F Post Dialysis Vitals Post BP Sit: 127/73 Post Wt (kg): 105.2 TREATMENT MEDICATIONS ORDERS Heparin Sodium (Porcine) 1,000 Units/mL Systemic 4000 units IVP Every Treatment 05/02/2024 - 05/01/2025 Heparin Sodium (Porcine) 1,000 Units/mL Systemic 2000 units IVP Every Treatment 03/21/2024 - 03/20/2025 Vitamin D (Calcitriol) Oral 0.25 mcg ORAL 3X Week 05/19/2024 - 05/18/2025 BP AND FLUID ASSESSMENT Acceptable blood pressure. Fluid status acceptable. EDW appropriate. COMMENTS: BP has been more stable post-run Post BP Sit 127/73 - 05/23/2024 157/77 - 05/21/2024 127/73 - 05/19/2024 Post Wt (kg) 105.2 - 05/23/2024 105.6 - 05/21/2024 107.0 - 05/19/2024 EDW (kg) 105.5 - 05/23/2024 105.5 - 05/21/2024 105.5 - 05/19/2024 Deviation (kg) -0.3 - 05/23/2024 0.1 - 05/21/2024 1.5 - 05/19/2024 ADEQUACY ASSESSMENT Target met. Prescription compliance acceptable. Missed Treatments 0 - Last 30 days 0 - Last 60 days spKt/V (Daugirdas II) 1.49 (05/14/24) 1.50 (04/09/24) 1.49 (03/12/24) eKdrt/V 1.31 (05/14/24) 1.34 (04/09/24) 1.32 (03/12/24) % Urea Reduction 73 (05/14/24) 72 (04/09/24) 72 (03/12/24) BUN 73 (05/14/24) 75 (04/09/24) 72 (03/12/24) BUN Post Dialysis 20 (05/14/24) 21 (04/09/24) 20 (03/12/24) Creatinine 10.09 (05/14/24) 9.35 (04/09/24) 8.45 (03/12/24) Bicarbonate (CO2) 19 (05/14/24) 21 (04/09/24) 23 (03/12/24) Sodium 137 (05/14/24) 141 (04/09/24) 138 (03/12/24) ACCESS ASSESSMENT Vascular access examined. AVF/AVG positive thrill/bruit. Current access is permanent and functioning well. AVFistula Standard Right Upper Arm Active (In Use) - 05/09/2022 Placed - Unknown Access Flow 1758 (05/21/24) 1646 (05/02/24) 1991 (03/19/24) ANEMIA ASSESSMENT Anemia targets met. COMMENTS: No ELIANA with Hgb >11 Hemoglobin 11.1 (05/14/24) 11.3 (05/07/24) 11.8 (04/30/24) Iron Saturation (TSat) 75 (05/14/24) 65 (04/09/24) 75 (03/12/24) Ferritin 1,087 (05/14/24) 1,114 (02/13/24) 689 (11/07/23) Iron 194 (05/14/24) 167 (04/09/24) 200 (03/12/24) TIBC 260 (05/14/24) 255 (04/09/24) 265 (03/12/24) Reticulocyte Hemoglobin 34.2 (01/16/24) 33.0 (12/26/23) 34.7 (12/19/23) MCV 99 (05/14/24) 100 (04/09/24) 103 (03/12/24) Platelets 308 (05/14/24) 276 (04/09/24) 256 (03/12/24) BMM ASSESSMENT PTH elevated. Hyperphosphatemia noted. Calcium controlled. Bone and mineral metabolism parameters reviewed. COMMENTS: Temporary adjustment to binders d/t coverage, he is taking 2 now instead of 1 with meals and will re-assess phos next sheldon Calcium 9.5 05/14/24 9.4 04/09/24 10.3 03/12/24 Corrected Calcium 9.3 05/14/24 9.3 04/09/24 10.1 03/12/24 Phosphorus 8.2 05/14/24 6.5 04/09/24 5.9 03/12/24 Calcium Phosphorus Product 78 05/14/24 61 04/09/24 61 03/12/24 PTH 1,074 05/14/24 551 02/13/24 596 11/07/23 Vitamin D, 25-OH, Total 56.2 05/14/24 27.7 11/07/23 Magnesium 2.2 05/14/24 2.2 02/13/24 2.3 11/07/23 Alkaline Phosphatase 117 05/14/24 145 02/13/24 116 11/07/23 Aluminum <5 05/14/24 NUTRITION ASSESSMENT Albumin at goal. Potassium controlled. Albumin 4.3 05/14/24 4.1 04/09/24 4.2 03/12/24 Potassium 5.1 05/14/24 4.6 04/09/24 4.6 03/12/24 eNPCR 1.15 05/14/24 1.21 04/09/24 1.15 03/12/24 TRANSPLANT STATUS COMMENT COMMENTS: 05/05/24: Nearly active for Tx listing. Discussed 4 options for transplant in [place] and he would like to change to [place]. He will be provided with numbers to all Tx programs. Will finish work-up to be listed at [facility] first. PHYSICAL EXAM Exam performed. Vital Signs Reviewed. Lungs - Clear. CV - Blood pressure noted. CV - RRR. No edema. ADDITIONAL LABS WBC 10.79 (05/14/24) 10.41 (04/09/24) 6.73 (03/12/24) Signed by: JAGJIT MARTINEZ MD on 05/23/2024 at 01:23:36 PM Transcribed by: JAGJIT MARTINEZ MD on 05/23/2024 at 01:23:36 PM documented in this encounter Plan of Treatment Not on file documented as of this encounter Visit Diagnoses Not on filedocumented in this encounter Care Teams Hot Strip Mill Supervisor Relationship Specialty [place] [address] [place] [address] PCP - General Family Medicine 09/08/20 documented as of this encounter
--- OUTSIDE RECORDS SUMMARY | 2024-05-27 08:19 | XMS_ITS | Encounter Summary ---
Author Organization [facility] Address [address] [facility] [address] [facility] [address] [place] [address] Care Team Providers Care Lamp Shade Sewer Name Role Phone Bin Camacho MD Primary Care Provider [phone] Reason for Visit * Reason Comments Med Refill Encounter Details Date Type Department Care Team (Late st Contact Info) Description 07/16/2022 Refill [facility] [place] [address] [place] [phone] Rosie Monsivais, DERMATOLOGY PHYSICIAN-EARLY CHILDHOOD EDUCATION WORKER [address] [place] [address] Social History Tobacco Use Types [...] on filedocumented in this encounter Care Teams Lamp Shade Sewer Relationship Specialty [place] [address] [place] [address] PCP - General Family Medicine 09/08/20 documented as of this encounter
--- OUTSIDE RECORDS SUMMARY | 2024-05-27 08:19 | XMS_ITS | Encounter Summary ---
Author Organization [facility] Address [address] [facility] [address] [place] [address] Care Team Providers Care Dry Chain Puller Name Role Phone Bin Camacho MD Primary Care Provider [phone] Encounter Details Date Type Department Care Team (Late st Contact Info) Description 04/09/2024 Orders Only [facility] [place] [address] [facility] [address] [place] [address] Jagjit Martinez MD [address] [place] [address] Social History Tobacco Use Types [...] Date/Time Associated Diagnosis Comments HD KINETICS Routine 04/09/2024 POST CHEMISTRY Routine 04/09/2024 HEMATOLOGY Routine 04/09/2024 CHEMISTRY Routine 04/09/2024 [facility] RESULTS Routine 04/09/2024 documented in this encounter Results * [facility] Results (04/09/2024) Pathologist [facility] spKt/V (Daugirdas II) 1.50 [facility] PCR 84.39 [facility] eKt/V Gotch 1.34 [facility] eKdrt/V 1.34 [facility] eKt/V (Tattersall) 1.29 [facility] nPCR_HD 1.37 [facility] eNPCR 1.21 [facility] WSTDKT/V 2.4 [facility] spKt/V Gotch 1.57 [facility] 04/09/2024 04/09/2024 [facility] Ordering Provider LAB BLOOD ORDERABLES Final Result [facility] Contact Performing lab Unknown, [place] * HD KINETICS (04/09/2024) Pathologist [facility] % Urea Reduction 72 65 - 80 % [facility] 04/09/2024 04/10/2024 6:1 6 PM CDT Narrative Resulting Agency Comment Specimen source: Plasma Jagjit Martinez MD LAB BLOOD ORDERABLES Final Re sult [facility] See order comments or contact performing lab Unknown, [place] * (ABNORMAL) POST CHEMISTRY (04/09/2024) Pathologist [facility] BUN Post Dialysis 21(H) 6 - 19 mg/dL [facility] 04/09/2024 04/10/2024 6:1 6 PM CDT Narrative [facility] - 04/10/2024 Unless otherwise specified, test(s) performed at: [facility], [address] [place] [address], [place] [address] ADVERTISING DISPLAY ROTATOR: Arnoldo Patricio M.D., Ph.D For any questions, please call customer service at FREQUENCY:MONTHLY Resulting Agency Comment Specimen source: Plasma us Jagjit Martinez MD LAB BLOOD ORDERABLES Final Re sult [facility] See order comments or contact performing lab Unknown, [place] * (ABNORMAL) [facility] (04/09/2024) BUN 75(H) 6 - 19 mg/dL [facility] Creatinine 9.35(H) 0.60 - 1.30 mg/dL [facility] BUN/Creatinine Ratio 8.0(L) 10.0 - 20.0 [facility] Sodium 141 136 - 145 mEq/L [facility] Potassium 4.6 3.5 - 5.1 mEq/L [facility] Chloride 104 96 - 108 mEq/L [facility] Bicarbonate (CO2) 21 20 - 31 mEq/L [facility] Calcium 9.4 8.7 - 10.4 mg/dL [facility] Comment: Please note change in reference range. Corrected Calcium 9.3 8.7 - 10.4 mg/dL [facility] Comment: Corrected Calcium is not equivalent to measured Ionized Calcium. Phosphorus 6.5(H) 2.6 - 4.5 mg/dL [facility] Calcium Phosphorus Product 61(H) 0 - 54 [facility] Calcium Phosporus Product, Cor 60(H) 0 - 54 [facility] Total Protein 6.6 6.0 - 8.5 g/dL [facility] Albumin 4.1 3.5 - 5.2 g/dL [facility] Globulin, Total 2.5 2.0 - 4.0 g/dL [facility] A/G Ratio 1.6 1.0 - 2.0 [facility] Iron 167(H) 45 - 160 mcg/dL [facility] UIBC 88(L) 155 - 355 mcg/dL [facility] TIBC 255 185 - 515 mcg/dL [facility] Iron Saturation (TSat) 65(H) 20 - 55 % [facility] 04/09/2024 04/10/2024 6:3 9 PM CDT Narrative [facility] - 04/10/2024 Unless otherwise specified, test(s) performed at: [facility], [address] [place] [address], [place] [address] ADVERTISING DISPLAY ROTATOR: Arnoldo Patricio M.D., Ph.D For any questions, please call customer service at FREQUENCY:MONTHLY Resulting Agency Comment Specimen source: Serum Jagjit Martinez MD LAB BLOOD ORDERABLES Final Re sult [facility] See order comments or contact performing lab Unknown, [place] * (ABNORMAL) HEMATOLOGY (04/09/2024) WBC 10.41 4.80 - 10.80 1000/mcL [facility] RBC 3.39(L) 4.70 - 6.10 mill/mcL [facility] Hematocrit 33.7(L) 42.0 - 52.0 % [facility] MCV 100 80 - 100 fl [facility] MCH 33.2(H) 27.0 - 31.0 pg [facility] MCHC 33.4 30.0 - 36.0 g/dL [facility] RDW 13.7 11.5 - 14.5 % [facility] Hemoglobin 11.3(L) 14.0 - 18.0 g/dL [facility] Hemoglobin x 3 33.9(L) 42.0 - 54.0 % [facility] Platelets 276 130 - 400 1000/mcL [facility] 04/09/2024 04/10/2024 7:0 3 PM CDT Narrative [facility] - 04/10/2024 Unless otherwise specified, test(s) performed at: [facility], [address] [place] [address], [place] [address] ADVERTISING DISPLAY ROTATOR: Arnoldo Patricio M.D., Ph.D For any questions, please call customer service at FREQUENCY:MONTHLY Resulting Agency Comment Specimen source: Blood Jagjit Martinez MD LAB BLOOD ORDERABLES Final Re sult [facility] See order comments or contact performing lab Unknown, [place] documented in this encounter Visit Diagnoses Not on filedocumented in this encounter Care Teams Dry Chain Puller Relationship Specialty [place] [address] [place] [address] PCP - General Family Medicine 3/3/21 documented as of this encounter
--- OUTSIDE RECORDS SUMMARY | 2024-05-27 08:19 | XMS_ITS | Encounter Summary ---
Author Organization [facility] [place] Address [address] [place] [address] Care Team Providers Care Power Superintendent Name Role Phone Bin Camacho MD Primary Care Provider [phone] Encounter Details Date Type Department Care Team (Late st Contact Info) Description 03/05/2024 Treatment [facility] [place] [address] [place] [address] Uyen Monsivais, RAMIREZ-HEAVY EQUIPMENT FIELD MECHANIC [address] [facility] [address] [place] [address] Social History Tobacco Use Types [...] Name: Obi Mcdowell : 1955 Chart #: [id number] Sex: M This patient was personally seen [...] AM ) BP (sit): 168/81 AP(-) / ELIGIBILITY ANALYST: 239/182 Pulse: 72 Chairside data as of [...] mcg IVP Every 4 weeks 02/20/2024 02/18/2025 DRAGGER OUT: Jagjit Martinez MD LOCATION: [facility] [phone] SCHEDULE: -- 1st Shift EDW: kg. DIALYZER: HD DURATION: NEEDLE SIZE: ANTICOAG: BATH: QB: ml/min QD: ml/min Subjective Tolerating dialysis well. Good appetite. Reports no trouble with access. 02/22/24: He is doing very well. Had c-scope done and it was clear. Has skin cancer removal scheduled in [place]. No symptoms on dialysis. BP controlled. Denies any new symptoms. AVF working well. Advanced Practitioner Subjective PATIENT ACCOUNT REPRESENTATIVE 03/05/2024: Patient seen at chairside. Doing good. [...] with recent runs. Continue plan of care. PATIENT ACCOUNT REPRESENTATIVE 01/28/2024: Seen while on dialysis. States that [...] as directed as directed. prn RenaPlex-D (vit b,e-sn-xgxq-selen-vit d3-e) 800 mcg-12.5 mg-2,000 unit tablet Take [...] at goal. Intact PTH is at goal. [employer] Agent will adjust binders and vitamin D per [...] Status: Patient has evaluation underway. Center - [place] He declines COVID vaccination. I notified [...] filedocumented in this encounter Care Teams Power Superintendent Relationship Specialty [place] [address] [place] [address] PCP - General Family Medicine 09/08/20 documented as of this encounter
--- OUTSIDE RECORDS SUMMARY | 2024-05-27 08:19 | XMS_ITS | Encounter Summary ---
Author Organization [facility] [place] Address [address] [place] [address] Care Team Providers Care Blending Machine Operator Name Role Phone Bin Camacho MD Primary Care Provider [phone] Encounter Details Date Type Department Care Team (Late st Contact Info) Description 05/14/2024 Treatment [facility] [place] [address] [place] [address] Uyen Monsivais, RAMIREZ-LICENSED CHEMICAL SPRAY TECHNICIAN [address] [place] [address] Social History Tobacco Use Types [...] Dialysis Note - Uyen Monsivais APRN-CNP - 05/14/2024 12:00 AM FIBER OPTIC ASSEMBLER Patient: Obi Mcdowell : 1955 Note Type: Dialysis Rounds-Comp Service Date: 05/14/2024 This patient was personally seen for a complete visit as part of routine monthly dialysis care for end stage renal disease. Attending Engineering Mgr: DONOVAN MUÑOZ Dialysis Location: [facility] Schedule: Shift: OVERVIEW COMMENTS: 05/14/2024: Seen on treatment. Feeling well. Monthly [...] Dr Alcazar HOME MEDICATIONS Medications reviewed. Current [facility] Outpatient Medications atorvastatin 20 mg tablet [...] three times a day with meals. Current [facility] Allergies Allergen: No Known Allergies Allergen: No Known Drug Allergies Allergen: No Known Food Allergies DIALYSIS PRESCRIPTION Treatment Data Treatment Date: 05/14/2024 started at: 6:15 AM Dialysate / Machine Temp (prescribed): 37.0*C Dialysate / Machine Temp (actual): 37.0*C BFR (prescribed): 450 BFR (actual): 450 DFR (prescribed): Autoflow 1.5 DFR (actual): 700 Prescribed Time: 03:30 EDW (kg): 105.0 Dialyzer: 180NRe Optiflux Dialysate: 2.0 K, 2.5 Ca, 1.0 Mg, 100 Dextrose (G2251) Sodium: 137 Bicarb: 33 Pre Dialysis Vitals Pre BP Sit: 139/73 Pre Wt (kg): 108.0 EDW Deviation (kg): 3.0 Temp: 97.6*F Current Dialysis Vitals BP Sit: 125/75 AP/CLINICAL TECH: 210/186 Pulse: 62 TREATMENT MEDICATIONS ORDERS Heparin Sodium (Porcine) 1,000 Units/mL Systemic 4000 units IVP Every Treatment 05/02/2024 - 05/01/2025 Heparin Sodium (Porcine) 1,000 Units/mL Systemic 2000 units IVP Every Treatment 03/21/2024 - 03/20/2025 BP AND FLUID ASSESSMENT Acceptable blood pressure. Fluid status acceptable. EDW appropriate. COMMENTS: BP has been more stable post-run Post BP Sit 152/74 - 05/12/2024 162/85 - 05/09/2024 140/72 - 05/07/2024 Post Wt (kg) 105.0 - 05/12/2024 104.6 - 05/09/2024 105.1 - 05/07/2024 EDW (kg) 105.0 - 05/12/2024 105.0 - 05/09/2024 105.0 - 05/07/2024 Deviation (kg) 0.0 - 05/12/2024 -0.4 - 05/09/2024 0.1 - 05/07/2024 ADEQUACY ASSESSMENT Target met. Prescription compliance acceptable. [...] ASSESSMENT Vascular access examined. AVF/AVG positive thrill/bruit. AVFistula Standard Right Upper Arm Active (In Use) - 05/09/2022 Placed - Unknown Access Flow 1646 (05/02/24) 1991 (03/19/24) 1532 (02/11/24) ANEMIA ASSESSMENT Anemia targets met. Hemoglobin at target. ELIANA adjusted per protocol. No iron needed at this time. COMMENTS: No ELIANA with Hgb >11 Hemoglobin 11.3 (05/07/24) 11.8 (04/30/24) 11.6 (04/23/24) Iron Saturation (TSat) 65 (04/09/24) 75 (03/12/24) 94 (02/13/24) Ferritin 1,114 (02/13/24) 689 (11/07/23) 581 (08/15/23) Iron 167 (04/09/24) 200 (03/12/24) 231 (02/13/24) TIBC 255 (04/09/24) 265 (03/12/24) 245 (02/13/24) Reticulocyte Hemoglobin 34.2 (01/16/24) 33.0 (12/26/23) 34.7 (12/19/23) MCV 100 (04/09/24) 103 (03/12/24) 105 (02/13/24) Platelets 276 (04/09/24) 256 (03/12/24) 254 (02/13/24) BMM ASSESSMENT PTH within target. Hyperphosphatemia noted. Counseled regarding dietary compliance. Referred to puppy sitter for further counseling. Calcium controlled. Bone and mineral metabolism parameters reviewed. COMMENTS: Temporary adjustment to binders d/t coverage Calcium 9.4 04/09/24 10.3 03/12/24 9.9 02/13/24 Corrected Calcium 9.3 04/09/24 10.1 03/12/24 9.7 02/13/24 Phosphorus 6.5 04/09/24 5.9 03/12/24 4.4 02/13/24 Calcium Phosphorus Product 61 04/09/24 61 03/12/24 44 02/13/24 PTH 551 02/13/24 596 11/07/23 681 10/10/23 Vitamin D, 25-OH, Total 27.7 11/07/23 Magnesium 2.2 02/13/24 2.3 11/07/23 2.1 08/15/23 Alkaline Phosphatase 145 02/13/24 116 11/07/23 103 08/15/23 NUTRITION ASSESSMENT Albumin at goal. Potassium controlled. Albumin 4.1 04/09/24 4.2 03/12/24 4.2 02/13/24 Potassium 4.6 04/09/24 4.6 03/12/24 4.9 02/13/24 eNPCR 1.21 04/09/24 1.15 03/12/24 1.12 02/13/24 TRANSPLANT STATUS COMMENT COMMENTS: 05/05/24: Nearly active for Tx listing. Discussed 4 options for transplant in [place] and he would like to change to [place]. He will be provided with numbers to all Tx programs. PHYSICAL EXAM Exam performed. Vital Signs Reviewed. Lungs - Clear. CV - Blood pressure noted. CV - RRR. No edema. EXT - No ulcers. ADDITIONAL LABS WBC 10.41 (04/09/24) 6.73 (03/12/24) 9.31 (02/13/24) ADDITIONAL COMMENT COMMENTS: Continue plan of care No change to dialysis orders Signed by: UYEN MONSIVAIS APRN-CNP on 05/14/2024 at 09:34:58 AM Transcribed by: UYEN MONSIVAIS APRN-CNP on 05/14/2024 at 09:34:58 AM documented in this encounter Plan of Treatment Not on file documented as of this encounter Visit Diagnoses Not on filedocumented in this encounter Care Teams Blending Machine Operator Relationship Specialty [place] [address] [place] [address] PCP - General Family Medicine 09/08/20 documented as of this encounter
--- OUTSIDE RECORDS SUMMARY | 2024-05-27 08:19 | XMS_ITS | Encounter Summary ---
Author Organization [facility] Address [address] [place] [address] Care Team Providers Care Senior Cytogenetic Technologist Name Role Phone Bin Camacho MD Primary Care Provider [phone] Encounter Details Date Type Department Care Team (Late st Contact Info) Description 02/27/2024 Orders Only [facility] [place] [address] [facility] [address] [place] [address] Jagjit Martinez MD [address] [place] [address] Social History Tobacco Use Types [...] 02/28/2024 Unless otherwise specified, test(s) performed at: [facility], [address] [place] [address], [place] [address] AUTO BODY REPAIRMAN: Arnoldo Patricio M.D., Ph.D For any questions, please call customer service at FREQUENCY:OTHER Resulting Agency Comment Specimen source: Blood us Jagjit Martinez MD LAB BLOOD ORDERABLES Final Re sult [facility] See order comments or contact performing lab Unknown, [place] documented in this encounter Visit Diagnoses Not on filedocumented in this encounter Care Teams Senior Cytogenetic Technologist Relationship Specialty [place] [address] [place] [address] PCP - General Family Medicine 09/08/20 documented as of this encounter
--- OUTSIDE RECORDS SUMMARY | 2024-05-27 08:19 | XMS_ITS | Encounter Summary ---
Author Organization [facility] Address [address] [place] [address] Care Team Providers Care Metal Annealer Name Role Phone Bin Camacho MD Primary Care Provider [phone] Encounter Details Date Type Department Care Team (Late st Contact Info) Description 05/14/2024 Orders Only [facility] [place] [address] [facility] [address] [place] [address] Jagjit Martinez MD [address] [place] [address] Social History Tobacco Use Types [...] Date/Time Associated Diagnosis Comments HD KINETICS Routine 05/14/2024 SPECIAL CHEMISTRY Routine 05/14/2024 POST CHEMISTRY Routine 05/14/2024 TRACE ELEMENTS Routine 05/14/2024 HEMATOLOGY Routine 05/14/2024 CHEMISTRY Routine 05/14/2024 CHEMISTRY Routine 05/14/2024 [facility] LAB RESULTS Routine 05/14/2024 documented in this encounter Results * [facility] Lab Results (05/14/2024) [facility] nPCR_HD 1.25 [facility] spKt/V Gotch 1.55 [facility] ge Brandon eKdrt/V 1.31 Knowledge [place] eKt/V Gotch 1.31 [facility] e Center eNPCR 1.15 [facility] spKt/V (Daugirdas II) 1.49 [facility] eKt/V (Tattersall) 1.28 [facility] WSTDKT/V 2.4 [facility] PCR 77.30 [facility] 05/14/2024 05/14/2024 [facility] [place] LAB BLOOD ORDERABLES Final Result [facility] Contact Performing lab Unknown, [place] * TRACE ELEMENTS (05/14/2024) [facility] Aluminum <5 0 - 10 mcg/L [facility]! Comment: This test was developed and its performance characteristics determined by [facility]. It has not been cleared or approved by the FDA. The laboratory is regulated under CLIA as qualified to perform high complexity testing. This test is used for clinical purposes. It should not be regarded as investigational or for research. 05/14/2024 05/15/2024 5:1 5 AM SPEECH LANGUAGE SPECIALIST Narrative [facility] - 05/15/2024 Unless otherwise specified, test(s) performed at: [facility], [address] [place] [address], [place] [address] INSIDE CONTRACTOR SALES: Arnoldo Patricio M.D., Ph.D For any questions, please call customer service at FREQUENCY:MONTHLY Resulting Agency Comment Specimen source: Serum Jagjit Martinez MD LAB BLOOD ORDERABLES Final Re sult Performing Organization Address [facility] de Phone Number [facility] See order comments or contact performing lab Unknown, [place] * (ABNORMAL) [facility] (05/14/2024) PTH 1,074(H) 16 - 80 pg/mL [facility] 05/14/2024 05/15/2024 7:5 5 AM SPEECH LANGUAGE SPECIALIST Narrative [facility] - 05/15/2024 Unless otherwise specified, test(s) performed at: [facility], [address] [place] [address], [place] [address] INSIDE CONTRACTOR SALES: Arnoldo Patricio M.D., Ph.D For any questions, please call customer service at FREQUENCY:MONTHLY Resulting Agency Comment Specimen source: Plasma Jagjit Martinez MD LAB BLOOD ORDERABLES Final Re sult Performing Organization Address [facility] de Phone Number [facility] See order comments or contact performing lab Unknown, [place] * HD KINETICS (05/14/2024) Pathologist [facility] % Urea Reduction 73 65 - 80 % [facility] 05/14/2024 05/15/2024 8:0 6 AM SPEECH LANGUAGE SPECIALIST Narrative Resulting Agency Comment Specimen source: Plasma Jagjit Martinez MD LAB BLOOD ORDERABLES Final Re sult Performing Organization Address [facility] de Phone Number [facility] See order comments or contact performing lab Unknown, [place] * (ABNORMAL) POST CHEMISTRY (05/14/2024) BUN Post Dialysis 20(H) 6 - 19 mg/dL [facility] 05/14/2024 05/15/2024 8:0 6 AM SPEECH LANGUAGE SPECIALIST Narrative [facility] - 05/15/2024 Unless otherwise specified, test(s) performed at: [facility], [address] [place] [address], [place] [address] INSIDE CONTRACTOR SALES: Arnoldo Patricio M.D., Ph.D For any questions, please call customer service at FREQUENCY:MONTHLY Resulting Agency Comment Specimen source: Plasma Jagjit Martinez MD LAB BLOOD ORDERABLES Final Re sult [facility] See order comments or contact performing lab Unknown, [place] * SPECIAL CHEMISTRY (05/14/2024) Vitamin D, 25-OH, Total 56.2 30.0 - 100.0 ng/mL [facility] Comment: Please Note: Effective July 17, 2021, the methodology for this test has changed to the [employer] method 05/14/2024 05/15/2024 6:5 9 AM SPEECH LANGUAGE SPECIALIST Narrative Resulting Agency Comment Specimen source: Serum Jagjit Martinez MD LAB BLOOD BANK TEST ORDERABLE S Final Result Performing Organization Address City/[facility]/ZIP Co de Phone Number [facility] See order comments or contact performing lab Unknown, [place] * (ABNORMAL) [facility] (05/14/2024) BUN 73(H) 6 - 19 mg/dL [facility] Creatinine 10.09(H) 0.60 - 1.30 mg/dL [facility] BUN/Creatinine Ratio 7.2(L) 10.0 - 20.0 [facility] Sodium 137 136 - 145 mEq/L [facility] Potassium 5.1 3.5 - 5.1 mEq/L [facility] Chloride 102 96 - 108 mEq/L [facility] Bicarbonate (CO2) 19(L) 20 - 31 mEq/L [facility] Calcium 9.5 8.7 - 10.4 mg/dL [facility] Comment: Please note change in reference range. Corrected Calcium 9.3 8.7 - 10.4 mg/dL [facility] Comment: Corrected Calcium is not equivalent to measured Ionized Calcium. Phosphorus 8.2(H) 2.6 - 4.5 mg/dL [facility] Calcium Phosphorus Product 78(H) 0 - 54 [facility] Calcium Phosporus Product, Cor 76(H) 0 - 54 [facility] Alkaline Phosphatase 117 40 - 129 U/L [facility] Total Protein 6.6 6.0 - 8.5 g/dL [facility] Albumin 4.3 3.5 - 5.2 g/dL [facility] Globulin, Total 2.3 2.0 - 4.0 g/dL [facility] A/G Ratio 1.9 1.0 - 2.0 [facility] Magnesium 2.2 1.6 - 2.6 mg/dL [facility] Ferritin 1,087(H) 22 - 322 ng/mL [facility] Iron 194(H) 45 - 160 mcg/dL [facility] UIBC 66(L) 155 - 355 mcg/dL [facility] TIBC 260 185 - 515 mcg/dL [facility] Iron Saturation (TSat) 75(H) 20 - 55 % [facility] 05/14/2024 05/15/2024 6:5 9 AM SPEECH LANGUAGE SPECIALIST Narrative [facility] - 05/15/2024 Unless otherwise specified, test(s) performed at: [facility], [address] [place] [address], [place] [address] INSIDE CONTRACTOR SALES: Arnoldo Patricio M.D., Ph.D For any questions, please call customer service at FREQUENCY:MONTHLY Resulting Agency Comment Specimen source: Serum us Jagjit Martinez MD LAB BLOOD ORDERABLES Final Re sult [facility] See order comments or contact performing lab Unknown, [place] * (ABNORMAL) HEMATOLOGY (05/14/2024) WBC 10.79 4.80 - 10.80 1000/mcL [facility] [...] [facility] 05/14/2024 05/15/2024 8:1 9 AM SPEECH LANGUAGE SPECIALIST Narrative [facility]ITT[facility] - 05/15/2024 Unless otherwise specified, test(s) performed at: [facility], [address] [place] [address], [place] [address] INSIDE CONTRACTOR SALES: Arnoldo Patricio M.D., Ph.D For any questions, please call customer service at FREQUENCY:MONTHLY Resulting Agency Comment Specimen source: Blood us Jagjit Martinez MD LAB BLOOD ORDERABLES Final Re sult [facility] See order comments or contact performing lab Unknown, [place] documented in this encounter Visit Diagnoses Not on filedocumented in this encounter Care Teams Metal Annealer Relationship Specialty [place] [address] [place] [address] PCP - General Family Medicine 09/08/20 documented as of this encounter
--- OUTSIDE RECORDS SUMMARY | 2024-05-27 08:19 | XMS_ITS | Encounter Summary ---
Author Organization [facility] Address [address] [facility] [facility] [address] [facility] [address] [place] [address] Care Team Providers Care Nut Tightener Name Role Phone Bin Camacho MD Primary Care Provider [phone] Encounter Details Date Type Department Care Team (Late st Contact Info) Description 04/23/2024 Orders Only [facility] [place] [address] [facility] [address] [place] [address] Jagjit Martinez MD [address] [place] [address] Social History Tobacco Use Types [...] Priority Date/Time Associated Diagnosis Comments HEMATOLOGY Routine 04/23/2024 documented in this encounter Results * (ABNORMAL) HEMATOLOGY (04/23/2024) Hemoglobin 11.6(L) 14.0 - 18.0 g/dL [facility] Hemoglobin x 3 34.8(L) 42.0 - 54.0 % [facility] 04/23/2024 04/24/2024 10: 28 AM CDT Narrative [facility] - 04/24/2024 Unless otherwise specified, test(s) performed at: [facility], [address] [place] [address], [place] [address] SERVICES MANAGER: Arnoldo Patricio M.D., Ph.D For any questions, please call customer service at FREQUENCY:OTHER Resulting Agency Comment Specimen source: Blood us Jagjit Martinez MD LAB BLOOD ORDERABLES Final Re sult [facility] See order comments or contact performing lab Unknown, [place] documented in this encounter Visit Diagnoses Not on filedocumented in this encounter Care Teams Nut Tightener Relationship Specialty [place] [address] [place] [address] PCP - General Family Medicine 09/08/20 documented as of this encounter
[2024-05-27] MEDS: SODIUM CHLORIDE 0.9 % (FLUSH) 10 ML SYRINGE IVF (09:55)
[2024-05-27] MEDS: REGADENOSON 0.4 MG/5 ML SYRINGE IVP (09:55)
[2024-05-27 10:11] VITALS: BP 142/70; PULSE 87; RESP 16
--- NOTE | 2024-05-27 10:51 | W.PM.STED ---
Stress Test Note Date Date Seen: 05/27/24 Date of test: 05/27/24 Providers Primary care provider: Sapna Mccauley Stress test physician: Alberto Allison Stress Test Note Stress test ordered: Lexiscan Indication for test: Preoperative coronary artery disease screen Stress test medicine: Lexiscan Results discussion: This very nice gentleman presents for the above test after discussion the risks benefits and side effects he would like to proceed pretest EKG shows normal sinus rhythm, with a ventricular rate of 73 beats per minute blood pressure 142/70 4p standard Lexiscan protocol is employed over a 5 minute. , maximum heart rate was 98. Patient was asymptomatic and did not develop any symptoms at all during this test. Review the EKG showed no change in his rhythm, there is no ST wave changes suggestive of ischemia. Impression: Negative electrographic portion of Lexiscan. Patient tolerated test well. Follow up suggested: Await review of nuclear portion, clinical correlation with this will be needed. Patient left this testing facility in excellent condition. There were no complications
== END 2024-05-27 11:00 | disposition home or self-care (01) ==
PROVIDERS: PCP Nurse Practitioner Family; Visit Provider Nurse Practitioner Family
DX: Z13.6 Encounter for screening for cardiovascular disorders (principal); I48.0 Paroxysmal atrial fibrillation
CPT/HCPCS: 78452; 93016; 93017; A9500; J2785

== ENCOUNTER 2024-06-26 12:36 | Outpatient (CLI) | payer MEDICARE, OTHER, BC, SELFPAY | END 2024-06-26 12:37 | disposition home or self-care (01) | PROVIDERS: PCP Nurse Practitioner Family; Visit Provider Nurse Practitioner Family | DX: Z85.46 Personal history of malignant neoplasm of prostate (principal); Z12.5 Encounter for screening for malignant neoplasm of prostate; Z13.21 Encounter for screening for nutritional disorder | CPT/HCPCS: 82607; G0103 ==

== ENCOUNTER 2024-12-04 08:43 | Outpatient (CLI) | payer MEDICARE, BC, SELFPAY ==
[2024-12-06 03:03] LABS: Prostate Specific Antigen Free <0.1 ng/mL; Prostate Specific AntigenTotal <0.1 ng/mL (0.0-4.0)
== END 2024-12-04 08:44 | disposition home or self-care (01) ==
LOC: NPINS 08:43
PROVIDERS: Urology; PCP Nurse Practitioner Family; Referring Provider Nurse Practitioner Family; Visit Provider Nurse Practitioner Family
DX: E78.5 Hyperlipidemia, unspecified (principal); C61 Malignant neoplasm of prostate
CPT/HCPCS: 80061; 80076; 84153; 84154

== ENCOUNTER 2025-04-27 10:31 | Outpatient (CLI) | payer MEDICARE, BC, SELFPAY ==
[2025-04-29 02:56] LABS: Prostate Specific AntigenTotal <0.1 ng/mL (0.0-4.0)
== END 2025-04-27 10:32 | disposition home or self-care (01) ==
LOC: NPINS 10:33
PROVIDERS: PCP Nurse Practitioner Family; Visit Provider Urology
DX: C61 Malignant neoplasm of prostate (principal)
CPT/HCPCS: 84153; 84154